=== PATIENT | female | born 1940 | race Caucasian/White ===

== ENCOUNTER 2019-07-14 06:26 | Day surgery (SDC) | payer MEDICARE, OTHER ==
[~2019-07-14] VITALS: Ht 162.6 cm; Wt 60.3 kg
[2019-07-14] VITALS (12 sets, daily range): BP systolic 126–180; BP diastolic 49–89
[2019-07-14] MEDS ORDERED: normal saline 1,000 ML IV SCH (06:55)
[2019-07-14] MEDS ORDERED: LORazepam 0.5 MG tablet PO PRN (06:55)
[2019-07-14] MEDS ORDERED: diphenhydrAMINE 25mg capsule PO PRN (06:55)
[2019-07-14] MEDS ORDERED: DILT120T3 PO (07:27)
[2019-07-14] MEDS ORDERED: FURO-150 PO (07:27)
[2019-07-14] MEDS ORDERED: LORA10TA61 PO (07:27)
[2019-07-14] MEDS ORDERED: CYCL1DRO PO (07:27)
[2019-07-14] MEDS ORDERED: LISI10TA4 PO (07:27)
[2019-07-14] MEDS ORDERED: CARV-50 PO (07:27)
[2019-07-14] MEDS ORDERED: [UNRECOGNIZED DRUG - CODE] PO (07:27)
[2019-07-14] MEDS ORDERED: MULT-955 PO (07:27)
[2019-07-14] MEDS ORDERED: OCUVITE PO (07:27)
[2019-07-14] MEDS ORDERED: LIDOcaine/PRILOcaine 5gm cream TP ONE (07:35)
[2019-07-14] MEDS ORDERED: LIDOcaine 1% (10mg/ml)w/preservative injection 20ml MDV ONE (07:45)
[2019-07-14] MEDS ORDERED: iohexol 350MG/ML 100ml bottle IV ONE (07:45)
[2019-07-14] MEDS ORDERED: midazolam 2 mg/2 ml injection ONE (07:45)
[2019-07-14] MEDS ORDERED: heparin 1,000unit/ml 10ml vial 10 ML ONE (07:45)
[2019-07-14] MEDS ORDERED: nitroGLYCERIN-Tridil 50MG/D5W 250 ML IV ONE (07:45)
[2019-07-14] MEDS ORDERED: fentaNYL/PF 50MCG/1 ML 2ML syringe ONE (07:45)
[2019-07-14] MEDS ORDERED: iohexol 350 MG/ML 50ML vial IV ONE (07:45)
[2019-07-14 08:01] LABS: EOSINOPHILS # (AUTO) 0.1 X10'3 (0-0.9); EOSINOPHILS % (AUTO) 2.3 % (0-6); HEMATOCRIT 41.8 % (35.0-45.0); HEMOGLOBIN 14.4 g/dl (12.0-16.0); LYMPHOCYTES # (AUTO) 0.9 X10'3 (1.1-4.8); LYMPHOCYTES % (AUTO) 30.3 % (21-51); MEAN CORPUSCULAR HEMOGLOBIN 36.2 PG (27.0-31.0); MEAN CORPUSCULAR HGB CONC 34.4 g/dL (33.0-36.5); MEAN CORPUSCULAR VOLUME 105.3 FL (78-98); MEAN PLATELET VOLUME 8.1 FL (7.4-10.4); MONOCYTES # (AUTO) 0.3 X10'3 (0-0.9); NEUTROPHILS # (AUTO) 1.7 X10'3 (1.8-7.7); NEUTROPHILS % (AUTO) 57.4 % (42-75); PLATELET COUNT 76 X10'3 (140-440); RED BLOOD COUNT 3.97 X10'6 (4.20-5.60); RED CELL DISTRIBUTION WIDTH 12.9 % (11.5-14.5)
[2019-07-14 08:10] LABS: ALBUMIN 3.6 G/DL (3.4-5.0); ANION GAP 13 (8-16); BLOOD UREA NITROGEN 8 MG/DL (7-18); BUN/CREATININE RATIO 11.3 (6.6-38.0); CALCIUM 8.7 MG/DL (8.5-10.1); CHLORIDE 106 MMOL/L (99-107); CREATININE 0.71 MG/DL (0.40-0.90); GLUCOSE 130 MG/DL (70-104); POTASSIUM 3.7 MMOL/L (3.5-5.1); SODIUM 140 MMOL/L (135-145); TOTAL CARBON DIOXIDE 21.1 MMOL/L (24-32); eGFR 79 ML/MIN
[2019-07-14 08:15] LABS: PARTIAL THROMBOPLASTIN TIME 31 SECONDS (22-32)
[2019-07-14] MEDS ORDERED: furosemide 40mg/4ml inj ONE (08:27)
[2019-07-14] MEDS ORDERED: verapamil 2.5 mg/ml inj IV ONE (08:41)
[2019-07-14 09:07] LABS: LARGE PLATELETS FEW; PLATELET ESTIMATE DECREASED
[2019-07-14] MEDS ORDERED: potassium Cl 10 mEq/100mL bag IV ONE (09:30)
[2019-07-14] MEDS ORDERED: magnesium 2GM in 50ml NS 50 ML IV PRN ×2 (10:45→15:05)
[2019-07-14] MEDS ORDERED: potassium Cl 20 mEq SR tablet PO PRN ×5 (10:45→15:05)
[2019-07-14] MEDS ORDERED: potassium Cl 20mEq/100mL bag 100 ML IV PRN (10:45)
[2019-07-14] MEDS ORDERED: magnesium 4gm in 100ml NS 100 ML IV PRN ×2 (10:45→15:05)
[2019-07-14] MEDS ORDERED: potassium CL 10mEq/100ml bag 100 ML IV PRN ×2 (10:45→15:05)
--- NOTE | 2019-07-14 10:55 | NUR ---
Royce MARMOLEJO at bedside.
[2019-07-14] MEDS ORDERED: potassium Cl 20 mEq SR tablet PO ONE (11:15)
[2019-07-14] MEDS ORDERED: furosemide 20 MG/2 ML vial IV ONE (11:20)
--- NOTE | 2019-07-14 11:30 | NUR ---
CORRECTION VASCULAR BAND WAS DEFLATED NOT INFLATED 2ML NOTED ON ASSESSMENT.
[2019-07-14] MEDS ORDERED: potassium chloride 10mEq ER tablet PO ONE (13:00)
--- NOTE | 2019-07-14 13:00 | NUR ---
U/S tech at bedside.
[2019-07-14] MEDS ORDERED: acetaminophen 325mg tablet PO PRN (13:20)
--- NOTE | 2019-07-14 14:30 | NUR ---
pt to transported to x-ray
[2019-07-14] MEDS ORDERED: magnesium Cl slow-release 64mg tablet PO PRN (15:05)
--- NOTE | 2019-07-14 16:00 | NUR ---
RT at bedside for PFT study
[2019-07-14 16:31] LABS: ABG BASE EXCESS 2.9 mmol/L (-2.0-3.0); ABG HCO3 25.3 mmol/L (22.0-26.0); ABG OXYGEN SATURATION 96.3 % (95-98); ABG PCO2 (T) 32.3 mmHg (35.0-45.0); ABG PH (T) 7.511 (7.350-7.450); ABG PO2 (T) 77.8 mmHg (83-108); ALLEN'S TEST Positive; FCOHb 1.1 % (0.5-1.5); FLOW 16 L/min; FMetHb 0.1 % (0.3-1.12); FO2Hb 95.1 % (94-100); TOTAL HEMOGLOBIN 15.1 G/dl (12.0-16.0)
--- NOTE | 2019-07-14 17:20 | NUR ---
Pt iv dc'd, cannula intact, no s/s of bleeding or infection.
[2019-07-22] MEDS ORDERED: RANI-635 PO (13:35)
== END 2019-07-14 17:20 | disposition home or self-care (01) ==
LOC: SSTAY O 06:26 → EDSTATUS 08:00 → SSTAY O 17:20
PROVIDERS: ATTEND Internal Medicine Cardiovascular Disease
DX: R94.39 Abnormal result of other cardiovascular function study (principal); I25.10 Atherosclerotic heart disease of native coronary artery without angina pectoris; I11.0 Hypertensive heart disease with heart failure; I50.30 Unspecified diastolic (congestive) heart failure; M81.0 Age-related osteoporosis without current pathological fracture; I27.20 Pulmonary hypertension, unspecified; D64.9 Anemia, unspecified; I08.3 Combined rheumatic disorders of mitral, aortic and tricuspid valves; Z85.038 Personal history of other malignant neoplasm of large intestine; Z98.890 Other specified postprocedural states; Z79.899 Other long term (current) drug therapy; Z90.49 Acquired absence of other specified parts of digestive tract; Z80.1 Family history of malignant neoplasm of trachea, bronchus and lung
CPT/HCPCS: 36415; 71046; 80048; 82803; 84132; 85018; 85025; 85610; 85730; 93005; 93312; 93460; 93567; 94010; 94760; 99152; 99153; C1769; C1894; J1644; J1940; J2001; J2250; J3010; J3480; J7030; Q0163; Q9967; 36600; 93456; 93458; 93880; 93971; A4620; A5120; A6258; J3490

== ENCOUNTER 2019-07-23 05:32 | Inpatient (IN) | payer MEDICARE, OTHER ==
[2019-07-22 14:16] LABS: BASOPHILS % (AUTO) 0.7 % (0-1); EOSINOPHILS # (AUTO) 0.1 X10'3 (0-0.9); EOSINOPHILS % (AUTO) 2.5 % (0-6); LYMPHOCYTES % (AUTO) 22.9 % (21-51); MEAN CORPUSCULAR HEMOGLOBIN 36.3 PG (27.0-31.0); MEAN CORPUSCULAR HGB CONC 34.4 g/dL (33.0-36.5); MEAN CORPUSCULAR VOLUME 105.5 FL (78-98); MEAN PLATELET VOLUME 8.2 FL (7.4-10.4); MONOCYTES # (AUTO) 0.6 X10'3 (0-0.9); NEUTROPHILS # (AUTO) 2.7 X10'3 (1.8-7.7); NEUTROPHILS % (AUTO) 60.9 % (42-75); PRE OP HEMATOCRIT 43.9 % (35.0-45.0); PRE OP HEMOGLOBIN 15.1 g/dL (12.0-16.0); RED BLOOD COUNT 4.16 X10'6 (4.20-5.60); RED CELL DISTRIBUTION WIDTH 12.5 % (11.5-14.5)
[2019-07-22 14:23] LABS: CLARITY,URINE SLIGHTLY CLOUDY (Clear); COLOR,URINE STRAW (Yellow); GLUCOSE, URINE NEGATIVE (Neg); KETONES,URINE NEGATIVE (Neg); LEUKOCYTE ESTERASE ,URINE TRACE (Neg); NITRITES, URINE NEGATIVE (Neg); OCCULT BLOOD,URINE TRACE-INTACT (Neg); PH,URINE 6.5 (4.8-8.0); PROTEIN,URINE NEGATIVE (Neg); UROBILINOGEN,URINE 0.2 E.U/dL (0.2-1.0)
[2019-07-22 14:24] LABS: UA COLLECTION TYPE CLN CATCH MIDSTREAM
[2019-07-22 14:26] LABS: HEMOGLOBIN A1C 5.3 % (4.5-6.2)
[2019-07-22 14:27] LABS: PRE OP INR 1.2 INR; PRE OP PROTIME 11.9 SECONDS (9.0-12.0)
[2019-07-22 14:30] LABS: SQUAMOUS EPITHELIAL CELL,UR FEW /LPF (FEW)
[2019-07-22 14:31] LABS: BACTERIA,URINE FEW /HPF (Neg); TRANSITIONAL EPI CELLS,URINE FEW /HPF; WBC,URINE 0-4 /HPF (0-4)
[2019-07-22 14:32] LABS: RBC,URINE 0-2 /HPF (0-2)
[2019-07-22 14:36] LABS: ALBUMIN 3.8 G/DL (3.4-5.0); ALKALINE PHOSPHATASE 148 IU/L (46-116); BLOOD UREA NITROGEN 10 MG/DL (7-18); BUN/CREATININE RATIO 14.3 (6.6-38.0); CALCIUM 9.1 MG/DL (8.5-10.1); CHLORIDE 101 MMOL/L (99-107); PRE OP ALT 61 U/L (30-65); PRE OP ANION GAP 8 (8-16); PRE OP AST 55 U/L (10-37); PRE OP BILIRUB, TOTAL 1.3 MG/DL (0.0-1.0); PRE OP GLUCOSE 106 MG/DL (70-104); PRE OP POTASSIUM 3.8 MMOL/L (3.4-5.1); PRE OP SODIUM 136 MMOL/L (135-145); TOTAL CARBON DIOXIDE 27.5 MMOL/L (24-32); TOTAL PROTEIN 7.7 G/DL (6.4-8.2); eGFR 81 ML/MIN
[2019-07-22 14:52] LABS: PRE OP PLATELET COUNT 100 X10'3 (140-440)
[~2019-07-23] VITALS: Ht 162.6 cm; Wt 68.5 kg
[2019-07-23] VITALS (16 sets, daily range): BP systolic 108–183; BP diastolic 50–77
[2019-07-23] MEDS: insulin regular, human inj. 100 UNITS in normal saline 100ml IV IV SCH ×4 (05:30→15:06)
[~2019-07-23 05:32] MED LIST: CARV-50 PO; CYCL1DRO PO; DILT120T3 PO; DOCUMENT DATE & TIME OF BETA-BLOCKER PO ONE; FURO-150 PO; LISI10TA4 PO; LORA10TA61 PO; MULT-955 PO; OCUVITE PO; RANI-635 PO; ROPIVAcaine 0.5% (5mg/ml) 30ml vial ONE; VANCOMYCIN INJ 1000 MG in NORMAL SALINE 250ml IV.SOLN IV ONE; [UNRECOGNIZED DRUG - CODE] PO; cefazolin/dext.iso 2gm/100ml 100 ML IV ONE; dextrose 50%-water 50ml dispensing syringe IV PRN; famotidine 20mg tablet PO ONE; gabapentin 400mg capsule PO ONE; metoprolol tartrate 12.5mg (1/2 tablet) PO ONE; midazolam 2 mg/2 ml injection IV ONE; ringers solution, lacted 1,000 ML IV SCH
[2019-07-23] MEDS ORDERED: LIDOcaine 1% (10mg/ml) 2ml vial ONE (05:53)
[2019-07-23] MEDS ORDERED: papaverine 30 mg/ml 2ml inj. IA ONE ×2 (05:55→08:00)
[2019-07-23] MEDS ORDERED: heparin 10,000 units/1 ML INJ IR ONE ×2 (05:55→08:00)
[2019-07-23] MEDS ORDERED: famotidine 10mg tablet PO ONE (06:10)
[2019-07-23] MEDS: mupirocin 2% nasal ointment 1gm UD NS SCH ×4 (06:11→20:47)
[2019-07-23] MEDS ORDERED: DOPamine/D5W 400mg/250ml bag IV ONE (07:55)
[2019-07-23] MEDS ORDERED: aminocaproic acid 250 MG/1 ML inj. ONE ×2 (07:55→14:00)
[2019-07-23] MEDS ORDERED: nitroGLYCERIN in D5W 50mg/250ml (Tridil) infusion IV ONE (07:55)
[2019-07-23] MEDS ORDERED: sevoflurane 250ml liquid IH ONE (07:55)
[2019-07-23] MEDS ORDERED: protamine sulf. 10mg/ml inj. IV ONE (07:55)
[2019-07-23] MEDS ORDERED: SUFENTANIL CITRATE 50 MCG/ML 2ml ampule IV ONE (07:58)
[2019-07-23] MEDS ORDERED: MIDAZolam 5mg/5ml vial ONE (07:59)
[2019-07-23] MEDS ORDERED: pancuronium br 1mg/ml inj IV ONE (08:02)
[2019-07-23] MEDS ORDERED: etomidate 2mg/ml inj. ONE (08:02)
[2019-07-23] MEDS ORDERED: ePHEDrine 50MG/ML INJ. ONE (08:17)
[2019-07-23 08:50] LABS: ABG BASE EXCESS -1.6 mmol/L (-2.0-3.0); ABG HCO3 21.2 mmol/L (22.0-26.0); ABG OXYGEN SATURATION 99.8 % (95-98); ABG PCO2 30.5 mmHg (35.0-45.0); ABG PH 7.459 (7.350-7.450); ABG PO2 394.9 mmHg (60.0-100.0); CL (ABG) 103 mmol/L (99-107); FCOHb 1.2 % (0.5-1.5); FMetHb 0.3 % (0.3-1.12); FO2Hb 98.3 % (94-100); GLUCOSE (ABG) 96 mg/dl (70-104); IONIZED CA (ABG) 1.12 mmol/L (1.03-1.32); K (ABG) 3.6 mmol/L (3.3-5.1); NA (ABG) 132 mmol/L (135-145); TOTAL HEMOGLOBIN 14.1 G/dl (12.0-16.0)
[2019-07-23 09:26] LABS: ABG BASE EXCESS -1.5 mmol/L (-2.0-3.0); ABG HCO3 20.6 mmol/L (22.0-26.0); ABG OXYGEN SATURATION 99.5 % (95-98); ABG PCO2 27.7 mmHg (35.0-45.0); ABG PO2 210.9 mmHg (60.0-100.0); CL (ABG) 102 mmol/L (99-107); FCOHb 1.4 % (0.5-1.5); FMetHb 0.1 % (0.3-1.12); GLUCOSE (ABG) 73 mg/dl (70-104); IONIZED CA (ABG) 1.11 mmol/L (1.03-1.32); NA (ABG) 133 mmol/L (135-145); TOTAL HEMOGLOBIN 12.8 G/dl (12.0-16.0)
[2019-07-23 09:26] LABS: ACT @ 1.70 U 390 SEC (193-297); ACT @ 2.84 U 586 SEC (260-420); BASELINE ACT 157 SEC (101-148); PATIENT WEIGHT 59.0k KG
[2019-07-23 09:40] LABS: ABG BASE EXCESS VENOUS 0.5 mmol/L; ABG HCO3 VENOUS 24.1 mmol/L; ABG PCO2 VENOUS 35.1 mmHg; ABG PO2 VENOUS 50.3 mmHg; CL (ABG) 97 mmol/L (99-107); FHHb VENOUS 12.1 %; FMetHb VENOUS 0.3 %; FO2Hb VENOUS 86.6 %; GLUCOSE (ABG) 67 mg/dl (70-104); IONIZED CA (ABG) 0.96 mmol/L (1.03-1.32); K (ABG) 3.4 mmol/L (3.3-5.1); NA (ABG) 132 mmol/L (135-145); TOTAL HEMOGLOBIN 10.3 G/dl (12.0-16.0)
[2019-07-23] MEDS ORDERED: NORMAL SALINE IV ONE (09:45)
[2019-07-23] MEDS ORDERED: DESMOPRESSIN IV ONE (09:45)
[2019-07-23 09:51] LABS: ABG BASE EXCESS -1.1 mmol/L (-2.0-3.0); ABG OXYGEN SATURATION 99.5 % (95-98); ABG PCO2 48.2 mmHg (35.0-45.0); ABG PH 7.333 (7.350-7.450); ABG PO2 431.2 mmHg (60.0-100.0); CL (ABG) 99 mmol/L (99-107); FCOHb 0.4 % (0.5-1.5); FMetHb 0.3 % (0.3-1.12); FO2Hb 98.8 % (94-100); GLUCOSE (ABG) 67 mg/dl (70-104); IONIZED CA (ABG) 1.04 mmol/L (1.03-1.32); K (ABG) 4.9 mmol/L (3.3-5.1); NA (ABG) 132 mmol/L (135-145); TOTAL HEMOGLOBIN 10.7 G/dl (12.0-16.0)
[2019-07-23 10:20] LABS: ABG BASE EXCESS -0.9 mmol/L (-2.0-3.0); ABG HCO3 23.4 mmol/L (22.0-26.0); ABG OXYGEN SATURATION 99.3 % (95-98); ABG PCO2 37.6 mmHg (35.0-45.0); ABG PH 7.412 (7.350-7.450); ABG PO2 371.2 mmHg (60.0-100.0); CL (ABG) 100 mmol/L (99-107); FCOHb 0.3 % (0.5-1.5); FMetHb 0.4 % (0.3-1.12); FO2Hb 98.6 % (94-100); GLUCOSE (ABG) 71 mg/dl (70-104); IONIZED CA (ABG) 0.93 mmol/L (1.03-1.32); K (ABG) 4.3 mmol/L (3.3-5.1); NA (ABG) 133 mmol/L (135-145); TOTAL HEMOGLOBIN 10.9 G/dl (12.0-16.0)
[2019-07-23 10:55] LABS: ABG BASE EXCESS -1.6 mmol/L (-2.0-3.0); ABG HCO3 23.6 mmol/L (22.0-26.0); ABG OXYGEN SATURATION 99.3 % (95-98); ABG PCO2 41.2 mmHg (35.0-45.0); ABG PH 7.375 (7.350-7.450); ABG PO2 370.8 mmHg (60.0-100.0); CL (ABG) 103 mmol/L (99-107); FCOHb 0.4 % (0.5-1.5); FMetHb 0.7 % (0.3-1.12); FO2Hb 98.2 % (94-100); GLUCOSE (ABG) 102 mg/dl (70-104); IONIZED CA (ABG) 0.99 mmol/L (1.03-1.32); K (ABG) 5.4 mmol/L (3.3-5.1); NA (ABG) 132 mmol/L (135-145); TOTAL HEMOGLOBIN 11.1 G/dl (12.0-16.0)
[2019-07-23 11:21] LABS: ABG BASE EXCESS -0.4 mmol/L (-2.0-3.0); ABG HCO3 23.8 mmol/L (22.0-26.0); ABG OXYGEN SATURATION 99.3 % (95-98); ABG PCO2 37.3 mmHg (35.0-45.0); ABG PH 7.422 (7.350-7.450); ABG PO2 357.3 mmHg (60.0-100.0); CL (ABG) 104 mmol/L (99-107); FCOHb 0.1 % (0.5-1.5); FMetHb 0.5 % (0.3-1.12); FO2Hb 98.7 % (94-100); GLUCOSE (ABG) 131 mg/dl (70-104); IONIZED CA (ABG) 0.98 mmol/L (1.03-1.32); K (ABG) 4.3 mmol/L (3.3-5.1); NA (ABG) 132 mmol/L (135-145)
[2019-07-23 11:50] LABS: ABG BASE EXCESS 6.6 mmol/L (-2.0-3.0); ABG HCO3 30.7 mmol/L (22.0-26.0); ABG OXYGEN SATURATION 98.9 % (95-98); ABG PCO2 42.5 mmHg (35.0-45.0); ABG PH 7.477 (7.350-7.450); ABG PO2 324.8 mmHg (60.0-100.0); CL (ABG) 100 mmol/L (99-107); FCOHb 0.3 % (0.5-1.5); FMetHb 0.7 % (0.3-1.12); FO2Hb 97.9 % (94-100); GLUCOSE (ABG) 139 mg/dl (70-104); IONIZED CA (ABG) 0.89 mmol/L (1.03-1.32); K (ABG) 3.9 mmol/L (3.3-5.1); NA (ABG) 133 mmol/L (135-145); TOTAL HEMOGLOBIN 9.8 G/dl (12.0-16.0)
[2019-07-23 13:00] LABS: ABG BASE EXCESS VENOUS -6.1 mmol/L; ABG HCO3 VENOUS 15.2 mmol/L; ABG PCO2 VENOUS 21.4 mmHg; ABG PO2 VENOUS 54.1 mmHg; CL (ABG) 112 mmol/L (99-107); FCOHb VENOUS 1.6 %; FHHb VENOUS 10.1 %; FMetHb VENOUS 0.5 %; FO2Hb VENOUS 87.8 %; GLUCOSE (ABG) 123 mg/dl (70-104); IONIZED CA (ABG) 1.12 mmol/L (1.03-1.32); K (ABG) 3.2 mmol/L (3.3-5.1); NA (ABG) 137 mmol/L (135-145); TOTAL HEMOGLOBIN 14.5 G/dl (12.0-16.0)
[2019-07-23] MEDS ORDERED: calcium chloride 100 MG/1 ML inj IV ONE ×2 (13:08→14:00)
[2019-07-23 13:10] LABS: ACTIVATED CLOTTING TIME 98 SEC (101-148)
[2019-07-23 13:10] LABS: ACTIVATED CLOTTING TIME 143 SEC (101-148)
[2019-07-23] MEDS ORDERED: albumin (Human) 5% 250ml 250 ML IV ONE (13:22)
[2019-07-23] MEDS ORDERED: insulin regular, human inj. 100 UNITS in normal saline 100ml IV soln 100 ML IV SCH ×2 (13:50)
[2019-07-23] MEDS ORDERED: magnesium 4gm in 100ml NS 100 ML IV PRN (13:50)
[2019-07-23] MEDS ORDERED: sodium phosphate inj. 30 MMOL in dextrose 5%-water 250 ML IV PRN (13:50)
[2019-07-23] MEDS ORDERED: HYDROcodone/acetaminophen 10/325mg tab PO PRN (13:50)
[2019-07-23] MEDS ORDERED: dextrose 50%-water 50ml dispensing syringe IV PRN (13:50)
[2019-07-23] MEDS ORDERED: niCARDipine-NS 40mg/200ml IVPB 200 ML IV PRN (13:50)
[2019-07-23] MEDS ORDERED: Neutra Phos packet PO PRN (13:50)
[2019-07-23] MEDS ORDERED: DOPamine 400mg/D5W 250ml 250 ML IV PRN (13:50)
[2019-07-23] MEDS ORDERED: metoclopramide 5 mg/ml inj IV PRN (13:50)
[2019-07-23] MEDS ORDERED: morphine 4 MG/ML inj SYRINge IV PRN ×2 (13:50)
[2019-07-23] MEDS ORDERED: sodium phosphate inj. 15 MMOL in dextrose 5%-water 150 ML IV PRN (13:50)
[2019-07-23] MEDS ORDERED: albumin (Human) 5% 250ml 250 ML IV PRN (13:50)
[2019-07-23] MEDS ORDERED: normal saline 250ml IV soln 250 ML IV PRN (13:50)
[2019-07-23] MEDS ORDERED: pantoprazole 40 MG vial IV ONE (13:50)
[2019-07-23] MEDS ORDERED: potassium Cl 20 mEq SR tablet PO PRN (13:50)
[2019-07-23] MEDS ORDERED: nitroGLYCERIN-Tridil 50MG/D5W 250 ML IV PRN (13:50)
--- NOTE | 2019-07-23 13:50 | NUR ---
Received to room 2008, accompanied by MDs and surgical crew. Placed on ventilator, to hitch technician, arterial line and PA line pressure monitored. Chest tubes to suction at 20 cm. [place] V[place] cath to gravity drainage. Dressings are dry and intact. See assessment record. All vasoactive drugs are infusing via central line.
[2019-07-23] MEDS ORDERED: phenylephrine 10mg/ml inj. ONE (14:00)
[2019-07-23] MEDS ORDERED: methylPREDNISolone sod. succ. 500mg inj ONE (14:00)
[2019-07-23] MEDS ORDERED: MAGNESIUM SULFATE 4 MEQ/ML (5gm/10ml) injection ONE (14:00)
[2019-07-23] MEDS ORDERED: albumin (human) 25% 100 ML IV solution IV ONE (14:00)
[2019-07-23] MEDS ORDERED: LIDOcaine 2% (20 mg/ml) 5ml cardiac syringe ONE (14:00)
[2019-07-23] MEDS ORDERED: sodium bicarbonate (8.4%) 1 mEq/ml syringe ONE (14:00)
[2019-07-23] MEDS ORDERED: potassium Cl 2 mEq/ml inj IV ONE (14:00)
[2019-07-23] MEDS ORDERED: heparin 10,000 units/1 ML INJ ONE (14:00)
[2019-07-23 14:01] LABS: ABG BASE EXCESS -1.1 mmol/L (-2.0-3.0); ABG OXYGEN SATURATION 97.8 % (95-98); ABG PCO2 (T) 35.2 mmHg (35.0-45.0); ABG PH (T) 7.431 (7.350-7.450); ABG PO2 (T) 109.8 mmHg (83-108); FCOHb 0.3 % (0.5-1.5); FMetHb 0.2 % (0.3-1.12); FO2Hb 97.3 % (94-100); MINUTE VOLUME 5 L/min; PATIENT TEMPERATURE 36.4; PEEP 5 cm H2O; RESPIRATORY RATE 10 b/min; RESPIRATORY RATE (OBSERVED) 10 b/min; TIDAL VOLUME 500 mL; TOTAL HEMOGLOBIN 11.4 G/dl (12.0-16.0)
[2019-07-23 14:01] LABS: BASOPHILS % (AUTO) 0.2 % (0-1); EOSINOPHILS % (AUTO) 0.2 % (0-6); HEMOGLOBIN 10.6 g/dl (12.0-16.0); LYMPHOCYTES # (AUTO) 0.5 X10'3 (1.1-4.8); MEAN PLATELET VOLUME 7.3 FL (7.4-10.4); NEUTROPHILS # (AUTO) 6.6 X10'3 (1.8-7.7); RED CELL DISTRIBUTION WIDTH 12.5 % (11.5-14.5)
[2019-07-23 14:15] LABS: ALANINE AMINOTRANSFERASE 40 U/L (12-78); ALBUMIN 3.1 G/DL (3.4-5.0); ALBUMIN/GLOBULIN RATIO 1.4 (1.1-1.5); ALKALINE PHOSPHATASE 78 IU/L (46-116); ANION GAP 9 (8-16); ASPARTATE AMINO TRANSFERASE 67 U/L (10-37); BILIRUBIN,TOTAL 2.3 MG/DL (0.1-1.0); BLOOD UREA NITROGEN 10 MG/DL (7-18); BUN/CREATININE RATIO 11.8 (6.6-38.0); CALCIUM 9.9 MG/DL (8.5-10.1); CHLORIDE 106 MMOL/L (99-107); CREATININE 0.85 MG/DL (0.40-0.90); GLUCOSE 172 MG/DL (70-104); MAGNESIUM 2.7 MG/DL (1.5-2.4); PHOSPHORUS 2.3 MG/DL (2.3-4.5); SODIUM 142 MMOL/L (135-145); TOTAL CARBON DIOXIDE 26.9 MMOL/L (24-32); TOTAL PROTEIN 5.3 G/DL (6.4-8.2); eGFR 64 ML/MIN
[2019-07-23 14:19] LABS: HEMATOCRIT 30.3 % (35.0-45.0); LYMPHOCYTES % (AUTO) 6.7 % (21-51); MEAN CORPUSCULAR HGB CONC 35.2 g/dL (33.0-36.5); MEAN CORPUSCULAR VOLUME 105.4 FL (78-98); MONOCYTES # (AUTO) 0.7 X10'3 (0-0.9); MONOCYTES % (AUTO) 8.3 % (2-12); NEUTROPHILS % (AUTO) 84.6 % (42-75); PLATELET COUNT 131 X10'3 (140-440); RED BLOOD COUNT 2.87 X10'6 (4.20-5.60); WHITE BLOOD COUNT 7.9 X10'3 (4.5-11.0)
[2019-07-23 14:20] LABS: POTASSIUM 3.5 MMOL/L (3.5-5.1)
[2019-07-23 15:00] LABS: PARTIAL THROMBOPLASTIN TIME 42 SECONDS (22-32)
[2019-07-23] MEDS: potassium Cl 20mEq/100mL bag 100 ML IV PRN ×3 (15:24→18:22)
[2019-07-23] MEDS: sodium chloride 0.45% 1,000 ML IV SCH (15:25)
[2019-07-23] MEDS: ceFAZolin 1GM/D5W- ADD-VANTAGE 50 ML IV SCH (16:24)
[2019-07-23] MEDS: insulin Lispro (HumaLOG) vial - multi-dose SQ SCH (17:00)
--- NOTE | 2019-07-23 18:03 | NUR ---
Problems reprioritized. Patient report given, questions answered & plan of care reviewed with oncoming shift.
--- NOTE | 2019-07-23 18:30 | NUR ---
Patient in room CICU 2007. I have received report from Claribel HARE and had the opportunity to ask questions and assume patient care. Patient intubated, very drowsy but easily arousable. Patient breathing at set rate of 10 breaths/min. SBT trial attempted, minute ventilation dropped to 2.2, rate dropped to 4 breaths/min, tidal volumes dropped to 200s. Placed patient back on ordered rate. SBP in 130s, on 5mcg/kg/min nitro and 2.0 mcg/kg/min of dopamine. Patient 100% AV paced with rate set at 80 bpm. Will continue to monitor patient closely.
[2019-07-23] MEDS: cycloSPORINE 0.05% ophthalmic emulsion EACHEYE SCH (20:00)
[2019-07-23] MEDS: docusate sod 100mg capsule PO SCH (20:00)
[2019-07-23] MEDS: gabapentin 300mg capsule PO SCH (20:46)
[2019-07-23] MEDS: vancomycin/NS 1 GM ADD-VANTAGE 250 ML IV SCH (20:47)
[2019-07-23 21:41] LABS: BASOPHILS % (AUTO) 0.1 % (0-1); EOSINOPHILS % (AUTO) 0 % (0-6); HEMATOCRIT 28.9 % (35.0-45.0); HEMOGLOBIN 10.1 g/dl (12.0-16.0); LYMPHOCYTES # (AUTO) 0.6 X10'3 (1.1-4.8); LYMPHOCYTES % (AUTO) 10.3 % (21-51); MEAN CORPUSCULAR HEMOGLOBIN 36.8 PG (27.0-31.0); MEAN CORPUSCULAR HGB CONC 34.9 g/dL (33.0-36.5); MEAN CORPUSCULAR VOLUME 105.4 FL (78-98); MEAN PLATELET VOLUME 8.2 FL (7.4-10.4); MONOCYTES # (AUTO) 0.4 X10'3 (0-0.9); MONOCYTES % (AUTO) 7.8 % (2-12); NEUTROPHILS # (AUTO) 4.7 X10'3 (1.8-7.7); NEUTROPHILS % (AUTO) 81.8 % (42-75); PLATELET COUNT 96 X10'3 (140-440); RED BLOOD COUNT 2.74 X10'6 (4.20-5.60); RED CELL DISTRIBUTION WIDTH 12.7 % (11.5-14.5); WHITE BLOOD COUNT 5.7 X10'3 (4.5-11.0)
--- NOTE | 2019-07-23 21:52 | NUR ---
Pacer rate turned down to 60 bpm. Patient rhythm dropped to 60 bpm, appeared to be first degree block with bradycardia. Rate turned back up to 80 bpm.
[2019-07-23 21:55] LABS: ALBUMIN 3.4 G/DL (3.4-5.0); ANION GAP 10 (8-16); BLOOD UREA NITROGEN 11 MG/DL (7-18); BUN/CREATININE RATIO 13.1 (6.6-38.0); CALCIUM 9.1 MG/DL (8.5-10.1); CHLORIDE 110 MMOL/L (99-107); CREATININE 0.84 MG/DL (0.40-0.90); GLUCOSE 140 MG/DL (70-104); MAGNESIUM 2.3 MG/DL (1.5-2.4); PHOSPHORUS 3.2 MG/DL (2.3-4.5); POTASSIUM 3.9 MMOL/L (3.5-5.1); SODIUM 145 MMOL/L (135-145); TOTAL CARBON DIOXIDE 25.2 MMOL/L (24-32); eGFR 65 ML/MIN
[2019-07-23] MEDS: ondansetron/PF 4mg/2ml inj IV PRN (22:05)
[2019-07-24] VITALS (24 sets, daily range): BP systolic 101–153; BP diastolic 41–110
[2019-07-24] MEDS: ceFAZolin 1GM/D5W- ADD-VANTAGE 50 ML IV SCH ×3 (00:48→16:41)
--- NOTE | 2019-07-24 00:53 | NUR ---
Multiple SBT trials have been made since beginning of shift. Patient ventilates adequately when awake, but continues to fall asleep and become apneic when asleep. Patient easily arousable, but falls asleep frequently and unable to stay awake long enough to maintain adequate ventilation. Remains intubated at this time, placed back on rate ordered by MD. Will continue to attempt SBT trials and to monitor patient LOC frequently. No weaning parameters have been obtained due to inability to ventilate spontaneously while asleep.
--- NOTE | 2019-07-24 01:55 | NUR ---
Patient purposely pulled out ET tube during linen change. RT and full charge bookkeeper notified. Patient placed on 4L NC, saturating at 96% and breathing evenly/unlabored at 20 breaths/min. Patient able to state name, voice hoarse with no stridor noted. Patient alert/oriented x4. BP elevated to 180s systollically, nitro increased to reduce BP per eMAR orders. Will continue to monitor patient respiratory status closely, will continue to monitor patient's BP and LOC as well.
[2019-07-24] MEDS ORDERED: albuterol 2.5 MG/3 ML nebule NEB PRN (02:10)
[2019-07-24 05:13] LABS: BASOPHILS % (AUTO) 0.1 % (0-1); EOSINOPHILS % (AUTO) 0 % (0-6); HEMATOCRIT 26.6 % (35.0-45.0); HEMOGLOBIN 9.3 g/dl (12.0-16.0); LYMPHOCYTES # (AUTO) 0.6 X10'3 (1.1-4.8); LYMPHOCYTES % (AUTO) 8.2 % (21-51); MEAN CORPUSCULAR VOLUME 105.9 FL (78-98); MEAN PLATELET VOLUME 8.2 FL (7.4-10.4); MONOCYTES # (AUTO) 0.6 X10'3 (0-0.9); MONOCYTES % (AUTO) 7.5 % (2-12); NEUTROPHILS # (AUTO) 6.4 X10'3 (1.8-7.7); NEUTROPHILS % (AUTO) 84.2 % (42-75); PLATELET COUNT 80 X10'3 (140-440); RED BLOOD COUNT 2.51 X10'6 (4.20-5.60); RED CELL DISTRIBUTION WIDTH 12.7 % (11.5-14.5); WHITE BLOOD COUNT 7.6 X10'3 (4.5-11.0)
[2019-07-24 05:22] LABS: PARTIAL THROMBOPLASTIN TIME 29 SECONDS (22-32)
[2019-07-24 05:36] LABS: ALANINE AMINOTRANSFERASE 191 U/L (12-78); ALBUMIN 3.3 G/DL (3.4-5.0); ALBUMIN/GLOBULIN RATIO 1.5 (1.1-1.5); ALKALINE PHOSPHATASE 68 IU/L (46-116); ANION GAP 11 (8-16); ASPARTATE AMINO TRANSFERASE 317 U/L (10-37); BILIRUBIN,TOTAL 1.4 MG/DL (0.1-1.0); BLOOD UREA NITROGEN 11 MG/DL (7-18); BUN/CREATININE RATIO 12.1 (6.6-38.0); CALCIUM 8.4 MG/DL (8.5-10.1); CHLORIDE 111 MMOL/L (99-107); CREATININE 0.91 MG/DL (0.40-0.90); GLUCOSE 108 MG/DL (70-104); MAGNESIUM 2.1 MG/DL (1.5-2.4); POTASSIUM 3.7 MMOL/L (3.5-5.1); SODIUM 147 MMOL/L (135-145); TOTAL CARBON DIOXIDE 25.3 MMOL/L (24-32); TOTAL PROTEIN 5.5 G/DL (6.4-8.2); eGFR 59 ML/MIN
[2019-07-24] MEDS: potassium Cl 20mEq/100mL bag 100 ML IV PRN ×2 (05:56→08:20)
[2019-07-24] MEDS: magnesium 2GM in 50ml NS 50 ML IV PRN (05:56)
--- NOTE | 2019-07-24 06:15 | NUR ---
Patient in room CICU 2007. I have received report from police shift commander and had the opportunity to ask questions and assume patient care.
--- NOTE | 2019-07-24 06:18 | NUR ---
Problems reprioritized. Patient report given, questions answered & plan of care reviewed with Claribel HARE.
[2019-07-24 07:16] LABS: PLATELET ESTIMATE DECREASED; TOTAL CELLS COUNTED 100
[2019-07-24] MEDS ORDERED: metoprolol tartrate 12.5mg (1/2 tablet) PO SCH (08:00)
[2019-07-24] MEDS ORDERED: aspirin 325mg tablet, delayed-release (Ecotrin) PO SCH (08:00)
[2019-07-24] MEDS: cycloSPORINE 0.05% ophthalmic emulsion EACHEYE SCH ×2 (08:11→21:46)
[2019-07-24] MEDS: docusate sod 100mg capsule PO SCH ×2 (08:11→20:49)
[2019-07-24] MEDS: gabapentin 300mg capsule PO SCH ×3 (08:11→20:49)
[2019-07-24] MEDS: multivitamins, therapeutics tablet PO SCH (08:11)
[2019-07-24] MEDS: vancomycin/NS 1 GM ADD-VANTAGE 250 ML IV SCH ×2 (08:12→20:48)
[2019-07-24] MEDS: atorvastatin 10mg tablet PO SCH (08:12)
[2019-07-24] MEDS: loratadine 10mg tablet PO SCH (08:12)
[2019-07-24] MEDS: mupirocin 2% nasal ointment 1gm UD NS SCH ×2 (08:12→20:49)
[2019-07-24] MEDS: insulin Lispro (HumaLOG) vial - multi-dose SQ SCH ×2 (08:15→19:06)
[2019-07-24] MEDS ORDERED: nitroGLYCERIN-Tridil 50MG/D5W 250 ML IV PRN (09:47)
[2019-07-24] MEDS ORDERED: DOPamine 400mg/D5W 250ml 250 ML IV PRN (09:47)
[2019-07-24] MEDS ORDERED: niCARDipine-NS 40mg/200ml IVPB 200 ML IV PRN (09:47)
[2019-07-24] MEDS: HYDROcodone/acetaminophen 10/325mg tab PO PRN ×3 (10:16→23:01)
--- NOTE | 2019-07-24 11:26 | NUR ---
CABG Consult: Pt will need CABG ed once stable prior to d/c. MCV 105.9 hx thrombocytopenia as well as colon CA w/ chemo [id number] per RN. MCV likely combination of factors per MD given pt no hx etoh or gastric surgery. Addendum: 07/24/19 at [address] Amended: Links added.
[2019-07-24] MEDS: sodium chloride 0.45% 1,000 ML IV SCH (16:45)
[2019-07-24] MEDS ORDERED: dextrose 50%-water 50ml dispensing syringe IV PRN ×2 (17:30)
[2019-07-24] MEDS ORDERED: dextrose ORAL solution 15 GM/59 ML bottle PO PRN ×2 (17:30)
[2019-07-24] MEDS ORDERED: glucagon, human recombinant 1mg kit SUBCUT PRN (17:30)
--- NOTE | 2019-07-24 18:05 | NUR ---
Problems reprioritized. Patient report given, questions answered & plan of care reviewed with oncoming shift.
[2019-07-24] MEDS: insulin glargine (Lantus) pen - multi-dose SQ SCH (21:49)
[2019-07-25] VITALS (24 sets, daily range): BP systolic 92–135; BP diastolic 32–59
[2019-07-25] MEDS: ceFAZolin 1GM/D5W- ADD-VANTAGE 50 ML IV SCH (00:46)
[2019-07-25 03:26] LABS: ALBUMIN 3.1 G/DL (3.4-5.0); ANION GAP 4 (8-16); BASOPHILS % (AUTO) 0 % (0-1); BLOOD UREA NITROGEN 29 MG/DL (7-18); CALCIUM 7.8 MG/DL (8.5-10.1); CHLORIDE 103 MMOL/L (99-107); CREATININE 1.53 MG/DL (0.40-0.90); EOSINOPHILS % (AUTO) 0 % (0-6); GLUCOSE 155 MG/DL (70-104); HEMATOCRIT 22.9 % (35.0-45.0); HEMOGLOBIN 7.9 g/dl (12.0-16.0); LYMPHOCYTES # (AUTO) 0.9 X10'3 (1.1-4.8); LYMPHOCYTES % (AUTO) 9.5 % (21-51); MAGNESIUM 2.7 MG/DL (1.5-2.4); MEAN CORPUSCULAR HEMOGLOBIN 36.6 PG (27.0-31.0); MEAN CORPUSCULAR HGB CONC 34.3 g/dL (33.0-36.5); MEAN CORPUSCULAR VOLUME 106.6 FL (78-98); MEAN PLATELET VOLUME 8.7 FL (7.4-10.4); MONOCYTES # (AUTO) 1.1 X10'3 (0-0.9); MONOCYTES % (AUTO) 11.1 % (2-12); NEUTROPHILS # (AUTO) 7.8 X10'3 (1.8-7.7); NEUTROPHILS % (AUTO) 79.4 % (42-75); PLATELET COUNT 61 X10'3 (140-440); POTASSIUM 5.2 MMOL/L (3.5-5.1); RED BLOOD COUNT 2.15 X10'6 (4.20-5.60); SODIUM 134 MMOL/L (135-145); TOTAL CARBON DIOXIDE 27.5 MMOL/L (24-32); WHITE BLOOD COUNT 9.9 X10'3 (4.5-11.0); eGFR 33 ML/MIN
[2019-07-25] MEDS ORDERED: furosemide 20 MG/2 ML vial IV ONE (07:40)
[2019-07-25] MEDS: atorvastatin 10mg tablet PO SCH (07:46)
[2019-07-25] MEDS: pantoprazole 40mg Tablet.DR PO SCH (07:47)
[2019-07-25] MEDS: cycloSPORINE 0.05% ophthalmic emulsion EACHEYE SCH ×2 (07:48→21:06)
[2019-07-25] MEDS: docusate sod 100mg capsule PO SCH ×2 (07:48→21:06)
[2019-07-25] MEDS: multivitamins, therapeutics tablet PO SCH (07:49)
[2019-07-25] MEDS: mupirocin 2% nasal ointment 1gm UD NS SCH (07:49)
[2019-07-25] MEDS: gabapentin 300mg capsule PO SCH ×2 (07:49→13:43)
[2019-07-25] MEDS: loratadine 10mg tablet PO SCH (07:49)
[2019-07-25] MEDS: aspirin 81mg tab.chew PO SCH (07:59)
[2019-07-25] MEDS ORDERED: multivitamins, therapeutics tablet PO SCH (08:00)
[2019-07-25] MEDS: insulin Lispro (HumaLOG) vial - multi-dose SQ SCH ×2 (08:52→13:40)
[2019-07-25] MEDS: HYDROcodone/acetaminophen 10/325mg tab PO PRN (11:06)
--- NOTE | 2019-07-25 18:10 | NUR ---
Patient in room CICU 2007. I have received report from offgoing RN and had the opportunity to ask questions and assume patient care.
--- NOTE | 2019-07-25 18:10 | NUR ---
Problems reprioritized. Patient report given, questions answered & plan of care reviewed with oncoming shift.
[2019-07-25] MEDS: insulin glargine (Lantus) pen - multi-dose SQ SCH (22:16)
[2019-07-26] VITALS (29 sets, daily range): BP systolic 93–126; BP diastolic 33–67
--- NOTE | 2019-07-26 00:47 | NUR ---
SBP remains in low 90s; AV pacer at 70/min; increased pacer rate to 80/min w/small improvement in SBP,
[2019-07-26] MEDS: acetaminophen 325mg tablet PO PRN ×2 (00:52→22:05)
[2019-07-26 02:59] LABS: BASOPHILS % (AUTO) 0.1 % (0-1); EOSINOPHILS % (AUTO) 0.3 % (0-6); HEMOGLOBIN 7.3 g/dl (12.0-16.0); LYMPHOCYTES # (AUTO) 1.2 X10'3 (1.1-4.8); LYMPHOCYTES % (AUTO) 16.3 % (21-51); MEAN CORPUSCULAR HEMOGLOBIN 36.8 PG (27.0-31.0); MEAN CORPUSCULAR HGB CONC 34.6 g/dL (33.0-36.5); MEAN CORPUSCULAR VOLUME 106.5 FL (78-98); MEAN PLATELET VOLUME 8.8 FL (7.4-10.4); MONOCYTES # (AUTO) 0.9 X10'3 (0-0.9); MONOCYTES % (AUTO) 11.4 % (2-12); NEUTROPHILS # (AUTO) 5.4 X10'3 (1.8-7.7); NEUTROPHILS % (AUTO) 71.9 % (42-75); PLATELET COUNT 51 X10'3 (140-440); RED BLOOD COUNT 1.98 X10'6 (4.20-5.60); RED CELL DISTRIBUTION WIDTH 12.7 % (11.5-14.5); WHITE BLOOD COUNT 7.5 X10'3 (4.5-11.0)
[2019-07-26 03:03] LABS: HEMATOCRIT 21.1 % (35.0-45.0)
[2019-07-26 03:18] LABS: ANION GAP 5 (8-16); BLOOD UREA NITROGEN 48 MG/DL (7-18); BUN/CREATININE RATIO 29.1 (6.6-38.0); CALCIUM 7.8 MG/DL (8.5-10.1); CHLORIDE 98 MMOL/L (99-107); CREATININE 1.65 MG/DL (0.40-0.90); GLUCOSE 116 MG/DL (70-104); MAGNESIUM 2.4 MG/DL (1.5-2.4); PHOSPHORUS 3.6 MG/DL (2.3-4.5); POTASSIUM 4.6 MMOL/L (3.5-5.1); SODIUM 128 MMOL/L (135-145); TOTAL CARBON DIOXIDE 25.5 MMOL/L (24-32); eGFR 30 ML/MIN
--- NOTE | 2019-07-26 03:39 | NUR ---
Transfusion of 1 unit PRBC begun at infusion rate of 50 ml/hr.
--- NOTE | 2019-07-26 04:05 | NUR ---
Transfusion rate increased to 150 ml/hr. This RN will continue to monitor patient for s/s of transfusion reaction.
[2019-07-26] MEDS: ondansetron/PF 4mg/2ml inj IV PRN (05:18)
--- NOTE | 2019-07-26 07:06 | NUR ---
Problems reprioritized. Patient report given, questions answered & plan of care reviewed with Maureen HARE.
[2019-07-26] MEDS: aspirin 81mg tab.chew PO SCH (08:45)
[2019-07-26] MEDS: atorvastatin 10mg tablet PO SCH (08:45)
[2019-07-26] MEDS: docusate sod 100mg capsule PO SCH ×2 (08:45→21:22)
[2019-07-26] MEDS: loratadine 10mg tablet PO SCH (08:45)
[2019-07-26] MEDS: multivitamins, therapeutics tablet PO SCH (08:45)
[2019-07-26] MEDS: pantoprazole 40mg Tablet.DR PO SCH (08:48)
[2019-07-26] MEDS ORDERED: furosemide 40mg/4ml inj IV ONE (09:05)
[2019-07-26] MEDS: HYDROcodone/acetaminophen 10/325mg tab PO PRN (09:58)
[2019-07-26] MEDS: benzocaine/menthol oral lozeng 1 EACH BOX MM PRN (10:53)
--- NOTE | 2019-07-26 12:25 | NUR ---
PATIENT UP AMBULATED WITH PT IN HALLWAY, AND IS NOW UP IN CHAIR. NO C/O AT THIS TIME. PATIENT STATES" CHIKACO ,THAT WAS GIVEN EARLIER , HELPED." CALL LIGHT IN REACH. HEART RATE IN THE 60 'S ; PACER RATE SET AT 30 PER ORDER. Addendum: 07/26/19 at 1237 by Ana Sanon RN Amended: Links added.
[2019-07-26] MEDS: insulin Lispro (HumaLOG) vial - multi-dose SQ SCH (13:55)
[2019-07-26] MEDS ORDERED: potassium Cl 20 mEq SR tablet PO ONE (16:00)
[2019-07-26] MEDS ORDERED: furosemide 20 MG/2 ML vial IV ONE (16:00)
--- NOTE | 2019-07-26 18:03 | NUR ---
PATIENT'S HEART RHYTHM CHANGED TO ATRIAL FIB , RATE 120. EKG TAKEN AND AFFIRMED RHYTHM. DR. WASHINGTON APPRISED ; ORDERS RECEIVED AND NOTED. Addendum: 07/26/19 at 1849 by Ana Sanon RN Amended: Links added.
--- NOTE | 2019-07-26 18:30 | NUR ---
Patient in room CICU 2007. I have received report from Maureen HARE and had the opportunity to ask questions and assume patient care.
--- NOTE | 2019-07-26 18:30 | NUR ---
REPORT GIVEN TO HAT DESIGNER RN,INCLUDING, BUT NOT LIMITED TO, DR. WASHINGTON'S ORDERS TO KEEP VIGILANT WATCH ON PATIENT'S HEART RHYTHM WITH CORDARONE GTT; DUE TO POSSIBLE DROP IN HEART RATE AND BLOCKING.TURN PACER RATE UP IF HEART RATE DROPS AND BLOCKING OCCURS. Addendum: 07/26/19 at 1950 by Ana Sanon RN Amended: Links added.
[2019-07-26] MEDS ORDERED: amiodarone 50MG/ML inj IV ONE (18:45)
[2019-07-26] MEDS ORDERED: amiodarone 150mg/dext, iso-os 100 ML IV ONE ×2 (18:45→18:46)
[2019-07-26] MEDS ORDERED: amiodarone/D5 360MG/200ML BAG 200 ML IV ONE (18:46)
[2019-07-26] MEDS: cycloSPORINE 0.05% ophthalmic emulsion EACHEYE SCH ×2 (21:22→22:05)
[2019-07-26] MEDS: amiodarone/D5 360MG/200ML BAG 200 ML IV SCH (21:29)
[2019-07-26] MEDS: insulin glargine (Lantus) pen - multi-dose SQ SCH (21:31)
[2019-07-27] VITALS (24 sets, daily range): BP systolic 92–137; BP diastolic 44–88
[2019-07-27 03:06] LABS: BASOPHILS % (AUTO) 0.1 % (0-1); EOSINOPHILS # (AUTO) 0.1 X10'3 (0-0.9); EOSINOPHILS % (AUTO) 1.3 % (0-6); HEMATOCRIT 23.4 % (35.0-45.0); HEMOGLOBIN 8.1 g/dl (12.0-16.0); LYMPHOCYTES % (AUTO) 17.6 % (21-51); MEAN CORPUSCULAR HEMOGLOBIN 36.1 PG (27.0-31.0); MEAN CORPUSCULAR HGB CONC 34.8 g/dL (33.0-36.5); MEAN CORPUSCULAR VOLUME 103.7 FL (78-98); MEAN PLATELET VOLUME 8.9 FL (7.4-10.4); MONOCYTES # (AUTO) 0.9 X10'3 (0-0.9); MONOCYTES % (AUTO) 16.2 % (2-12); NEUTROPHILS # (AUTO) 3.6 X10'3 (1.8-7.7); NEUTROPHILS % (AUTO) 64.8 % (42-75); RED BLOOD COUNT 2.25 X10'6 (4.20-5.60); RED CELL DISTRIBUTION WIDTH 13.8 % (11.5-14.5); WHITE BLOOD COUNT 5.5 X10'3 (4.5-11.0)
[2019-07-27 03:18] LABS: PLATELET COUNT 46 X10'3 (140-440)
[2019-07-27 03:23] LABS: ALBUMIN 2.8 G/DL (3.4-5.0); ANION GAP 2 (8-16); BLOOD UREA NITROGEN 44 MG/DL (7-18); CALCIUM 7.7 MG/DL (8.5-10.1); CHLORIDE 98 MMOL/L (99-107); CREATININE 1.19 MG/DL (0.40-0.90); GLUCOSE 118 MG/DL (70-104); MAGNESIUM 2.1 MG/DL (1.5-2.4); PHOSPHORUS 2.8 MG/DL (2.3-4.5); POTASSIUM 4.7 MMOL/L (3.5-5.1); SODIUM 128 MMOL/L (135-145); TOTAL CARBON DIOXIDE 28.1 MMOL/L (24-32); eGFR 44 ML/MIN
[2019-07-27] MEDS: amiodarone/D5 360MG/200ML BAG 200 ML IV SCH ×3 (03:55→15:58)
[2019-07-27] MEDS: benzocaine/menthol oral lozeng 1 EACH BOX MM PRN (06:12)
--- NOTE | 2019-07-27 06:44 | NUR ---
Problems reprioritized. Patient report given, questions answered & plan of care reviewed with Lisbet HARE.
[2019-07-27] MEDS: docusate sod 100mg capsule PO SCH ×2 (07:13→19:59)
[2019-07-27] MEDS: atorvastatin 10mg tablet PO SCH (07:14)
[2019-07-27] MEDS: aspirin 81mg tab.chew PO SCH (07:14)
[2019-07-27] MEDS: pantoprazole 40mg Tablet.DR PO SCH (07:14)
[2019-07-27] MEDS: HYDROcodone/acetaminophen 10/325mg tab PO PRN ×2 (07:14→17:12)
[2019-07-27] MEDS: multivitamins, therapeutics tablet PO SCH (07:14)
[2019-07-27] MEDS: loratadine 10mg tablet PO SCH (07:14)
--- NOTE | 2019-07-27 07:32 | NUR ---
[facility] I have received report from Melody and had the opportunity to ask questions and assume patient care. 0730- Fentanyl off for sedation vacation. patient blinking eyes, not following commands currently. Addendum: 07/27/19 at 0735 by Lisbet Benítez RN Received report from Barbara jean baptiste 0730 comment, wrong patient. Patient up in chair with 2 assist. Alert oriented, SOB with exertion. BNP this am 9699. Able to pull IS to 500. Currently in afib, rate approx 100. Having v paced beats with HR in the 100's, pacer set for 30.
[2019-07-27] MEDS: cycloSPORINE 0.05% ophthalmic emulsion EACHEYE SCH ×2 (08:00→19:59)
[2019-07-27] MEDS ORDERED: albuterol 2.5 MG/3 ML nebule NEB PRN (09:05)
[2019-07-27] MEDS: benzonatate 100mg capsule PO SCH ×2 (09:05→16:00)
[2019-07-27] MEDS: magnesium 2GM in 50ml NS 50 ML IV PRN (09:48)
--- NOTE | 2019-07-27 10:02 | NUR ---
0900- Reinaldo DAWSON here. reported the v pacing despite rate set for 30, SAMIR attempted a rapid atrial paced rhythm to tire out node to no success. SAMIR states his concern is is that if patient converts to SR her rate will fall low so he wants to keep pacer wires in and active at this time. 0954- Nurse at bedside administering mag replacement, called me to bedside, patient kristen to 39 for a moment. Resumed afib at her regular rate within seconds. Patient denies any discomfort. Continue to monitor.
[2019-07-27] MEDS: magnesium hydroxide 30ml (MOM) UD suspension PO PRN (11:56)
--- NOTE | 2019-07-27 12:19 | NUR ---
CABG Consult: Pt seen by RD for written/verbal CABG ed w/ RD contact information provided. LBM 07/22; JOSE DANIEL d/w RN regarding MoM since PRN. Pt is receiving colace. Pt agrees to vanilla ensure enlive TIDWM given lower PO 25% avg meals post-op not meeting needs. Will continue to monitor. Rec: 1. advance diet per MD to regular 2. vanilla ensure enlive TIDWM; pending MD verification prior to sending on trays 3. routine bowel care 4. weekly wts Addendum: 07/27/19 at [address] Amended: Links added.
[2019-07-27] MEDS: lactose-reduced food (Ensure Enlive) - 237ml bottle PO SCH ×2 (13:00→18:00)
[2019-07-27] MEDS: sodium chloride 0.45% 1,000 ML IV SCH (13:50)
--- NOTE | 2019-07-27 14:04 | NUR ---
1400- lunch accu check 116 without am breakfast coverage, patient consumed approx 26gms of carbs with lunch. held coverage as patient now getting up and ambulating. will recheck accu check at dinner.
--- NOTE | 2019-07-27 15:27 | NUR ---
1445- Dr Bailey rounds, made aware of periodic pacing outside of parameters that are set. Recommended changing out pacer box. 1520- At time of changing out pacer box, patients hear rate 120. No paced beats seen. Changed out box to current settings.
--- NOTE | 2019-07-27 18:18 | NUR ---
1700- dc'd fc. 1800- report off to
--- NOTE | 2019-07-27 19:02 | NUR ---
Problems reprioritized. Patient report given, questions answered & plan of care reviewed with Alexa HARE. Addendum: 07/28/19 at 0645 by Suzanne Shultz RN Problems reprioritized. Patient report given, questions answered & plan of care reviewed with Lisbet HARE. This RN documented incorrect offgoing RN at 1820 on 07/27/19.
--- NOTE | 2019-07-27 20:05 | NUR ---
Patient assisted back to bed from chair, requests not to ambulate at this time.
[2019-07-27] MEDS: insulin glargine (Lantus) pen - multi-dose SQ SCH (22:00)
[2019-07-28] VITALS (24 sets, daily range): BP systolic 119–164; BP diastolic 50–93
[2019-07-28] MEDS: amiodarone/D5 360MG/200ML BAG 200 ML IV SCH ×5 (01:03→15:22)
[2019-07-28] MEDS: HYDROcodone/acetaminophen 10/325mg tab PO PRN (02:33)
[2019-07-28 03:00] LABS: MAGNESIUM 2.6 MG/DL (1.5-2.4); PHOSPHORUS 2.4 MG/DL (2.3-4.5); POTASSIUM 4.9 MMOL/L (3.5-5.1)
--- NOTE | 2019-07-28 05:22 | NUR ---
Pt assisted up oob to bedside cammode.
--- NOTE | 2019-07-28 05:36 | NUR ---
Patient up to BSC voided 225 concentrated urine, post void bladder scan 169 ml. Patient denies discomfort with urination, bladder fullness. Patient assested to chair, requesting to sit up this am.
[2019-07-28 06:22] LABS: BASOPHILS % (AUTO) 0.4 % (0-1); EOSINOPHILS # (AUTO) 0.1 X10'3 (0-0.9); EOSINOPHILS % (AUTO) 1.7 % (0-6); HEMATOCRIT 23.8 % (35.0-45.0); HEMOGLOBIN 8.4 g/dl (12.0-16.0); LYMPHOCYTES # (AUTO) 0.8 X10'3 (1.1-4.8); LYMPHOCYTES % (AUTO) 10.7 % (21-51); MEAN CORPUSCULAR HEMOGLOBIN 36.6 PG (27.0-31.0); MEAN CORPUSCULAR HGB CONC 35.2 g/dL (33.0-36.5); MEAN CORPUSCULAR VOLUME 103.9 FL (78-98); MEAN PLATELET VOLUME 8.8 FL (7.4-10.4); MONOCYTES # (AUTO) 1.2 X10'3 (0-0.9); MONOCYTES % (AUTO) 16.8 % (2-12); NEUTROPHILS # (AUTO) 5.2 X10'3 (1.8-7.7); NEUTROPHILS % (AUTO) 70.4 % (42-75); PLATELET COUNT 68 X10'3 (140-440); RED BLOOD COUNT 2.29 X10'6 (4.20-5.60); RED CELL DISTRIBUTION WIDTH 13.4 % (11.5-14.5); WHITE BLOOD COUNT 7.3 X10'3 (4.5-11.0)
--- NOTE | 2019-07-28 06:25 | NUR ---
Problems reprioritized. Patient report given, questions answered & plan of care reviewed with Lisbet HARE.
--- NOTE | 2019-07-28 06:30 | NUR ---
Patient in room CICU 2008. I have received report from Jing and had the opportunity to ask questions and assume patient care.
[2019-07-28 07:16] LABS: PLATELET ESTIMATE DECREASED; TOTAL CELLS COUNTED 100
[2019-07-28 07:17] LABS: TOXIC VACUOLATION 1+
[2019-07-28] MEDS: pantoprazole 40mg Tablet.DR PO SCH (07:59)
[2019-07-28] MEDS: cycloSPORINE 0.05% ophthalmic emulsion EACHEYE SCH ×2 (07:59→21:02)
[2019-07-28] MEDS: multivitamins, therapeutics tablet PO SCH (07:59)
[2019-07-28] MEDS: benzonatate 100mg capsule PO SCH ×3 (08:00→16:00)
[2019-07-28] MEDS: docusate sod 100mg capsule PO SCH ×2 (08:00→21:02)
[2019-07-28] MEDS: loratadine 10mg tablet PO SCH (08:00)
[2019-07-28] MEDS: lactose-reduced food (Ensure Enlive) - 237ml bottle PO SCH ×3 (08:00→18:00)
[2019-07-28] MEDS: atorvastatin 10mg tablet PO SCH (08:00)
[2019-07-28] MEDS: aspirin 81mg tab.chew PO SCH (08:00)
[2019-07-28 08:05] LABS: ALBUMIN 2.9 G/DL (3.4-5.0); ANION GAP 5 (8-16); BLOOD UREA NITROGEN 32 MG/DL (7-18); BUN/CREATININE RATIO 35.2 (6.6-38.0); CALCIUM 7.9 MG/DL (8.5-10.1); CHLORIDE 96 MMOL/L (99-107); CREATININE 0.91 MG/DL (0.40-0.90); GLUCOSE 114 MG/DL (70-104); SODIUM 128 MMOL/L (135-145); TOTAL CARBON DIOXIDE 27.2 MMOL/L (24-32); eGFR 59 ML/MIN
[2019-07-28] MEDS: ondansetron/PF 4mg/2ml inj IV PRN (11:10)
--- NOTE | 2019-07-28 11:45 | NUR ---
F/u: Pt had large BM relieving constipation today per RN. Receiving suly reese enlives on trays. Addendum: 07/28/19 at [address] Amended: Links added.
[2019-07-28] MEDS ORDERED: diphenhydrAMINE 50 mg/ml inj IV ONE (12:35)
[2019-07-28] MEDS ORDERED: LORazepam 2 mg/ml vial IV PRN (12:35)
--- NOTE | 2019-07-28 16:17 | NUR ---
PT. STATED THAT ALBUTERTOL HAD GIVEN HER SORES IN HER MOUTH. CONSULTING WITH NURSE AND PHYSICIAN Addendum: 07/28/19 at 1617 by Jose Alfredo Chaudhary RT Amended: Links added.
[2019-07-28] MEDS ORDERED: fentaNYL/PF 50MCG/1 ML 2ML syringe ONE ×2 (16:49→18:59)
[2019-07-28] MEDS ORDERED: midazolam 2 mg/2 ml injection ONE ×2 (16:49→19:25)
[2019-07-28] MEDS ORDERED: ceFAZolin 1000mg inj ONE (16:49)
[2019-07-28] MEDS ORDERED: LIDOcaine 1% W/epiNEPHrine 1:100,000 20ml vial ONE ×2 (16:49→18:15)
--- NOTE | 2019-07-28 17:16 | NUR ---
1630 Pt to laborer concrete paving for PPM placement, cardioversion and port a cath removal. Family waiting in waiting room.
[2019-07-28] MEDS ORDERED: verapamil 2.5 mg/ml inj IV ONE ×2 (18:07→19:21)
--- NOTE | 2019-07-28 18:14 | NUR ---
Patient in room CICU 2007. I have received report from Lisbet and had the opportunity to ask questions and assume patient care. Patient remains in medical laboratory technologist at this time for PPM placement, Cardioversion and Port a Cath removal.
[2019-07-28] MEDS ORDERED: amiodarone 50MG/ML inj IV ONE (19:28)
--- NOTE | 2019-07-28 20:15 | NUR ---
Patient in room CICU 2007. I have received report from Instructional Systems Specialist RN and had the opportunity to ask questions.
[2019-07-28] MEDS: insulin glargine (Lantus) pen - multi-dose SQ SCH (21:07)
[2019-07-28] MEDS: amiodarone 200mg tablet PO SCH (21:22)
[2019-07-28] MEDS ORDERED: VANCOMYCIN 1gm/H2O 200ml PB 200 ML IV ONE (22:00)
--- NOTE | 2019-07-28 22:45 | NUR ---
Anastacia change, patient reported faint feeling with repositioning in bed this RN noted patient oxygen sats 88% on room air 1 liter NC applied. Patient oxygen sats up to 95% patient reported feeling better.
[2019-07-29] VITALS (16 sets, daily range): BP systolic 106–163; BP diastolic 33–80
[2019-07-29] MEDS: amiodarone/D5 360MG/200ML BAG 200 ML IV SCH ×2 (01:19→07:23)
[2019-07-29 05:09] LABS: BASOPHILS % (AUTO) 0.2 % (0-1); EOSINOPHILS % (AUTO) 0.2 % (0-6); LYMPHOCYTES # (AUTO) 0.6 X10'3 (1.1-4.8); LYMPHOCYTES % (AUTO) 7.4 % (21-51); MEAN CORPUSCULAR HEMOGLOBIN 37.1 PG (27.0-31.0); MEAN CORPUSCULAR HGB CONC 35.6 g/dL (33.0-36.5); MEAN CORPUSCULAR VOLUME 104.5 FL (78-98); MEAN PLATELET VOLUME 8.5 FL (7.4-10.4); MONOCYTES # (AUTO) 1.3 X10'3 (0-0.9); MONOCYTES % (AUTO) 16.3 % (2-12); NEUTROPHILS % (AUTO) 75.9 % (42-75); PLATELET COUNT 83 X10'3 (140-440); RED BLOOD COUNT 2.09 X10'6 (4.20-5.60); RED CELL DISTRIBUTION WIDTH 13.6 % (11.5-14.5); WHITE BLOOD COUNT 7.9 X10'3 (4.5-11.0)
[2019-07-29 05:25] LABS: ALBUMIN 2.8 G/DL (3.4-5.0); ANION GAP 5 (8-16); BLOOD UREA NITROGEN 34 MG/DL (7-18); BUN/CREATININE RATIO 33.3 (6.6-38.0); CALCIUM 8.2 MG/DL (8.5-10.1); CHLORIDE 97 MMOL/L (99-107); CREATININE 1.02 MG/DL (0.40-0.90); GLUCOSE 111 MG/DL (70-104); MAGNESIUM 2.3 MG/DL (1.5-2.4); PHOSPHORUS 3.2 MG/DL (2.3-4.5); POTASSIUM 5.3 MMOL/L (3.5-5.1); SODIUM 130 MMOL/L (135-145); eGFR 52 ML/MIN
--- NOTE | 2019-07-29 05:30 | NUR ---
Melody HARE and Xavier RN bladder scanned patient with 500ml result, patient assisted up to bedside cammode voided 400.
[2019-07-29 05:38] LABS: HEMATOCRIT 21.9 % (35.0-45.0)
[2019-07-29 05:39] LABS: HEMOGLOBIN 7.8 g/dl (12.0-16.0)
--- NOTE | 2019-07-29 05:57 | NUR ---
This RN called the after hours telephone number for Dr. Crane to advise of patient critical Hct 21.9. no answer, Rn left message for Dr Crane to "Call Jing Lam RN in CICU at [facility] Please as soon as possible."
[2019-07-29] MEDS ORDERED: furosemide 40mg/4ml inj IV ONE (07:00)
[2019-07-29] MEDS: benzonatate 100mg capsule PO SCH ×3 (07:07→16:43)
[2019-07-29] MEDS: atorvastatin 10mg tablet PO SCH (07:08)
[2019-07-29] MEDS: pantoprazole 40mg Tablet.DR PO SCH (07:08)
[2019-07-29] MEDS: HYDROcodone/acetaminophen 10/325mg tab PO PRN ×2 (07:08→15:00)
[2019-07-29] MEDS: carvedilol 6.25mg tablet PO SCH ×2 (07:09→20:20)
[2019-07-29] MEDS: docusate sod 100mg capsule PO SCH ×2 (07:09→20:19)
[2019-07-29] MEDS: multivitamins, therapeutics tablet PO SCH (07:09)
[2019-07-29] MEDS: aspirin 81mg tab.chew PO SCH (07:09)
[2019-07-29] MEDS: loratadine 10mg tablet PO SCH (07:09)
[2019-07-29] MEDS: amiodarone 200mg tablet PO SCH ×2 (07:09→20:19)
[2019-07-29] MEDS: lactose-reduced food (Ensure Enlive) - 237ml bottle PO SCH ×3 (07:34→18:00)
[2019-07-29] MEDS ORDERED: magnesium 2GM in 50ml NS 50 ML IV PRN (07:45)
[2019-07-29] MEDS ORDERED: potassium Cl 20mEq/100mL bag 100 ML IV PRN (07:45)
[2019-07-29] MEDS ORDERED: magnesium 4gm in 100ml NS 100 ML IV PRN (07:45)
[2019-07-29] MEDS ORDERED: potassium Cl 20 mEq SR tablet PO PRN (07:45)
[2019-07-29] MEDS: magnesium Cl slow-release 64mg tablet PO SCH ×2 (08:00→20:22)
[2019-07-29] MEDS: potassium Cl 20 mEq SR tablet PO SCH ×2 (08:00→20:00)
[2019-07-29] MEDS: cycloSPORINE 0.05% ophthalmic emulsion EACHEYE SCH ×2 (09:24→20:24)
[2019-07-29] MEDS: cephalexin 250mg capsule PO SCH ×3 (09:24→20:23)
[2019-07-29] MEDS: ondansetron/PF 4mg/2ml inj IV PRN (11:37)
--- NOTE | 2019-07-29 12:00 | NUR ---
Received report from ANANYA Bland, CICU nurse. Patient is recovering from open heart surgery. Will await patient arrival from CICU.
--- NOTE | 2019-07-29 13:05 | NUR ---
Patient arrives to the ACCE unit from the CICU with ANANYA Bland. Patient comes by wheelchair and ambulates to the bed. Vitals are stable and patient is alert and oriented x3. Patient is whispering and ANANYA Bland verfies that the patient has been this way due to intubation during and after surgery. Assessment completed and assumed care of patient.
--- NOTE | 2019-07-29 13:16 | NUR ---
Report called to receiving nurse. Transferred via wheelchair. Belongings with patientn in new room, 315 on ACCE unit. Special Issues communicated to receiving nurse.
--- NOTE | 2019-07-29 18:00 | NUR ---
Patient in room MED 315. I have received report from ANANYA Dyer and had the opportunity to ask questions and assume patient care.
--- NOTE | 2019-07-29 18:05 | NUR ---
Problems reprioritized. Patient report given, questions answered & plan of care reviewed with ANANYA Baron.
[2019-07-29] MEDS: lactobacillus rhamnosus 10,000 MMU CELLS/CAPSULE PO SCH (20:23)
--- NOTE | 2019-07-29 22:24 | NUR ---
temp 92.2 Oral. Patient states she did drink some ice water prior to me coming in. will continue to monitor and reassess. Addendum: 07/29/19 at 2230 by Loraine Pink RN Amended: Links added.
[2019-07-30] VITALS (7 sets, daily range): BP systolic 92–158; BP diastolic 23–121
[2019-07-30] MEDS: benzonatate 100mg capsule PO SCH ×3 (00:39→15:10)
[2019-07-30] MEDS: cephalexin 250mg capsule PO SCH ×4 (02:43→22:08)
[2019-07-30] MEDS: ondansetron/PF 4mg/2ml inj IV PRN (02:49)
--- NOTE | 2019-07-30 04:36 | NUR ---
Paged RT room 315 Leatha Martinez. SOB, Coarse breath sounds. Eval please. ANANYA Baron ext [phone]
--- NOTE | 2019-07-30 05:03 | NUR ---
Patient was having increased anxiety related to her breathing. Sat with patient to help with anxiety, breathing, flutter, and deep breathing techniques. Paged RT for second opinion and they recommended "pulmonary toilet" coughing, deep breathing, Flutter and IS. Will continue to monitor.
--- NOTE | 2019-07-30 06:27 | NUR ---
Problems reprioritized. Patient report given, questions answered & plan of care reviewed with ANANYA Montemayor.
[2019-07-30 06:37] LABS: BASOPHILS % (AUTO) 0.2 % (0-1); EOSINOPHILS % (AUTO) 0.5 % (0-6); HEMATOCRIT 22.6 % (35.0-45.0); HEMOGLOBIN 7.9 g/dl (12.0-16.0); LYMPHOCYTES # (AUTO) 0.9 X10'3 (1.1-4.8); LYMPHOCYTES % (AUTO) 11.6 % (21-51); MEAN CORPUSCULAR HEMOGLOBIN 36.9 PG (27.0-31.0); MEAN CORPUSCULAR VOLUME 105.5 FL (78-98); MEAN PLATELET VOLUME 8.1 FL (7.4-10.4); MONOCYTES # (AUTO) 1.2 X10'3 (0-0.9); MONOCYTES % (AUTO) 16.5 % (2-12); NEUTROPHILS # (AUTO) 5.3 X10'3 (1.8-7.7); NEUTROPHILS % (AUTO) 71.2 % (42-75); PLATELET COUNT 88 X10'3 (140-440); RED BLOOD COUNT 2.14 X10'6 (4.20-5.60); WHITE BLOOD COUNT 7.5 X10'3 (4.5-11.0)
--- NOTE | 2019-07-30 06:46 | NUR ---
Patient in room MED 315. I have received report from ANANYA Diallo and had the opportunity to ask questions and assume patient care.
[2019-07-30 06:54] LABS: ALBUMIN 3.1 G/DL (3.4-5.0); ANION GAP 9 (8-16); BLOOD UREA NITROGEN 50 MG/DL (7-18); BUN/CREATININE RATIO 31.3 (6.6-38.0); CALCIUM 8.8 MG/DL (8.5-10.1); CHLORIDE 93 MMOL/L (99-107); GLUCOSE 99 MG/DL (70-104); POTASSIUM 5.9 MMOL/L (3.5-5.1); SODIUM 125 MMOL/L (135-145); TOTAL CARBON DIOXIDE 23.5 MMOL/L (24-32); eGFR 31 ML/MIN
[2019-07-30] MEDS ORDERED: furosemide 20 MG/2 ML vial IV ONE ×2 (07:25→09:20)
[2019-07-30 07:52] LABS: TOTAL CELLS COUNTED 100
[2019-07-30 07:56] LABS: ANISOCYTOSIS 1+; PLATELET ESTIMATE DECREASED
[2019-07-30 07:57] LABS: POLYCHROMASIA FEW
[2019-07-30] MEDS: potassium Cl 20 mEq SR tablet PO SCH ×2 (08:00→20:00)
[2019-07-30] MEDS: magnesium Cl slow-release 64mg tablet PO SCH ×2 (08:00→20:00)
[2019-07-30] MEDS: cycloSPORINE 0.05% ophthalmic emulsion EACHEYE SCH ×2 (08:00→22:10)
[2019-07-30] MEDS: pantoprazole 40mg Tablet.DR PO SCH (08:07)
[2019-07-30] MEDS: docusate sod 100mg capsule PO SCH ×2 (08:10→20:00)
[2019-07-30] MEDS: carvedilol 6.25mg tablet PO SCH ×2 (08:10→22:08)
[2019-07-30] MEDS: aspirin 81mg tab.chew PO SCH (08:10)
[2019-07-30] MEDS: loratadine 10mg tablet PO SCH (08:11)
[2019-07-30] MEDS: amiodarone 200mg tablet PO SCH ×2 (08:11→22:08)
[2019-07-30] MEDS: lactobacillus rhamnosus 10,000 MMU CELLS/CAPSULE PO SCH ×2 (08:11→22:08)
[2019-07-30] MEDS: atorvastatin 10mg tablet PO SCH (08:11)
[2019-07-30] MEDS: multivitamins, therapeutics tablet PO SCH (08:11)
[2019-07-30] MEDS: lactose-reduced food (Ensure Enlive) - 237ml bottle PO SCH ×3 (08:14→18:00)
[2019-07-30] MEDS: guaiFENesin ER 600mg tablet PO SCH ×2 (08:23→22:08)
--- NOTE | 2019-07-30 11:00 | NUR ---
Pt had thoracentesis in room,750 cc right side,400 cc left side,pt estefany procedure well ,except BP right leg=79/42,map=53 rechecked on right arm BP=92/28,map=47.Pt denies dizziness,cont av paced at 60. sao2 on3l/nc=98%,Reinaldo centeno contacted with above information,no new orders taken
--- NOTE | 2019-07-30 14:18 | NUR ---
Reassessment: Pt PO remains poor 25% avg this admit and only drank first two ensures. Pt s/p thoracentesis for pleural effusions today. Pending MD note for amount of fluid drawn. Pt seen by RD and reports still not feeling well, disliking ensures, and declines ensure puddings. Pt did report being able to breath easier following thoracentesis. Pt requests foods that are easier on her throat for dinner tonight: jello, chicken broth, and crackers. Dietary notified. M 07/28 receiving colace. Na continues to decrease though noted -500ml fluid balance prior to thoracentesis and did receive one time lasix dosage. Will continue to monitor. Rec: 1. advance diet per MD to regular 2. honor pt food preferences 3. routine bowel care 4. weekly wts Addendum: 07/30/19 at [address] Amended: Links added.
[2019-07-30] MEDS: acetaminophen 325mg tablet PO PRN (15:10)
--- NOTE | 2019-07-30 18:15 | NUR ---
Patient in room MED 315. I have received report from ANANYA Montemayor and had the opportunity to ask questions and assume patient care.
[2019-07-31 02:00] VITALS: BP 121/34
[2019-07-31] MEDS: cephalexin 250mg capsule PO SCH ×4 (02:41→20:14)
--- NOTE | 2019-07-31 06:31 | NUR ---
Patient in room MED 315. I have received report from ANANYA Baron and had the opportunity to ask questions and assume patient care.
--- NOTE | 2019-07-31 06:44 | NUR ---
Problems reprioritized. Patient report given, questions answered & plan of care reviewed with ANANYA Montemayor.
[2019-07-31 07:00] VITALS: BP 108/52
[2019-07-31] MEDS: lactose-reduced food (Ensure Enlive) - 237ml bottle PO SCH ×3 (08:00→18:00)
[2019-07-31] MEDS: magnesium Cl slow-release 64mg tablet PO SCH ×2 (08:00→20:14)
[2019-07-31] MEDS: potassium Cl 20 mEq SR tablet PO SCH ×2 (08:00→20:00)
[2019-07-31] MEDS: cycloSPORINE 0.05% ophthalmic emulsion EACHEYE SCH ×2 (08:00→20:15)
[2019-07-31] MEDS: aspirin 81mg tab.chew PO SCH (08:00)
[2019-07-31] MEDS: benzonatate 100mg capsule PO SCH ×3 (08:00→16:00)
[2019-07-31] MEDS: amiodarone 200mg tablet PO SCH (09:11)
[2019-07-31] MEDS: lactobacillus rhamnosus 10,000 MMU CELLS/CAPSULE PO SCH ×2 (09:11→20:14)
[2019-07-31] MEDS: atorvastatin 10mg tablet PO SCH (09:12)
[2019-07-31] MEDS: guaiFENesin ER 600mg tablet PO SCH ×2 (09:12→20:14)
[2019-07-31] MEDS: docusate sod 100mg capsule PO SCH ×2 (09:12→20:14)
[2019-07-31] MEDS: multivitamins, therapeutics tablet PO SCH (09:12)
[2019-07-31] MEDS: loratadine 10mg tablet PO SCH (09:12)
[2019-07-31 09:13] LABS: BASOPHILS % (AUTO) 0.3 % (0-1); EOSINOPHILS # (AUTO) 0.1 X10'3 (0-0.9); EOSINOPHILS % (AUTO) 1.3 % (0-6); HEMATOCRIT 22.5 % (35.0-45.0); HEMOGLOBIN 7.8 g/dl (12.0-16.0); LYMPHOCYTES # (AUTO) 0.7 X10'3 (1.1-4.8); LYMPHOCYTES % (AUTO) 11.8 % (21-51); MEAN CORPUSCULAR HEMOGLOBIN 36.1 PG (27.0-31.0); MEAN CORPUSCULAR HGB CONC 34.4 g/dL (33.0-36.5); MEAN CORPUSCULAR VOLUME 104.8 FL (78-98); MEAN PLATELET VOLUME 7.6 FL (7.4-10.4); MONOCYTES # (AUTO) 0.6 X10'3 (0-0.9); MONOCYTES % (AUTO) 10.2 % (2-12); NEUTROPHILS # (AUTO) 4.7 X10'3 (1.8-7.7); NEUTROPHILS % (AUTO) 76.4 % (42-75); PLATELET COUNT 74 X10'3 (140-440); RED BLOOD COUNT 2.15 X10'6 (4.20-5.60); RED CELL DISTRIBUTION WIDTH 13.9 % (11.5-14.5); WHITE BLOOD COUNT 6.2 X10'3 (4.5-11.0)
[2019-07-31] MEDS: pantoprazole 40mg Tablet.DR PO SCH (09:18)
[2019-07-31] MEDS: carvedilol 6.25mg tablet PO SCH ×2 (09:22→20:14)
[2019-07-31 09:43] LABS: ALBUMIN 2.9 G/DL (3.4-5.0); ANION GAP 7 (8-16); BLOOD UREA NITROGEN 65 MG/DL (7-18); BUN/CREATININE RATIO 28.6 (6.6-38.0); CALCIUM 8.2 MG/DL (8.5-10.1); CHLORIDE 93 MMOL/L (99-107); CREATININE 2.27 MG/DL (0.40-0.90); GLUCOSE 106 MG/DL (70-104); MAGNESIUM 2.4 MG/DL (1.5-2.4); POTASSIUM 5.3 MMOL/L (3.5-5.1); SODIUM 126 MMOL/L (135-145); TOTAL CARBON DIOXIDE 25.7 MMOL/L (24-32); eGFR 21 ML/MIN
[2019-07-31 11:00] VITALS: BP 110/35
[2019-07-31] MEDS: magnesium hydroxide 30ml (MOM) UD suspension PO PRN (11:05)
[2019-07-31 15:00] VITALS: BP 108/48
[2019-07-31 18:00] VITALS: BP 112/50
[2019-07-31 22:00] VITALS: BP 99/35
[2019-08-01] VITALS (10 sets, daily range): BP systolic 107–153; BP diastolic 32–73
[2019-08-01] MEDS: acetaminophen 325mg tablet PO PRN (00:03)
[2019-08-01] MEDS: cephalexin 250mg capsule PO SCH ×4 (02:39→20:44)
[2019-08-01 03:30] LABS: BASOPHILS % (AUTO) 0.4 % (0-1); EOSINOPHILS # (AUTO) 0.1 X10'3 (0-0.9); HEMATOCRIT 22.7 % (35.0-45.0); HEMOGLOBIN 7.7 g/dl (12.0-16.0); LYMPHOCYTES # (AUTO) 0.8 X10'3 (1.1-4.8); LYMPHOCYTES % (AUTO) 11.7 % (21-51); MEAN CORPUSCULAR HEMOGLOBIN 36.3 PG (27.0-31.0); MEAN CORPUSCULAR VOLUME 106.9 FL (78-98); MEAN PLATELET VOLUME 8.4 FL (7.4-10.4); MONOCYTES # (AUTO) 0.9 X10'3 (0-0.9); MONOCYTES % (AUTO) 12.7 % (2-12); NEUTROPHILS # (AUTO) 5.4 X10'3 (1.8-7.7); NEUTROPHILS % (AUTO) 74.2 % (42-75); PLATELET COUNT 67 X10'3 (140-440); RED BLOOD COUNT 2.12 X10'6 (4.20-5.60); RED CELL DISTRIBUTION WIDTH 14.2 % (11.5-14.5); WHITE BLOOD COUNT 7.2 X10'3 (4.5-11.0)
[2019-08-01 03:45] LABS: ALBUMIN 2.9 G/DL (3.4-5.0); ANION GAP 5 (8-16); ASPARTATE AMINO TRANSFERASE 78 U/L (10-37); BILIRUBIN,TOTAL 1.6 MG/DL (0.1-1.0); BLOOD UREA NITROGEN 73 MG/DL (7-18); BUN/CREATININE RATIO 28.6 (6.6-38.0); CALCIUM 8.1 MG/DL (8.5-10.1); CHLORIDE 92 MMOL/L (99-107); CREATININE 2.55 MG/DL (0.40-0.90); GLUCOSE 84 MG/DL (70-104); POTASSIUM 5.5 MMOL/L (3.5-5.1); SODIUM 124 MMOL/L (135-145); TOTAL CARBON DIOXIDE 26.6 MMOL/L (24-32); TOTAL PROTEIN 5.7 G/DL (6.4-8.2); eGFR 18 ML/MIN
[2019-08-01 03:46] LABS: ALANINE AMINOTRANSFERASE 78 U/L (12-78); ALKALINE PHOSPHATASE 157 IU/L (46-116)
[2019-08-01 04:13] LABS: MAGNESIUM 2.8 MG/DL (1.5-2.4)
--- NOTE | 2019-08-01 06:30 | NUR ---
Problems reprioritized. Patient report given, questions answered & plan of care reviewed with Pat RN.
[2019-08-01] MEDS: pantoprazole 40mg Tablet.DR PO SCH (07:30)
[2019-08-01] MEDS: carvedilol 6.25mg tablet PO SCH ×2 (08:00→20:00)
[2019-08-01] MEDS: lactobacillus rhamnosus 10,000 MMU CELLS/CAPSULE PO SCH ×2 (08:52→20:44)
[2019-08-01] MEDS: loratadine 10mg tablet PO SCH (08:52)
[2019-08-01] MEDS: atorvastatin 10mg tablet PO SCH (08:52)
[2019-08-01] MEDS: aspirin 81mg tab.chew PO SCH (08:52)
[2019-08-01] MEDS: multivitamins, therapeutics tablet PO SCH (08:52)
[2019-08-01] MEDS: guaiFENesin ER 600mg tablet PO SCH ×2 (08:53→20:44)
[2019-08-01] MEDS: benzonatate 100mg capsule PO SCH ×3 (08:53→16:00)
[2019-08-01] MEDS: docusate sod 100mg capsule PO SCH ×2 (08:53→20:00)
[2019-08-01] MEDS: lactose-reduced food (Ensure Enlive) - 237ml bottle PO SCH ×3 (08:54→18:00)
[2019-08-01] MEDS: iron polysaccharide complex 150mg capsule PO SCH ×2 (10:00→20:44)
--- NOTE | 2019-08-01 13:41 | NUR ---
ONE UNIT OF P.R.B.C INFUSING; NO SIGNS AND SYMPTOMS OF REACTION NOTED. WILL CONTINUE TO MONITOR.HOB UP CALL LIGHT IN REACH, AND PATIENTS AT BEDSIDE. Addendum: 08/01/19 at 1344 by Ana Sanon RN Amended: Links added.
[2019-08-01] MEDS: cycloSPORINE 0.05% ophthalmic emulsion EACHEYE SCH ×2 (14:23→20:54)
--- NOTE | 2019-08-01 16:00 | NUR ---
TRANSFUSED ONE UNIT OF P.R.B.C.; ALTHOUGH, PATIENT'S BREATH SOUNDS WITH CRACKLES NOTED PRIOR TO TRANSFUSION, NO INCREASE CRACKLES PRESENT.O2 SAT 95 ON 3L/NC. PATIENT TOLERATED TRANSFUSION WELL, NO SIGNS OR SYMPTOMS OF REACTION NOTED. Addendum: 08/01/19 at 1709 by Ana Sanon RN Amended: Links added.
--- NOTE | 2019-08-01 19:02 | NUR ---
Patient in room MED 315. I have received report from Sherry Rn and had the opportunity to ask questions and assume patient care.
--- NOTE | 2019-08-01 21:44 | NUR ---
Paged Dr Clement.Kaitlynn [place] Room 313, here for CHF exacerbation, due to go home tomorrow. Pt forgot that she took Seroquel 100mg before bed. Updated Med REC just needs to be reviewed by you. Ext [phone] Tommy Stover
[2019-08-02 02:00] VITALS: BP 140/44
[2019-08-02] MEDS: cephalexin 250mg capsule PO SCH ×4 (03:26→19:34)
[2019-08-02 06:27] LABS: BASOPHILS # (AUTO) 0.1 X10'3 (0-0.2); EOSINOPHILS # (AUTO) 0.1 X10'3 (0-0.9); EOSINOPHILS % (AUTO) 1.2 % (0-6); HEMATOCRIT 28.2 % (35.0-45.0); HEMOGLOBIN 9.8 g/dl (12.0-16.0); LYMPHOCYTES # (AUTO) 0.9 X10'3 (1.1-4.8); LYMPHOCYTES % (AUTO) 9.4 % (21-51); MEAN CORPUSCULAR HEMOGLOBIN 35.8 PG (27.0-31.0); MEAN CORPUSCULAR HGB CONC 34.7 g/dL (33.0-36.5); MEAN CORPUSCULAR VOLUME 103.2 FL (78-98); MEAN PLATELET VOLUME 7.8 FL (7.4-10.4); MONOCYTES # (AUTO) 1.3 X10'3 (0-0.9); MONOCYTES % (AUTO) 13.5 % (2-12); NEUTROPHILS # (AUTO) 7.4 X10'3 (1.8-7.7); NEUTROPHILS % (AUTO) 74.9 % (42-75); PLATELET COUNT 71 X10'3 (140-440); RED BLOOD COUNT 2.73 X10'6 (4.20-5.60); RED CELL DISTRIBUTION WIDTH 17.8 % (11.5-14.5); WHITE BLOOD COUNT 9.9 X10'3 (4.5-11.0)
--- NOTE | 2019-08-02 06:27 | NUR ---
Patient in room MED 315. I have received report from Tommy HARE and had the opportunity to ask questions and assume patient care.
[2019-08-02 06:30] VITALS: BP 133/40
--- NOTE | 2019-08-02 06:35 | NUR ---
Problems reprioritized. Patient report given, questions answered & plan of care reviewed with Anne Marie HARE .
[2019-08-02 06:36] LABS: ANION GAP 11 (8-16); BLOOD UREA NITROGEN 78 MG/DL (7-18); BUN/CREATININE RATIO 34.5 (6.6-38.0); CALCIUM 8.3 MG/DL (8.5-10.1); CHLORIDE 94 MMOL/L (99-107); CREATININE 2.26 MG/DL (0.40-0.90); GLUCOSE 87 MG/DL (70-104); MAGNESIUM 2.9 MG/DL (1.5-2.4); POTASSIUM 5.3 MMOL/L (3.5-5.1); SODIUM 127 MMOL/L (135-145); TOTAL CARBON DIOXIDE 21.9 MMOL/L (24-32); eGFR 21 ML/MIN
[2019-08-02] MEDS: loratadine 10mg tablet PO SCH (07:26)
[2019-08-02] MEDS: pantoprazole 40mg Tablet.DR PO SCH (07:26)
[2019-08-02] MEDS: lactobacillus rhamnosus 10,000 MMU CELLS/CAPSULE PO SCH ×2 (07:26→19:34)
[2019-08-02] MEDS: iron polysaccharide complex 150mg capsule PO SCH ×2 (07:26→19:34)
[2019-08-02] MEDS: amiodarone 200mg tablet PO SCH (07:26)
[2019-08-02] MEDS: atorvastatin 10mg tablet PO SCH (07:27)
[2019-08-02] MEDS: multivitamins, therapeutics tablet PO SCH (07:27)
[2019-08-02] MEDS: guaiFENesin ER 600mg tablet PO SCH ×2 (07:27→19:34)
[2019-08-02] MEDS: aspirin 81mg tab.chew PO SCH (07:27)
[2019-08-02] MEDS: docusate sod 100mg capsule PO SCH ×2 (07:33→20:00)
[2019-08-02] MEDS: carvedilol 6.25mg tablet PO SCH ×3 (07:34→19:34)
[2019-08-02] MEDS: benzonatate 100mg capsule PO SCH ×3 (07:35→16:00)
[2019-08-02] MEDS: lactose-reduced food (Ensure Enlive) - 237ml bottle PO SCH ×3 (07:35→18:25)
[2019-08-02] MEDS: acetaminophen 325mg tablet PO PRN (07:37)
--- NOTE | 2019-08-02 09:30 | NUR ---
Made Dr. Crane aware of holding Coreg r/t low HR, requested medtronic come by.
[2019-08-02] MEDS ORDERED: furosemide 40mg/4ml inj IV ONE (09:35)
--- NOTE | 2019-08-02 10:28 | NUR ---
Lee jay corrected pacemaker to 60 bpm, Dr. Crane suggested to have Coreg be given once HR is resolved to 60 bpm.
[2019-08-02 11:30] VITALS: BP 126/47
--- NOTE | 2019-08-02 12:38 | NUR ---
Reassessment: Pt slowly improving per MD note. Pt continues averaging 25% PO intake of meals however up to 75-100% PO intake of Ensure Enlive TID closely meeting nutrient needs for geriatric age. [facility] 08/02. Will continue to follow closely. Rec: 1. advance diet per MD to regular 2. honor pt food preferences; encourage PO intake of meals/ONS 3. Ensure Enlive TID 4. routine bowel care 5. weekly wts Addendum: 08/02/19 at [address] Amended: Links added.
[2019-08-02] MEDS: cycloSPORINE 0.05% ophthalmic emulsion EACHEYE SCH ×2 (13:54→19:35)
[2019-08-02 15:00] VITALS: BP 107/41
[2019-08-02 18:00] VITALS: BP 117/46
--- NOTE | 2019-08-02 18:10 | NUR ---
Problems reprioritized. Patient report given, questions answered & plan of care reviewed with Anni HARE. Addendum: 08/02/19 at 1832 by Anne Marie Clark RN CORRECTION--Reported off to IVY HARE not Anni HARE.
[2019-08-02 22:00] VITALS: BP 100/41
--- NOTE | 2019-08-02 22:11 | NUR ---
Problems reprioritized. Patient report given, questions answered & plan of care reviewed with Anne Marie HARE.
[2019-08-03] VITALS (7 sets, daily range): BP systolic 100–112; BP diastolic 38–57
[2019-08-03] MEDS: cephalexin 250mg capsule PO SCH ×4 (02:24→21:00)
[2019-08-03 06:09] LABS: ALBUMIN 2.9 G/DL (3.4-5.0); ANION GAP 7 (8-16); BLOOD UREA NITROGEN 68 MG/DL (7-18); CALCIUM 8.2 MG/DL (8.5-10.1); CHLORIDE 96 MMOL/L (99-107); CREATININE 1.66 MG/DL (0.40-0.90); GLUCOSE 94 MG/DL (70-104); POTASSIUM 4.8 MMOL/L (3.5-5.1); SODIUM 129 MMOL/L (135-145); eGFR 30 ML/MIN
--- NOTE | 2019-08-03 06:10 | NUR ---
Patient in room MED 315. I have received report from Tommy HARE and had the opportunity to ask questions and assume patient care.
--- NOTE | 2019-08-03 06:18 | NUR ---
Problems reprioritized. Patient report given, questions answered & plan of care reviewed with Anne Marie Stover.
[2019-08-03 06:22] LABS: BASOPHILS % (AUTO) 0.3 % (0-1); EOSINOPHILS # (AUTO) 0.1 X10'3 (0-0.9); EOSINOPHILS % (AUTO) 1.8 % (0-6); HEMATOCRIT 25.4 % (35.0-45.0); HEMOGLOBIN 9.1 g/dl (12.0-16.0); LYMPHOCYTES # (AUTO) 0.6 X10'3 (1.1-4.8); LYMPHOCYTES % (AUTO) 9.2 % (21-51); MEAN CORPUSCULAR HEMOGLOBIN 36.5 PG (27.0-31.0); MEAN CORPUSCULAR HGB CONC 35.7 g/dL (33.0-36.5); MEAN CORPUSCULAR VOLUME 102.1 FL (78-98); MEAN PLATELET VOLUME 7.9 FL (7.4-10.4); MONOCYTES # (AUTO) 0.8 X10'3 (0-0.9); MONOCYTES % (AUTO) 12.4 % (2-12); NEUTROPHILS # (AUTO) 5.1 X10'3 (1.8-7.7); NEUTROPHILS % (AUTO) 76.3 % (42-75); PLATELET COUNT 58 X10'3 (140-440); RED BLOOD COUNT 2.49 X10'6 (4.20-5.60); RED CELL DISTRIBUTION WIDTH 17.2 % (11.5-14.5); WHITE BLOOD COUNT 6.7 X10'3 (4.5-11.0)
[2019-08-03] MEDS: pantoprazole 40mg Tablet.DR PO SCH (07:01)
[2019-08-03] MEDS: cycloSPORINE 0.05% ophthalmic emulsion EACHEYE SCH ×2 (07:01→20:00)
[2019-08-03] MEDS: guaiFENesin ER 600mg tablet PO SCH ×2 (07:25→21:01)
[2019-08-03] MEDS: atorvastatin 10mg tablet PO SCH (07:25)
[2019-08-03] MEDS: lactobacillus rhamnosus 10,000 MMU CELLS/CAPSULE PO SCH ×2 (07:25→21:01)
[2019-08-03] MEDS: amiodarone 200mg tablet PO SCH (07:25)
[2019-08-03] MEDS: multivitamins, therapeutics tablet PO SCH (07:25)
[2019-08-03] MEDS: iron polysaccharide complex 150mg capsule PO SCH ×2 (07:25→21:01)
[2019-08-03] MEDS: carvedilol 6.25mg tablet PO SCH ×2 (07:25→20:00)
[2019-08-03] MEDS: loratadine 10mg tablet PO SCH (07:26)
[2019-08-03] MEDS: aspirin 81mg tab.chew PO SCH (07:26)
[2019-08-03] MEDS: docusate sod 100mg capsule PO SCH ×2 (07:26→20:00)
[2019-08-03] MEDS: benzonatate 100mg capsule PO SCH ×4 (07:27→23:35)
[2019-08-03] MEDS: lactose-reduced food (Ensure Enlive) - 237ml bottle PO SCH ×3 (07:28→18:45)
--- NOTE | 2019-08-03 13:05 | NUR ---
Paged case management per family request.
[2019-08-03] MEDS ORDERED: furosemide 20 MG/2 ML vial IV ONE (14:00)
[2019-08-03 16:32] LABS: OCCULT BLOOD STOOL NEGATIVE (Neg)
--- NOTE | 2019-08-03 18:16 | NUR ---
Patient in room MED 315. I have received report from Anne Marie Stover and had the opportunity to ask questions and assume patient care. Bedside report completed. no distress noted.
--- NOTE | 2019-08-03 18:17 | NUR ---
Problems reprioritized. Patient report given, questions answered & plan of care reviewed with Nae HARE.
[2019-08-04 01:46] VITALS: BP 121/45
[2019-08-04] MEDS: cephalexin 250mg capsule PO SCH ×2 (01:47→07:44)
[2019-08-04] MEDS: acetaminophen 325mg tablet PO PRN (01:48)
[2019-08-04 05:35] LABS: BASOPHILS % (AUTO) 0.6 % (0-1); EOSINOPHILS # (AUTO) 0.1 X10'3 (0-0.9); EOSINOPHILS % (AUTO) 1.8 % (0-6); HEMATOCRIT 26.3 % (35.0-45.0); HEMOGLOBIN 9.2 g/dl (12.0-16.0); LYMPHOCYTES # (AUTO) 0.7 X10'3 (1.1-4.8); LYMPHOCYTES % (AUTO) 10.6 % (21-51); MEAN CORPUSCULAR HEMOGLOBIN 36.3 PG (27.0-31.0); MEAN CORPUSCULAR VOLUME 103.7 FL (78-98); MEAN PLATELET VOLUME 7.7 FL (7.4-10.4); MONOCYTES # (AUTO) 0.7 X10'3 (0-0.9); MONOCYTES % (AUTO) 9.6 % (2-12); NEUTROPHILS # (AUTO) 5.2 X10'3 (1.8-7.7); NEUTROPHILS % (AUTO) 77.4 % (42-75); PLATELET COUNT 58 X10'3 (140-440); RED BLOOD COUNT 2.54 X10'6 (4.20-5.60); RED CELL DISTRIBUTION WIDTH 18.7 % (11.5-14.5); WHITE BLOOD COUNT 6.8 X10'3 (4.5-11.0)
[2019-08-04 05:40] LABS: ALBUMIN 2.9 G/DL (3.4-5.0); ANION GAP 4 (8-16); BLOOD UREA NITROGEN 60 MG/DL (7-18); BUN/CREATININE RATIO 43.2 (6.6-38.0); CALCIUM 8.6 MG/DL (8.5-10.1); CHLORIDE 99 MMOL/L (99-107); CREATININE 1.39 MG/DL (0.40-0.90); GLUCOSE 107 MG/DL (70-104); POTASSIUM 4.8 MMOL/L (3.5-5.1); SODIUM 132 MMOL/L (135-145); TOTAL CARBON DIOXIDE 29.5 MMOL/L (24-32); eGFR 36 ML/MIN
[2019-08-04 06:00] VITALS: BP 105/49
--- NOTE | 2019-08-04 06:15 | NUR ---
Problems reprioritized. Patient report given, questions answered & plan of care reviewed with Mahesh HARE, bedside report completed. no distress noted. .
[2019-08-04] MEDS: loratadine 10mg tablet PO SCH (07:44)
[2019-08-04] MEDS: amiodarone 200mg tablet PO SCH (07:44)
[2019-08-04] MEDS: carvedilol 6.25mg tablet PO SCH (07:44)
[2019-08-04] MEDS: lactobacillus rhamnosus 10,000 MMU CELLS/CAPSULE PO SCH (07:44)
[2019-08-04] MEDS: pantoprazole 40mg Tablet.DR PO SCH (07:44)
[2019-08-04] MEDS: atorvastatin 10mg tablet PO SCH (07:44)
[2019-08-04] MEDS: aspirin 81mg tab.chew PO SCH (07:44)
[2019-08-04] MEDS: iron polysaccharide complex 150mg capsule PO SCH (07:44)
[2019-08-04] MEDS: multivitamins, therapeutics tablet PO SCH (07:44)
[2019-08-04] MEDS: guaiFENesin ER 600mg tablet PO SCH (07:44)
[2019-08-04] MEDS: cycloSPORINE 0.05% ophthalmic emulsion EACHEYE SCH (07:44)
[2019-08-04] MEDS: docusate sod 100mg capsule PO SCH (07:45)
[2019-08-04] MEDS: lactose-reduced food (Ensure Enlive) - 237ml bottle PO SCH (08:00)
[2019-08-04 08:10] LABS: ANISOCYTOSIS 2+; PLATELET ESTIMATE DECREASED
[2019-08-04 08:12] LABS: MICROCYTOSIS 1+
[2019-08-04] MEDS ORDERED: ATOR10TA PO (08:55)
[2019-08-04] MEDS ORDERED: CARV6.253 PO (08:55)
[2019-08-04] MEDS ORDERED: GUAI600T45 PO (08:55)
[2019-08-04] MEDS ORDERED: DOCU100C40 PO (08:55)
[2019-08-04] MEDS ORDERED: ASPI-1265 PO (08:55)
[2019-08-04] MEDS ORDERED: LACT-237 PO (08:55)
[2019-08-04] MEDS ORDERED: IRON150C13 PO (08:55)
[2019-08-04] MEDS ORDERED: AMIO200T61 PO (08:55)
--- NOTE | 2019-08-04 10:32 | NUR ---
Pt's PIV removed without complications. Medications were transferred by the computer, I called and confirmed.
== END 2019-08-04 10:50 | disposition home health service (06) | DRG 219 ==
LOC: PAS IN 05:32 → EDSTATUS 08:30 → CICU 2S 15:14 → MED 3N 07-29 13:03
PROVIDERS: ADMIT Thoracic Surgery (Cardiothoracic Vascular Surgery); ATTEND Thoracic Surgery (Cardiothoracic Vascular Surgery)
PROC: 02QG0ZZ Repair Mitral Valve, Open Approach (ICD-10-PCS; 2019-07-23)
PROC: 02RF0JZ Replacement of Aortic Valve with Synthetic Substitute, Open Approach (ICD-10-PCS; 2019-07-23)
PROC: 06BY4ZZ Excision of Lower Vein, Percutaneous Endoscopic Approach (ICD-10-PCS; 2019-07-23)
PROC: 02L70ZK Occlusion of Left Atrial Appendage, Open Approach (ICD-10-PCS; 2019-07-23)
PROC: 5A1221Z Performance of Cardiac Output, Continuous (ICD-10-PCS; 2019-07-23)
PROC: B246ZZ4 Ultrasonography of Right and Left Heart, Transesophageal (ICD-10-PCS; 2019-07-23)
PROC: 02R Heart and Great Vessels, Replacement (ICD-10-PCS; 2019-07-23)
PROC: 30233R1 Transfusion of Nonautologous Platelets into Peripheral Vein, Percutaneous Approach (ICD-10-PCS; 2019-07-23)
PROC: 02QJ0ZZ Repair Tricuspid Valve, Open Approach (ICD-10-PCS; 2019-07-23)
PROC: 021009W Bypass Coronary Artery, One Artery from Aorta with Autologous Venous Tissue, Open Approach (ICD-10-PCS; principal; 2019-07-23 07:55)
PROC: 0JH606Z Insertion of Pacemaker, Dual Chamber into Chest Subcutaneous Tissue and Fascia, Open Approach (ICD-10-PCS; 2019-07-28)
PROC: 02H63JZ Insertion of Pacemaker Lead into Right Atrium, Percutaneous Approach (ICD-10-PCS; 2019-07-28)
PROC: 0W9940Z Drainage of Right Pleural Cavity with Drainage Device, Percutaneous Endoscopic Approach (ICD-10-PCS; 2019-07-31)
DX: I34.0 Nonrheumatic mitral (valve) insufficiency (principal); I50.33 Acute on chronic diastolic (congestive) heart failure; I46.9 Cardiac arrest, cause unspecified; I31.3 Pericardial effusion (noninflammatory); I44.2 Atrioventricular block, complete; J90 Pleural effusion, not elsewhere classified; I36.1 Nonrheumatic tricuspid (valve) insufficiency; I25.10 Atherosclerotic heart disease of native coronary artery without angina pectoris; D69.6 Thrombocytopenia, unspecified; I27.20 Pulmonary hypertension, unspecified; I44.7 Left bundle-branch block, unspecified; I71.2 Thoracic aortic aneurysm, without rupture; I35.1 Nonrheumatic aortic (valve) insufficiency; I11.0 Hypertensive heart disease with heart failure; H35.30 Unspecified macular degeneration; Z72.0 Tobacco use
CPT/HCPCS: 0232T; 32555; 33208; 93312; 93325; 36415; 36600; 71045; 71046; 76937; 80048; 80053; 81001; 82272; 82330; 82435; 82800; 82803; 82947; 82948; 83036; 83735; 83880; 84100; 84132; 84295; 85018; 85025; 85347; 85384; 85610; 85730; 86885; 86900; 86901; 86920; 87070; 87081; 87088; 88300; 88305; 93005; 94002; 94003; 94640; 94760; 97110; 97116; 97161; 97530; 99152; 99153; A4565; A4618; A4620; A6258; A6402; A6449; A7000; A7048; C1713; C1768; C1785; C1894; C1898; C9113; G0378; J0282; J0690; J1200; J1265; J1644; J1815; J1940; J2001; J2060; J2150; J2250; J2270; J2370; J2405; J2440; J2597; J2720; J2795; J2930; J3010; J3370; J3475; J3480; J3490; J7030; J7040; J7050; J7060; J7120; P9012; P9016; P9035; P9045; P9047

== ENCOUNTER 2021-07-03 11:45 | Emergency (ER) | payer MEDICARE, OTHER ==
[~2021-07-03] VITALS: Ht 157.5 cm; Wt 56.4 kg
[~2021-07-03 11:45] MED LIST changes: +ASPI-611 PO; -CARV-50 PO; +CARV6.252 PO; +CYCL1DRO EACHEYE; -CYCL1DRO PO; -DILT120T3 PO; -DOCUMENT DATE & TIME OF BETA-BLOCKER PO ONE; -FURO-150 PO; +IRON150C8 PO; +LACT-237 PO; -LISI10TA4 PO; -RANI-635 PO; -ROPIVAcaine 0.5% (5mg/ml) 30ml vial ONE; -VANCOMYCIN INJ 1000 MG in NORMAL SALINE 250ml IV.SOLN IV ONE; -[UNRECOGNIZED DRUG - CODE] PO; -cefazolin/dext.iso 2gm/100ml 100 ML IV ONE; -dextrose 50%-water 50ml dispensing syringe IV PRN; -famotidine 20mg tablet PO ONE; -gabapentin 400mg capsule PO ONE; -metoprolol tartrate 12.5mg (1/2 tablet) PO ONE; -midazolam 2 mg/2 ml injection IV ONE; -ringers solution, lacted 1,000 ML IV SCH
[2021-07-03 11:52] VITALS: BP 152/83
[2021-07-03] MEDS ORDERED: VALA100031 PO (12:15)
[2021-07-03] MEDS ORDERED: LIDO30CR TOP (12:15)
[2021-07-03] MEDS ORDERED: PHEN51CR24 RC (12:15)
== END 2021-07-03 12:42 | disposition home or self-care (01) ==
LOC: ER 11:46
DX: K64.9 Unspecified hemorrhoids (principal); B02.9 Zoster without complications; I25.10 Atherosclerotic heart disease of native coronary artery without angina pectoris; I10 Essential (primary) hypertension; Z72.89 Other problems related to lifestyle; Z79.82 Long term (current) use of aspirin; Z79.899 Other long term (current) drug therapy; Z91.011 Allergy to milk products
CPT/HCPCS: 99283

== ENCOUNTER 2021-10-25 18:02 | Emergency (ER) | payer MEDICARE, OTHER ==
[~2021-10-25] VITALS: Ht 157.5 cm; Wt 62.7 kg
[~2021-10-25 18:02] MED LIST changes: +LIDO30CR TOP; +PHEN51CR24 RC; +VALA100031 PO
--- NOTE | 2021-10-25 19:26 | NUR ---
Pt presents to the ed with c/o discomfort in abd and bladder s/p hemorrhoid surgery x one day; the pt states she has not voided nor have a bm since her surgery; she denies other symptoms; the pt has a significant cardiac hx, GI, and other problems; the pt is a/o, nad, skin p/w/d; will ctm.
[2021-10-25 19:42] LABS: BASOPHILS % (AUTO) 0.5 % (0-1); EOSINOPHILS % (AUTO) 0.7 % (0-6); HEMATOCRIT 31.4 % (35.0-45.0); HEMOGLOBIN 10.4 g/dl (12.0-16.0); LYMPHOCYTES # (AUTO) 0.7 X10'3 (1.1-4.8); LYMPHOCYTES % (AUTO) 12.2 % (21-51); MEAN CORPUSCULAR HEMOGLOBIN 32.7 PG (27.0-31.0); MEAN CORPUSCULAR HGB CONC 33.2 g/dL (33.0-36.5); MEAN CORPUSCULAR VOLUME 98.3 FL (78-98); MEAN PLATELET VOLUME 7.7 FL (7.4-10.4); MONOCYTES # (AUTO) 0.6 X10'3 (0-0.9); MONOCYTES % (AUTO) 10.5 % (2-12); NEUTROPHILS # (AUTO) 4.3 X10'3 (1.8-7.7); NEUTROPHILS % (AUTO) 76.1 % (42-75); RED BLOOD COUNT 3.19 X10'6 (4.20-5.60); RED CELL DISTRIBUTION WIDTH 15.1 % (11.5-14.5); WHITE BLOOD COUNT 5.7 X10'3 (4.5-11.0)
[2021-10-25 19:54] LABS: ALANINE AMINOTRANSFERASE 35 U/L (12-78); ALBUMIN 3.6 G/DL (3.4-5.0); ALBUMIN/GLOBULIN RATIO 1.2 (1.1-1.5); ALKALINE PHOSPHATASE 116 IU/L (46-116); ANION GAP 13 (8-16); ASPARTATE AMINO TRANSFERASE 44 U/L (10-37); BLOOD UREA NITROGEN 32 MG/DL (7-18); BUN/CREATININE RATIO 14.4 (6.6-38.0); CALCIUM 8.4 MG/DL (8.5-10.1); CHLORIDE 103 MMOL/L (99-107); CREATININE 2.22 MG/DL (0.40-0.90); GLUCOSE 113 MG/DL (70-104); POTASSIUM 4.1 MMOL/L (3.5-5.1); SODIUM 137 MMOL/L (135-145); TOTAL CARBON DIOXIDE 21.4 MMOL/L (24-32); TOTAL PROTEIN 6.7 G/DL (6.4-8.2); eGFR 21 ML/MIN
--- NOTE | 2021-10-25 20:03 | NUR ---
16 F loja catheter inserted with immediate return of clear harriett urine; pt estefany pre well.
[2021-10-25 20:12] LABS: PLATELET COUNT 41 X10'3 (140-440)
[2021-10-25 20:20] LABS: CLARITY,URINE CLEAR (Clear); GLUCOSE, URINE NEGATIVE (Neg); KETONES,URINE NEGATIVE (Neg); LEUKOCYTE ESTERASE ,URINE NEGATIVE (Neg); NITRITES, URINE NEGATIVE (Neg); OCCULT BLOOD,URINE NEGATIVE (Neg); PH,URINE 5.5 (4.8-8.0); PROTEIN,URINE TRACE mg/dl (Neg); UROBILINOGEN,URINE 0.2 E.U/dL (0.2-1.0)
[2021-10-25 20:24] LABS: COLOR,URINE DARK YELLOW (Yellow); UA COLLECTION TYPE NON-SPECIFIED
[2021-10-25 20:30] LABS: BACTERIA,URINE NONE SEEN /HPF (Neg); MUCUS STRANDS FEW /LPF (Neg); RBC,URINE 0-2 /HPF (0-2); SQUAMOUS EPITHELIAL CELL,UR FEW /LPF (FEW); WBC,URINE 0-4 /HPF (0-4)
[2021-10-25] MEDS ORDERED: normal saline 1000ML IV soln IVB ONE (21:00)
[2021-10-25 22:32] VITALS: BP 101/64
== END 2021-10-25 22:33 | disposition home or self-care (01) ==
LOC: ER 18:03
DX: R33.9 Retention of urine, unspecified (principal); I12.9 Hypertensive chronic kidney disease with stage 1 through stage 4 chronic kidney disease, or unspecified chronic kidney disease; N18.9 Chronic kidney disease, unspecified; E86.0 Dehydration; D69.6 Thrombocytopenia, unspecified; I25.10 Atherosclerotic heart disease of native coronary artery without angina pectoris; Z72.89 Other problems related to lifestyle; Z91.011 Allergy to milk products; Z91.012 Allergy to eggs; Z79.82 Long term (current) use of aspirin; Z79.899 Other long term (current) drug therapy; Z79.2 Long term (current) use of antibiotics
CPT/HCPCS: 36415; 51702; 80053; 81001; 85025; 99284; J7030

== ENCOUNTER 2021-11-11 10:41 | Inpatient (IN) | payer MEDICARE, OTHER ==
[~2021-11-11] VITALS: Ht 157.5 cm; Wt 55.9 kg
[2021-11-11 12:03] LABS: BASOPHILS % (AUTO) 1.3 % (0-1); EOSINOPHILS # (AUTO) 0.1 X10'3 (0-0.9); EOSINOPHILS % (AUTO) 2.8 % (0-6); HEMOGLOBIN 10.7 g/dl (12.0-16.0); LYMPHOCYTES # (AUTO) 0.4 X10'3 (1.1-4.8); LYMPHOCYTES % (AUTO) 16.3 % (21-51); MEAN CORPUSCULAR HEMOGLOBIN 32.5 PG (27.0-31.0); MEAN CORPUSCULAR HGB CONC 33.6 g/dL (33.0-36.5); MEAN CORPUSCULAR VOLUME 96.7 FL (78-98); MEAN PLATELET VOLUME 7.3 FL (7.4-10.4); MONOCYTES # (AUTO) 0.2 X10'3 (0-0.9); MONOCYTES % (AUTO) 10.4 % (2-12); NEUTROPHILS # (AUTO) 1.6 X10'3 (1.8-7.7); NEUTROPHILS % (AUTO) 69.2 % (42-75); PLATELET COUNT 54 X10'3 (140-440); RED BLOOD COUNT 3.31 X10'6 (4.20-5.60); RED CELL DISTRIBUTION WIDTH 16.3 % (11.5-14.5); WHITE BLOOD COUNT 2.3 X10'3 (4.5-11.0)
[2021-11-11 12:22] LABS: ANISOCYTOSIS 1+; PLATELET ESTIMATE DECREASED; POIKILOCYTOSIS FEW; TOTAL CELLS COUNTED 100
[2021-11-11 13:00] LABS: ALANINE AMINOTRANSFERASE 19 U/L (12-78); ALBUMIN 3.3 G/DL (3.4-5.0); ALBUMIN/GLOBULIN RATIO 1.1 (1.1-1.5); ALKALINE PHOSPHATASE 108 IU/L (46-116); ANION GAP 7 (8-16); ASPARTATE AMINO TRANSFERASE 36 U/L (10-37); BILIRUBIN,TOTAL 1.2 MG/DL (0.1-1.0); BLOOD UREA NITROGEN 25 MG/DL (7-18); BUN/CREATININE RATIO 16.6 (6.6-38.0); CALCIUM 8.1 MG/DL (8.5-10.1); CHLORIDE 108 MMOL/L (99-107); CREATININE 1.51 MG/DL (0.40-0.90); GLUCOSE 106 MG/DL (70-104); POTASSIUM 4.1 MMOL/L (3.5-5.1); SODIUM 141 MMOL/L (135-145); TOTAL CARBON DIOXIDE 25.8 MMOL/L (24-32); TOTAL PROTEIN 6.4 G/DL (6.4-8.2); eGFR 33 ML/MIN
[2021-11-11] MEDS ORDERED: potassium Cl 20 mEq SR tablet PO STA (13:51)
[2021-11-11] MEDS ORDERED: furosemide 10 MG/1 ML 10ml inj IV ONE (13:55)
[2021-11-11] MEDS ORDERED: potassium CL 10mEq/100ml bag 100 ML IV PRN (15:00)
[2021-11-11] MEDS ORDERED: mag hydrox/Alum hydrox/simeth 30ml oral suspension PO PRN (15:00)
[2021-11-11] MEDS ORDERED: PERFLUTREN PROTEIN-A MICROSPHR (Optison) 0.22 MG/ML 3ML VIAL IV ONE (15:00)
[2021-11-11] MEDS ORDERED: acetaminophen 325mg tablet PO PRN (15:00)
[2021-11-11] MEDS ORDERED: potassium Cl 20 mEq SR tablet PO PRN ×2 (15:00)
[2021-11-11] MEDS ORDERED: ondansetron/PF 4mg/2ml inj IV PRN (15:00)
[2021-11-11] MEDS ORDERED: magnesium 2GM in 50ml NS 50 ML IV PRN (15:00)
[2021-11-11] MEDS ORDERED: magnesium 4gm in 100ml NS 100 ML IV PRN (15:00)
[2021-11-11] MEDS ORDERED: [UNRECOGNIZED DRUG - CODE] PO (15:16)
[2021-11-11] MEDS ORDERED: OMEP40CA21 PO (15:16)
[2021-11-11] MEDS ORDERED: DOCU-345 PO (15:16)
[2021-11-11] MEDS ORDERED: FURO40TA4 PO (15:16)
[2021-11-11] MEDS ORDERED: LEVO25TA7 PO (15:16)
[2021-11-11] MEDS ORDERED: GABA-530 PO (15:16)
[2021-11-11] MEDS ORDERED: GABA300C PO (15:16)
[2021-11-11] MEDS ORDERED: OXYC-658 PO (15:16)
[2021-11-11] MEDS ORDERED: ATOR10TA70 PO (15:17)
[2021-11-11] MEDS ORDERED: oxyCODONE IR 5mg (immed. release) tablet PO PRN (15:35)
--- NOTE | 2021-11-11 19:05 | NUR ---
Introduced self to pt. Cleaned pt room from dinner tray. Pt pink, alert, no acute/resp distress. Denies further questions at this time.
[2021-11-11] MEDS ORDERED: K and/or MAG REPLACEMENT MC SCH (20:00)
[2021-11-11] MEDS ORDERED: enoxaparin 40mg/0.4ml syringe SQ SCH (20:00)
[2021-11-11] MEDS: furosemide 10 MG/1 ML 10ml inj IV SCH (20:19)
[2021-11-11] MEDS: docusate sod 100mg capsule PO SCH (20:21)
--- NOTE | 2021-11-11 20:26 | NUR ---
Pt pink, alert, no acute/resp distress. Bed down, wheels locked, rails 2/2 up. PIV site c/d/i s complication or adverse reaction. Will continue to monitor for acute changes and needs.
[2021-11-11] MEDS ORDERED: gabapentin 300mg capsule PO SCH (21:00)
--- NOTE | 2021-11-11 21:21 | NUR ---
Report called to floor. Pt pink, alert, no acute/resp distress. PIV site c/d/i s complication or adverse reaction.
[2021-11-11 22:00] VITALS: BP 138/79
[2021-11-12 01:16] VITALS: BP 119/77
[2021-11-12 02:00] VITALS: BP 131/85
--- NOTE | 2021-11-12 03:19 | NUR ---
Pt was transferred to the floor at about 2145 and on a gurney and ambulated to the bed. She is A&Ox4 and able to make needs known. VSS, Afebrile and no complaint of pain. Pt saturating on 96% RA, w/o complaint of respiratory distress/SOB. Bilat BKA 3+ pitting edema noted. Pt oriented to bed , room and POC.
[2021-11-12] MEDS: docusate sod 100mg capsule PO SCH (08:00)
[2021-11-12] MEDS ORDERED: aspirin 81mg, enteric-coated 1 TAB TABLET.DR PO SCH (08:00)
[2021-11-12] MEDS ORDERED: gabapentin 100mg capsule PO SCH (08:00)
[2021-11-12] MEDS ORDERED: levoTHYROXINE 25mcg tablet PO SCH (08:00)
[2021-11-12] MEDS ORDERED: atorvastatin 10mg tablet PO SCH (08:00)
[2021-11-12] MEDS ORDERED: pantoprazole 40mg Tablet.DR PO SCH (08:00)
[2021-11-12] MEDS ORDERED: polyethylene glycol 3350 17gm powd pack PO SCH (08:00)
[2021-11-12 09:34] LABS: ALANINE AMINOTRANSFERASE 19 U/L (12-78); ALBUMIN 3.2 G/DL (3.4-5.0); ALKALINE PHOSPHATASE 102 IU/L (46-116); ANION GAP 11 (8-16); ASPARTATE AMINO TRANSFERASE 33 U/L (10-37); BILIRUBIN,TOTAL 1.3 MG/DL (0.1-1.0); BLOOD UREA NITROGEN 26 MG/DL (7-18); BUN/CREATININE RATIO 16.9 (6.6-38.0); CALCIUM 8.6 MG/DL (8.5-10.1); CHLORIDE 105 MMOL/L (99-107); CREATININE 1.54 MG/DL (0.40-0.90); GLUCOSE 93 MG/DL (70-104); POTASSIUM 3.8 MMOL/L (3.5-5.1); SODIUM 142 MMOL/L (135-145); TOTAL CARBON DIOXIDE 25.7 MMOL/L (24-32); TOTAL PROTEIN 6.3 G/DL (6.4-8.2); eGFR 32 ML/MIN
[2021-11-12 09:37] LABS: CHOL/HDL RATIO 2.4 (0.00-4.99); CHOLESTEROL 110 MG/DL (0-200); HDL CHOLESTEROL 46 MG/DL (35-60); LDL CHOLESTEROL 58 MG/DL (50-100); MAGNESIUM 2.1 MG/DL (1.5-2.4); TRIGLYCERIDES 61 MG/DL (20-135)
[2021-11-12 10:31] LABS: BASOPHILS % (AUTO) 0.9 % (0-1); EOSINOPHILS # (AUTO) 0.1 X10'3 (0-0.9); HEMATOCRIT 31.4 % (35.0-45.0); HEMOGLOBIN 10.5 g/dl (12.0-16.0); LYMPHOCYTES # (AUTO) 0.3 X10'3 (1.1-4.8); LYMPHOCYTES % (AUTO) 19.2 % (21-51); MEAN CORPUSCULAR HEMOGLOBIN 32.9 PG (27.0-31.0); MEAN CORPUSCULAR HGB CONC 33.4 g/dL (33.0-36.5); MEAN CORPUSCULAR VOLUME 98.5 FL (78-98); MEAN PLATELET VOLUME 7.7 FL (7.4-10.4); MONOCYTES # (AUTO) 0.2 X10'3 (0-0.9); MONOCYTES % (AUTO) 9.8 % (2-12); NEUTROPHILS # (AUTO) 1.1 X10'3 (1.8-7.7); NEUTROPHILS % (AUTO) 66.1 % (42-75); RED BLOOD COUNT 3.19 X10'6 (4.20-5.60); WHITE BLOOD COUNT 1.7 X10'3 (4.5-11.0)
[2021-11-12 10:38] LABS: PLATELET COUNT 48 X10'3 (140-440)
[2021-11-12 11:00] LABS: TOTAL CELLS COUNTED 100
[2021-11-12 11:01] LABS: ANISOCYTOSIS 1+; PLATELET ESTIMATE DECREASED
[2021-11-12] MEDS ORDERED: FURO40TA4 PO (11:10)
[2021-11-12] MEDS: furosemide 10 MG/1 ML 10ml inj IV SCH (11:51)
--- NOTE | 2021-11-12 15:58 | NUR ---
Pt stable for discharge per Dr. Morales order. All discharge instructions reviewed and all questions answered. Belongings collects and sent with patient. PIV discontinued cannula intact. Tele discontinued. Wheeled to lobby via nurses aid. Picked up by private vehicle.
== END 2021-11-12 13:30 | disposition home or self-care (01) | DRG 291 ==
LOC: ER 10:43 → ED HOLD 15:03 → EDBEDREQ 21:06 → PCU 3S 21:40
PROVIDERS: ADMIT Family Medicine; ATTEND Family Medicine
DX: I13.0 Hypertensive heart and chronic kidney disease with heart failure and stage 1 through stage 4 chronic kidney disease, or unspecified chronic kidney disease (principal); I50.33 Acute on chronic diastolic (congestive) heart failure; D61.818 Other pancytopenia; N17.9 Acute kidney failure, unspecified; E78.5 Hyperlipidemia, unspecified; I25.10 Atherosclerotic heart disease of native coronary artery without angina pectoris; I48.91 Unspecified atrial fibrillation; I49.5 Sick sinus syndrome; K70.31 Alcoholic cirrhosis of liver with ascites; R16.1 Splenomegaly, not elsewhere classified; E73.9 Lactose intolerance, unspecified; M81.0 Age-related osteoporosis without current pathological fracture; N18.30 Chronic kidney disease, stage 3 unspecified; Z80.0 Family history of malignant neoplasm of digestive organs; Z80.1 Family history of malignant neoplasm of trachea, bronchus and lung; Z82.49 Family history of ischemic heart disease and other diseases of the circulatory system; Z85.038 Personal history of other malignant neoplasm of large intestine; Z95.0 Presence of cardiac pacemaker; Z95.3 Presence of xenogenic heart valve; Z91.012 Allergy to eggs; Z79.899 Other long term (current) drug therapy; Z79.82 Long term (current) use of aspirin; Z81.1 Family history of alcohol abuse and dependence
CPT/HCPCS: 36415; 71045; 80053; 80061; 83735; 83880; 84484; 85007; 85025; 87081; 93005; 93306; 96374; 99285; G0378; J1940

== ENCOUNTER 2021-12-23 21:03 | Emergency (ER) | payer MEDICARE, OTHER ==
[~2021-12-23] VITALS: Ht 157.5 cm; Wt 60.0 kg
[~2021-12-23 21:03] MED LIST changes: +ATOR10TA70 PO; -CARV6.252 PO; -CYCL1DRO EACHEYE; +DOCU-345 PO; +FURO40TA4 PO; +GABA-530 PO; +GABA300C PO; -IRON150C8 PO; -LACT-237 PO; +LEVO25TA7 PO; -LIDO30CR TOP; -LORA10TA61 PO; -MULT-955 PO; -OCUVITE PO; +OMEP40CA21 PO; +OXYC-658 PO; -PHEN51CR24 RC; -VALA100031 PO; +[UNRECOGNIZED DRUG - CODE] PO
[2021-12-23 23:06] VITALS: BP 120/84
== END 2021-12-23 23:07 | disposition home or self-care (01) ==
LOC: ER 21:03
DX: J90 Pleural effusion, not elsewhere classified (principal); I25.10 Atherosclerotic heart disease of native coronary artery without angina pectoris; I11.0 Hypertensive heart disease with heart failure; I50.9 Heart failure, unspecified; Z87.01 Personal history of pneumonia (recurrent); Z72.89 Other problems related to lifestyle; Z88.8 Allergy status to other drugs, medicaments and biological substances; Z91.012 Allergy to eggs; Z91.011 Allergy to milk products; Z79.82 Long term (current) use of aspirin; Z79.899 Other long term (current) drug therapy
CPT/HCPCS: 71045; 99283

== ENCOUNTER 2022-01-20 17:18 | Inpatient (IN) | payer MEDICARE, OTHER ==
[~2022-01-20] VITALS: Ht 157.5 cm; Wt 68.9 kg
[2022-01-21 03:45] LABS: BASOPHILS % (AUTO) 0.6 % (0-1); EOSINOPHILS # (AUTO) 0.1 X10'3 (0-0.9); EOSINOPHILS % (AUTO) 1.2 % (0-6); HEMATOCRIT 33.5 % (35.0-45.0); HEMOGLOBIN 11.2 g/dl (12.0-16.0); LYMPHOCYTES # (AUTO) 0.6 X10'3 (1.1-4.8); LYMPHOCYTES % (AUTO) 15.2 % (21-51); MEAN CORPUSCULAR HEMOGLOBIN 33.1 PG (27.0-31.0); MEAN CORPUSCULAR HGB CONC 33.4 g/dL (33.0-36.5); MEAN CORPUSCULAR VOLUME 99.1 FL (78-98); MEAN PLATELET VOLUME 8.3 FL (7.4-10.4); MONOCYTES # (AUTO) 0.5 X10'3 (0-0.9); MONOCYTES % (AUTO) 12.6 % (2-12); NEUTROPHILS % (AUTO) 70.4 % (42-75); RED BLOOD COUNT 3.38 X10'6 (4.20-5.60); RED CELL DISTRIBUTION WIDTH 16.7 % (11.5-14.5); WHITE BLOOD COUNT 4.3 X10'3 (4.5-11.0)
[2022-01-21 03:50] LABS: PLATELET COUNT 47 X10'3 (140-440)
[2022-01-21 04:02] LABS: ALANINE AMINOTRANSFERASE 28 U/L (12-78); ALBUMIN 3.7 G/DL (3.4-5.0); ALKALINE PHOSPHATASE 160 IU/L (46-116); ANION GAP 9 (8-16); ASPARTATE AMINO TRANSFERASE 49 U/L (10-37); BLOOD UREA NITROGEN 57 MG/DL (7-18); BUN/CREATININE RATIO 20.7 (6.6-38.0); CALCIUM 8.8 MG/DL (8.5-10.1); CHLORIDE 105 MMOL/L (99-107); CREATININE 2.76 MG/DL (0.40-0.90); GLUCOSE 111 MG/DL (70-104); POTASSIUM 5.1 MMOL/L (3.5-5.1); SODIUM 136 MMOL/L (135-145); TOTAL CARBON DIOXIDE 22.1 MMOL/L (24-32); TOTAL PROTEIN 7.4 G/DL (6.4-8.2); eGFR 16 ML/MIN
[2022-01-21 04:11] LABS: BETA HCG,QUANTITATIVE 4 mIU/ml; LIPASE 69 U/L (73-393)
[2022-01-21] MEDS ORDERED: furosemide 10 MG/1 ML 10ml inj IV ONE (04:30)
[2022-01-21] MEDS ORDERED: furosemide 40mg/4ml inj IV ONE (04:35)
[2022-01-21] MEDS ORDERED: POTA-82 PO (04:40)
[2022-01-21] MEDS ORDERED: FURO-149 PO (04:40)
[2022-01-21] MEDS ORDERED: docusate sod 100mg capsule PO PRN (05:05)
[2022-01-21] MEDS ORDERED: magnesium 4gm in 100ml NS 100 ML IV PRN (05:10)
[2022-01-21] MEDS ORDERED: POTASSIUM BICARB 20meq eff tab 20 MEQ TABLET.EFF PO PRN ×2 (05:10)
[2022-01-21] MEDS ORDERED: potassium CL 10mEq/100ml bag 100 ML IV PRN (05:10)
[2022-01-21] MEDS ORDERED: acetaminophen 325mg tablet PO PRN (05:10)
[2022-01-21] MEDS ORDERED: magnesium 2GM in 50ml NS 50 ML IV PRN (05:10)
[2022-01-21] MEDS ORDERED: ondansetron/PF 4mg/2ml inj IV PRN (05:10)
--- NOTE | 2022-01-21 05:40 | NUR ---
Pt states she has not produced any urine since yesterday morning.
[2022-01-21] MEDS ORDERED: furosemide 40mg/4ml inj IV SCH (08:00)
[2022-01-21] MEDS: aspirin 81mg, enteric-coated 1 TAB TABLET.DR PO SCH (08:00)
[2022-01-21] MEDS: K and/or MAG REPLACEMENT MC SCH ×2 (08:00→20:00)
[2022-01-21] MEDS: levoTHYROXINE 25mcg tablet PO SCH (08:25)
[2022-01-21] MEDS: gabapentin 100mg capsule PO SCH ×2 (08:25→14:22)
[2022-01-21] MEDS: pantoprazole 40mg Tablet.DR PO SCH (08:26)
[2022-01-21] MEDS: atorvastatin 10mg tablet PO SCH (08:26)
[2022-01-21] MEDS: polyethylene glycol 3350 17gm powd pack PO SCH (08:27)
--- NOTE | 2022-01-21 09:00 | NUR ---
report received from ANANYA Key
[2022-01-21 09:15] VITALS: BP 132/47
--- NOTE | 2022-01-21 09:21 | NUR ---
pt arrived to room 3019R
[2022-01-21 11:00] VITALS: BP 103/42
[2022-01-21 12:28] LABS: D-DIMER 4.23 MG/L FEU (0-0.50)
[2022-01-21 15:00] VITALS: BP 111/47
[2022-01-21] MEDS ORDERED: ipratropium/albuterol 3ml nebule NEB SCH (15:00)
--- NOTE | 2022-01-21 15:58 | NUR ---
Page sent to Dr. Thompson regarding changing scheduled breathing tx's to prn. Pt states she's never taken them before. Breath sounds are diminished but clear.
[2022-01-21 16:03] LABS: UA COLLECTION TYPE STRAIGHT CATH
[2022-01-21 16:04] LABS: CLARITY,URINE CLEAR (Clear); COLOR,URINE YELLOW (Yellow); GLUCOSE, URINE NEGATIVE (Neg); KETONES,URINE NEGATIVE (Neg); LEUKOCYTE ESTERASE ,URINE NEGATIVE (Neg); NITRITES, URINE NEGATIVE (Neg); OCCULT BLOOD,URINE NEGATIVE (Neg); PROTEIN,URINE NEGATIVE (Neg); UROBILINOGEN,URINE 0.2 E.U/dL (0.2-1.0)
[2022-01-21 16:07] LABS: URINE AMPHETAMINE SCREEN NEGATIVE (Neg); URINE BARBITUATE SCREEN NEGATIVE (Neg); URINE BENZODIAZEPINES SCREEN NEGATIVE (Neg); URINE CANNABINOID SCREEN NEGATIVE (Neg); URINE COCAINE SCREEN NEGATIVE (Neg); URINE METHADONE SCREEN NEGATIVE (Neg); URINE OPIATE SCREEN POSITIVE (Neg); URINE PHENCYCLIDINE SCREEN NEGATIVE (Neg)
[2022-01-21] MEDS ORDERED: ipratropium/albuterol 3ml nebule NEB PRN (16:20)
[2022-01-21] MEDS: azithromycin 250mg tablet PO SCH (17:54)
[2022-01-21] MEDS: cefTRIAXone 1g/NS 100ml IVPB 100 ML IV SCH (17:54)
--- NOTE | 2022-01-21 18:10 | NUR ---
Problems reprioritized. Patient report given, questions answered & plan of care reviewed with ANANYA Head.
[2022-01-21] MEDS: ipratropium/albuterol 3ml nebule NEB SCH (20:00)
[2022-01-21] MEDS: furosemide 40mg/4ml inj IV SCH (20:21)
[2022-01-21] MEDS ORDERED: gabapentin 300mg capsule PO SCH (21:00)
[2022-01-21 22:00] VITALS: BP 120/54
[2022-01-22 02:00] VITALS: BP 103/40
[2022-01-22] MEDS: ipratropium/albuterol 3ml nebule NEB SCH ×4 (02:00→20:00)
[2022-01-22 06:38] LABS: BASOPHILS % (AUTO) 0.8 % (0-1); EOSINOPHILS # (AUTO) 0.1 X10'3 (0-0.9); EOSINOPHILS % (AUTO) 3.2 % (0-6); HEMATOCRIT 30.5 % (35.0-45.0); HEMOGLOBIN 10.3 g/dl (12.0-16.0); LYMPHOCYTES # (AUTO) 0.7 X10'3 (1.1-4.8); LYMPHOCYTES % (AUTO) 19.7 % (21-51); MEAN CORPUSCULAR HEMOGLOBIN 33.8 PG (27.0-31.0); MEAN CORPUSCULAR HGB CONC 33.6 g/dL (33.0-36.5); MEAN CORPUSCULAR VOLUME 100.5 FL (78-98); MEAN PLATELET VOLUME 7.3 FL (7.4-10.4); MONOCYTES # (AUTO) 0.5 X10'3 (0-0.9); MONOCYTES % (AUTO) 12.5 % (2-12); NEUTROPHILS # (AUTO) 2.3 X10'3 (1.8-7.7); NEUTROPHILS % (AUTO) 63.8 % (42-75); RED BLOOD COUNT 3.04 X10'6 (4.20-5.60); RED CELL DISTRIBUTION WIDTH 17.1 % (11.5-14.5); WHITE BLOOD COUNT 3.7 X10'3 (4.5-11.0)
[2022-01-22 06:45] LABS: PLATELET COUNT 37 X10'3 (140-440)
--- NOTE | 2022-01-22 06:52 | NUR ---
Patient in room PCU 3013. I have received report from Adilene HARE and had the opportunity to ask questions and assume patient care.
--- NOTE | 2022-01-22 06:59 | NUR ---
Critical Lab Value - Paged - Message: [id number] Leatha Martinez: Critical lab Platelets 37. [facility] [id number] Transaction number: [id number]
[2022-01-22 07:00] VITALS: BP 93/49
[2022-01-22 07:26] LABS: ALBUMIN 3.2 G/DL (3.4-5.0); ANION GAP 11 (8-16); BLOOD UREA NITROGEN 64 MG/DL (7-18); BUN/CREATININE RATIO 21.3 (6.6-38.0); CALCIUM 8.6 MG/DL (8.5-10.1); CHLORIDE 107 MMOL/L (99-107); GLUCOSE 102 MG/DL (70-104); MAGNESIUM 2.5 MG/DL (1.5-2.4); SODIUM 139 MMOL/L (135-145); eGFR 15 ML/MIN
[2022-01-22 07:28] LABS: POTASSIUM 5.1 MMOL/L (3.5-5.1)
[2022-01-22] MEDS: polyethylene glycol 3350 17gm powd pack PO SCH ×2 (08:00→08:58)
[2022-01-22] MEDS: K and/or MAG REPLACEMENT MC SCH ×2 (08:00→20:00)
[2022-01-22] MEDS: atorvastatin 10mg tablet PO SCH (08:58)
[2022-01-22] MEDS: furosemide 40mg/4ml inj IV SCH ×2 (08:58→21:01)
[2022-01-22] MEDS: gabapentin 100mg capsule PO SCH (08:58)
[2022-01-22] MEDS: azithromycin 250mg tablet PO SCH (08:58)
[2022-01-22] MEDS: aspirin 81mg, enteric-coated 1 TAB TABLET.DR PO SCH (08:58)
[2022-01-22] MEDS: levoTHYROXINE 25mcg tablet PO SCH (08:58)
[2022-01-22] MEDS: cefTRIAXone 1g/NS 100ml IVPB 100 ML IV SCH (08:59)
[2022-01-22] MEDS: pantoprazole 40mg Tablet.DR PO SCH (08:59)
[2022-01-22 11:00] VITALS: BP 111/79
[2022-01-22] MEDS ORDERED: gabapentin 100mg capsule PO SCH (14:04)
[2022-01-22] MEDS ORDERED: gabapentin 300mg capsule PO SCH (14:04)
--- NOTE | 2022-01-22 14:12 | NUR ---
Patient had no output after Lasix dose this AM. I let her know I would need to straight cath her if she wasn't able to void on her own. She then stated she felt like she needed to go, and i helped her onto the commode. Tech helped PT off commode and was not able to accurately measure urine as it was mixed with stool, but she estimated the patient output was about 150mls. I bladder scanned patient at 1400 and saw a total of 257mls. I let patient know we could wait a little while and she can try to void again, but we may need to straight cath if she cannot pee more.
[2022-01-22 15:00] VITALS: BP 103/46
[2022-01-22 18:30] VITALS: BP 127/61
[2022-01-22 22:30] VITALS: BP 112/50
[2022-01-23] VITALS (7 sets, daily range): BP systolic 105–140; BP diastolic 51–66
[2022-01-23] MEDS: ipratropium/albuterol 3ml nebule NEB SCH ×4 (02:00→20:00)
[2022-01-23 06:19] LABS: EOSINOPHILS # (AUTO) 0.1 X10'3 (0-0.9); HEMOGLOBIN 9.4 g/dl (12.0-16.0); LYMPHOCYTES # (AUTO) 0.5 X10'3 (1.1-4.8); MONOCYTES # (AUTO) 0.3 X10'3 (0-0.9); NEUTROPHILS # (AUTO) 1.3 X10'3 (1.8-7.7); WHITE BLOOD COUNT 2.3 X10'3 (4.5-11.0)
[2022-01-23 06:23] LABS: BASOPHILS % (AUTO) 1.1 % (0-1); EOSINOPHILS % (AUTO) 5.8 % (0-6); LYMPHOCYTES % (AUTO) 23.3 % (21-51); MEAN CORPUSCULAR HEMOGLOBIN 33.5 PG (27.0-31.0); MEAN CORPUSCULAR HGB CONC 33.7 g/dL (33.0-36.5); MEAN CORPUSCULAR VOLUME 99.6 FL (78-98); MEAN PLATELET VOLUME 8.4 FL (7.4-10.4); MONOCYTES % (AUTO) 12.6 % (2-12); NEUTROPHILS % (AUTO) 57.2 % (42-75); RED BLOOD COUNT 2.81 X10'6 (4.20-5.60); RED CELL DISTRIBUTION WIDTH 16.9 % (11.5-14.5)
--- NOTE | 2022-01-23 06:30 | NUR ---
Patient in room PCU 3013. I have received report from Priya HARE and had the opportunity to ask questions and assume patient care.
[2022-01-23 06:34] LABS: ANION GAP 10 (8-16); BLOOD UREA NITROGEN 66 MG/DL (7-18); BUN/CREATININE RATIO 23.1 (6.6-38.0); CALCIUM 8.2 MG/DL (8.5-10.1); CHLORIDE 107 MMOL/L (99-107); CREATININE 2.86 MG/DL (0.40-0.90); GLUCOSE 93 MG/DL (70-104); MAGNESIUM 2.3 MG/DL (1.5-2.4); POTASSIUM 4.4 MMOL/L (3.5-5.1); SODIUM 140 MMOL/L (135-145); TOTAL CARBON DIOXIDE 22.6 MMOL/L (24-32); eGFR 16 ML/MIN
[2022-01-23 06:44] LABS: PLATELET COUNT 45 X10'3 (140-440)
[2022-01-23 07:57] LABS: ANISOCYTOSIS 1+; PLATELET ESTIMATE DECREASED; TOTAL CELLS COUNTED 100
[2022-01-23 07:58] LABS: ACANTHOCYTES FEW; ELLIPTOCYTES 1+
[2022-01-23] MEDS: polyethylene glycol 3350 17gm powd pack PO SCH (08:00)
[2022-01-23] MEDS: aspirin 81mg, enteric-coated 1 TAB TABLET.DR PO SCH (08:00)
[2022-01-23] MEDS: K and/or MAG REPLACEMENT MC SCH ×2 (08:00→19:16)
[2022-01-23] MEDS: atorvastatin 10mg tablet PO SCH (08:39)
[2022-01-23] MEDS: furosemide 40mg/4ml inj IV SCH ×2 (08:39→19:16)
[2022-01-23] MEDS: azithromycin 250mg tablet PO SCH (08:39)
[2022-01-23] MEDS: pantoprazole 40mg Tablet.DR PO SCH (08:40)
[2022-01-23] MEDS: cefTRIAXone 1g/NS 100ml IVPB 100 ML IV SCH (08:40)
[2022-01-23] MEDS: levoTHYROXINE 25mcg tablet PO SCH (08:46)
--- NOTE | 2022-01-23 13:00 | NUR ---
Thoracentesis completed 650ml out
[2022-01-23 13:52] LABS: BFSOURCE RIGHT PLEURAL FLD
[2022-01-23 14:35] LABS: BF RBC COUNT 4700 /CU MM; BF WBC COUNT 190 /CU MM (0-1000); BFAPPEAR HAZY; BFCOLOR YELLOW; BFVOLUME 65 ML; LYMPHOCYTES,BODY FLUID 53 %; MONOCYTES,BODY FLUID 19 %; NEUTROPHILS,BODY FLUID 28 %
[2022-01-23 15:47] LABS: GLUCOSE,BODY FLUID 118 MG/DL; LDH,BODY FLUID 75 U/L
--- NOTE | 2022-01-23 18:35 | NUR ---
Patient in room PCU 3013. I have received report from Sarita HARE and had the opportunity to ask questions and assume patient care.
[2022-01-23] MEDS ORDERED: gabapentin 100mg capsule PO SCH (21:00)
[2022-01-24 02:00] VITALS: BP 105/53
[2022-01-24] MEDS: ipratropium/albuterol 3ml nebule NEB SCH ×2 (02:00→07:50)
--- NOTE | 2022-01-24 06:26 | NUR ---
Problems reprioritized. Patient report given, questions answered & plan of care reviewed with Maya HARE.
[2022-01-24 06:34] LABS: BASOPHILS % (AUTO) 1.1 % (0-1); EOSINOPHILS # (AUTO) 0.1 X10'3 (0-0.9); EOSINOPHILS % (AUTO) 4.9 % (0-6); HEMATOCRIT 27.7 % (35.0-45.0); HEMOGLOBIN 9.3 g/dl (12.0-16.0); LYMPHOCYTES # (AUTO) 0.4 X10'3 (1.1-4.8); LYMPHOCYTES % (AUTO) 20.2 % (21-51); MEAN CORPUSCULAR HEMOGLOBIN 33.2 PG (27.0-31.0); MEAN CORPUSCULAR HGB CONC 33.4 g/dL (33.0-36.5); MEAN CORPUSCULAR VOLUME 99.4 FL (78-98); MEAN PLATELET VOLUME 7.8 FL (7.4-10.4); MONOCYTES # (AUTO) 0.3 X10'3 (0-0.9); MONOCYTES % (AUTO) 15.7 % (2-12); NEUTROPHILS # (AUTO) 1.1 X10'3 (1.8-7.7); NEUTROPHILS % (AUTO) 58.1 % (42-75); RED BLOOD COUNT 2.79 X10'6 (4.20-5.60); RED CELL DISTRIBUTION WIDTH 16.5 % (11.5-14.5); WHITE BLOOD COUNT 1.9 X10'3 (4.5-11.0)
[2022-01-24 06:40] LABS: PLATELET COUNT 43 X10'3 (140-440)
[2022-01-24 06:58] LABS: ALBUMIN 2.8 G/DL (3.4-5.0); ANION GAP 8 (8-16); BLOOD UREA NITROGEN 64 MG/DL (7-18); BUN/CREATININE RATIO 22.5 (6.6-38.0); CHLORIDE 107 MMOL/L (99-107); CREATININE 2.84 MG/DL (0.40-0.90); GLUCOSE 92 MG/DL (70-104); MAGNESIUM 2.4 MG/DL (1.5-2.4); POTASSIUM 4.3 MMOL/L (3.5-5.1); SODIUM 140 MMOL/L (135-145); TOTAL CARBON DIOXIDE 24.6 MMOL/L (24-32); eGFR 16 ML/MIN
[2022-01-24 07:00] VITALS: BP 114/49
[2022-01-24 07:30] LABS: ACANTHOCYTES FEW; ANISOCYTOSIS 1+; ELLIPTOCYTES FEW; PLATELET ESTIMATE DECREASED; TOTAL CELLS COUNTED 100
--- NOTE | 2022-01-24 07:38 | NUR ---
Page Accepted promotional table spacer Message: [phone] Juan. Critical lab platelets 43. Maya @[phone] Custom Responses: promotional table spacer Transaction number: [id number]
[2022-01-24] MEDS ORDERED: apixaban 2.5mg tablet PO SCH (08:00)
[2022-01-24] MEDS: polyethylene glycol 3350 17gm powd pack PO SCH ×2 (08:00→09:25)
[2022-01-24] MEDS: K and/or MAG REPLACEMENT MC SCH (08:00)
[2022-01-24] MEDS ORDERED: CEFD300C3 PO (08:36)
[2022-01-24] MEDS ORDERED: ALBU8.5H17 INH (08:36)
[2022-01-24] MEDS ORDERED: APIX2.5T PO (08:36)
[2022-01-24] MEDS ORDERED: LACT1CAP26 PO (08:36)
[2022-01-24] MEDS: atorvastatin 10mg tablet PO SCH (09:24)
[2022-01-24] MEDS: levoTHYROXINE 25mcg tablet PO SCH (09:24)
[2022-01-24] MEDS: aspirin 81mg, enteric-coated 1 TAB TABLET.DR PO SCH (09:24)
[2022-01-24] MEDS: azithromycin 250mg tablet PO SCH (09:24)
[2022-01-24] MEDS: furosemide 40mg/4ml inj IV SCH (09:24)
[2022-01-24] MEDS: pantoprazole 40mg Tablet.DR PO SCH (09:24)
[2022-01-24] MEDS: cefTRIAXone 1g/NS 100ml IVPB 100 ML IV SCH (09:25)
[2022-01-24 11:00] VITALS: BP 109/52
--- NOTE | 2022-01-30 15:48 | NUR ---
Case Management DC follow up:Spoke with Patient's daughter via telephone.S/P:Patient Reports:Denies: Acute/continuous chest pain, Emergent SOB, resp distress,dyspnea; however, verbalized she has orthopnea.Denies:N/V, hematemesis,weakness, vertigo, syncope episodes, orthostatic hypotension, headache, blurry vision, s/s of stroke/BE-FAST, hematuria, hematochezia,melena, unexplained bruising,bleeding,fever, chills.Verbalizes understanding of s/s that warrant 9-11/ER visit for further evaluation.Verbalizes understanding of new Rx:, why prescribed: continues/resumes current Rx as ordered; however, verbalizes she is not taking Eliquis as prescribed, she just wants ASA. Verbalizes she has coupons for Eliquis; however , just does not want to take medication even with given explanation, and rationale as to why medication was prescribed. Encourage Patient to address her decision not to take medication with her PCP PA , via her appointment tomorrow 01/31/22.Encouraged use of incentive spirometer,reviewed fluid restriction, and daily weight.Verbalizes she will schedule follow [facility] that she has not been taking Eliquis .Verbalizes she will ask for referrals regarding division officer weapons department, and lifestyle director Verbalizes Nurses and everyone were just wonderful.Needs Met, questions/concerns addressed at DC. No further question/concerns regarding recent hospital stay and/or DC status at this time.Apprised Patient [facility] nurse will be contacting her.
== END 2022-01-24 13:25 | disposition home health service (06) | DRG 602 ==
LOC: ER 17:18 → ED HOLD 01-21 05:13 → EDBEDREQ 01-21 08:07 → PCU 3S 01-21 09:14
PROVIDERS: ADMIT Family Medicine; ATTEND Family Medicine
PROC: CB121ZZ Planar Nuclear Medicine Imaging of Lungs and Bronchi using Technetium 99m (Tc-99m) (ICD-10-PCS; 2022-01-22)
PROC: 0W993ZX Drainage of Right Pleural Cavity, Percutaneous Approach, Diagnostic (ICD-10-PCS; principal; 2022-01-23)
DX: L03.116 Cellulitis of left lower limb (principal); I50.33 Acute on chronic diastolic (congestive) heart failure; J44.0 Chronic obstructive pulmonary disease with (acute) lower respiratory infection; I13.0 Hypertensive heart and chronic kidney disease with heart failure and stage 1 through stage 4 chronic kidney disease, or unspecified chronic kidney disease; N17.9 Acute kidney failure, unspecified; D61.818 Other pancytopenia; I82.501 Chronic embolism and thrombosis of unspecified deep veins of right lower extremity; J91.8 Pleural effusion in other conditions classified elsewhere; N18.4 Chronic kidney disease, stage 4 (severe); Z20.822 Contact with and (suspected) exposure to COVID-19; K74.60 Unspecified cirrhosis of liver; I27.81 Cor pulmonale (chronic); I48.0 Paroxysmal atrial fibrillation; E03.9 Hypothyroidism, unspecified; E78.5 Hyperlipidemia, unspecified; I25.10 Atherosclerotic heart disease of native coronary artery without angina pectoris; I27.29 Other secondary pulmonary hypertension; J20.9 Acute bronchitis, unspecified; I49.5 Sick sinus syndrome; R01.1 Cardiac murmur, unspecified; M81.0 Age-related osteoporosis without current pathological fracture; Z95.0 Presence of cardiac pacemaker; Z85.038 Personal history of other malignant neoplasm of large intestine; Z79.01 Long term (current) use of anticoagulants; Z79.890 Hormone replacement therapy; Z79.899 Other long term (current) drug therapy; Z80.0 Family history of malignant neoplasm of digestive organs; Z80.1 Family history of malignant neoplasm of trachea, bronchus and lung; Z82.49 Family history of ischemic heart disease and other diseases of the circulatory system; Z95.1 Presence of aortocoronary bypass graft; Z95.3 Presence of xenogenic heart valve; Z91.012 Allergy to eggs; Z91.018 Allergy to other foods; Z87.01 Personal history of pneumonia (recurrent); Z81.1 Family history of alcohol abuse and dependence; Z79.82 Long term (current) use of aspirin
CPT/HCPCS: 32555; 36415; 71045; 78582; 80048; 80053; 80305; 81003; 82945; 83615; 83690; 83735; 83880; 83986; 84145; 84157; 84443; 84484; 84702; 85007; 85025; 85379; 87070; 89051; 93005; 93308; 93970; 94667; 94668; 94760; 97116; 97161; 97530; 99285; A6212; A9539; A9540; G0378; J0696; J1940; J7030

== ENCOUNTER 2022-02-09 23:22 | Inpatient (IN) | payer MEDICARE, OTHER ==
[~2022-02-09] VITALS: Ht 157.5 cm; Wt 55.5 kg
[~2022-02-09 23:22] MED LIST changes: +ALBU8.5H17 INH; +APIX2.5T PO; +CEFD300C3 PO; +FURO-149 PO; -FURO40TA4 PO; +LACT1CAP26 PO; -OXYC-658 PO; +POTA-82 PO
[2022-02-10 00:22] LABS: ALANINE AMINOTRANSFERASE 33 U/L (12-78); ALBUMIN 3.4 G/DL (3.4-5.0); ALBUMIN/GLOBULIN RATIO 0.9 (1.1-1.5); ALKALINE PHOSPHATASE 186 IU/L (46-116); ANION GAP 10 (8-16); ASPARTATE AMINO TRANSFERASE 48 U/L (10-37); BILIRUBIN,TOTAL 1.3 MG/DL (0.1-1.0); BLOOD UREA NITROGEN 77 MG/DL (7-18); BUN/CREATININE RATIO 18.3 (6.6-38.0); CALCIUM 8.5 MG/DL (8.5-10.1); CHLORIDE 106 MMOL/L (99-107); CREATININE 4.21 MG/DL (0.40-0.90); EOSINOPHILS % (AUTO) 1.8 % (0-6); GLUCOSE 117 MG/DL (70-104); HEMOGLOBIN 10.6 g/dl (12.0-16.0); LYMPHOCYTES # (AUTO) 0.3 X10'3 (1.1-4.8); LYMPHOCYTES % (AUTO) 13.5 % (21-51); MEAN CORPUSCULAR HEMOGLOBIN 33.6 PG (27.0-31.0); MEAN CORPUSCULAR HGB CONC 33.3 g/dL (33.0-36.5); MEAN CORPUSCULAR VOLUME 100.9 FL (78-98); MEAN PLATELET VOLUME 7.9 FL (7.4-10.4); MONOCYTES # (AUTO) 0.4 X10'3 (0-0.9); MONOCYTES % (AUTO) 14.5 % (2-12); NEUTROPHILS # (AUTO) 1.7 X10'3 (1.8-7.7); NEUTROPHILS % (AUTO) 69.2 % (42-75); RED BLOOD COUNT 3.17 X10'6 (4.20-5.60); SODIUM 134 MMOL/L (135-145); TOTAL CARBON DIOXIDE 17.9 MMOL/L (24-32); WHITE BLOOD COUNT 2.5 X10'3 (4.5-11.0); eGFR 10 ML/MIN
[2022-02-10 00:28] LABS: PLATELET COUNT 40 X10'3 (140-440)
[2022-02-10 00:41] LABS: ANISOCYTOSIS 1+; PLATELET ESTIMATE DECREASED; TOTAL CELLS COUNTED 100
[2022-02-10 00:42] LABS: ACANTHOCYTES FEW; ELLIPTOCYTES FEW; SCHISTOCYTES FEW
[2022-02-10 00:50] LABS: POTASSIUM 6.6 MMOL/L (3.5-5.1)
[2022-02-10] MEDS ORDERED: calcium chloride 100 MG/1 ML inj IV ONE (00:55)
[2022-02-10] MEDS ORDERED: insulin regular, human 10 units/0.1 ml syringe IV ONE ×4 (00:55→21:20)
[2022-02-10] MEDS ORDERED: normal saline 1000ml 1,000 ML IV ONE (00:55)
[2022-02-10] MEDS ORDERED: dextrose 50%-water 50ml dispensing syringe IV ONE ×3 (00:55→20:05)
[2022-02-10] MEDS ORDERED: normal saline 1000ML IV soln IVB ONE (01:00)
[2022-02-10] MEDS ORDERED: PATIROMER CALCIUM SORBITEX 8.4 GM POWD.PACK PO ONE (01:20)
[2022-02-10] MEDS ORDERED: HYDROcodone/acetaminophen 10/325mg tab PO PRN ×2 (02:05→11:45)
[2022-02-10] MEDS ORDERED: magnesium hydroxide 30ml (MOM) UD suspension PO PRN (02:05)
[2022-02-10] MEDS ORDERED: acetaminophen 325mg tablet PO PRN (02:05)
[2022-02-10] MEDS ORDERED: magnesium 4gm in 100ml NS 100 ML IV PRN (02:05)
[2022-02-10] MEDS ORDERED: HYDROcodone/acetaminophen 5mg/325mg tablet PO PRN (02:05)
[2022-02-10] MEDS ORDERED: mag hydrox/Alum hydrox/simeth 30ml oral suspension PO PRN (02:05)
[2022-02-10] MEDS ORDERED: ondansetron/PF 4mg/2ml inj IV PRN ×2 (02:05→11:45)
[2022-02-10] MEDS ORDERED: magnesium 2GM in 50ml NS 50 ML IV PRN (02:05)
[2022-02-10] MEDS ORDERED: potassium CL 10mEq/100ml bag 100 ML IV PRN (02:05)
[2022-02-10] MEDS ORDERED: POTASSIUM BICARB 20meq eff tab 20 MEQ TABLET.EFF PO PRN ×2 (02:05)
[2022-02-10] MEDS ORDERED: magnesium Cl slow-release 64mg tablet PO PRN (02:05)
[2022-02-10] MEDS: docusate sod 100mg capsule PO SCH ×2 (06:23→20:00)
[2022-02-10] MEDS ORDERED: normal saline 500ml IV soln 500 ML IV ONE (07:35)
[2022-02-10] MEDS ORDERED: enoxaparin 30mg/0.3ml syringe SUBCUT SCH (08:00)
[2022-02-10] MEDS: K and/or MAG REPLACEMENT MC SCH ×2 (08:00→20:00)
[2022-02-10 08:27] LABS: MAGNESIUM 2.6 MG/DL (1.5-2.4)
[2022-02-10 08:30] LABS: POTASSIUM 6.7 MMOL/L (3.5-5.1)
--- NOTE | 2022-02-10 08:47 | NUR ---
lovenox held for plt count of 40. called regarding K+ 6.7
[2022-02-10] MEDS ORDERED: sodium bicarbonate (8.4%) 1 mEq/ml syringe IV ONE ×3 (08:50→21:20)
[2022-02-10 09:37] LABS: BASOPHILS % (AUTO) 0.8 % (0-1); HEMATOCRIT 29.4 % (35.0-45.0); HEMOGLOBIN 9.5 g/dl (12.0-16.0); LYMPHOCYTES # (AUTO) 0.3 X10'3 (1.1-4.8); LYMPHOCYTES % (AUTO) 16.2 % (21-51); MEAN CORPUSCULAR HEMOGLOBIN 33.2 PG (27.0-31.0); MEAN CORPUSCULAR HGB CONC 32.2 g/dL (33.0-36.5); MEAN PLATELET VOLUME 8.4 FL (7.4-10.4); MONOCYTES # (AUTO) 0.1 X10'3 (0-0.9); NEUTROPHILS # (AUTO) 1.2 X10'3 (1.8-7.7); RED BLOOD COUNT 2.85 X10'6 (4.20-5.60); RED CELL DISTRIBUTION WIDTH 18.7 % (11.5-14.5); WHITE BLOOD COUNT 1.6 X10'3 (4.5-11.0)
[2022-02-10 09:53] LABS: ALANINE AMINOTRANSFERASE 28 U/L (12-78); ALBUMIN 2.9 G/DL (3.4-5.0); ALBUMIN/GLOBULIN RATIO 0.9 (1.1-1.5); ALKALINE PHOSPHATASE 150 IU/L (46-116); ANION GAP 13 (8-16); ASPARTATE AMINO TRANSFERASE 41 U/L (10-37); BILIRUBIN,TOTAL 1.2 MG/DL (0.1-1.0); BLOOD UREA NITROGEN 76 MG/DL (7-18); BUN/CREATININE RATIO 18.7 (6.6-38.0); CALCIUM 8.6 MG/DL (8.5-10.1); CHLORIDE 106 MMOL/L (99-107); CREATININE 4.06 MG/DL (0.40-0.90); GLUCOSE 260 MG/DL (70-104); SODIUM 137 MMOL/L (135-145); TOTAL CARBON DIOXIDE 17.7 MMOL/L (24-32); TOTAL PROTEIN 6.1 G/DL (6.4-8.2); eGFR 11 ML/MIN
[2022-02-10 09:54] LABS: TOTAL CELLS COUNTED 100
[2022-02-10 09:55] LABS: ACANTHOCYTES FEW; ANISOCYTOSIS 2+; ELLIPTOCYTES FEW; PLATELET ESTIMATE DECREASED; SCHISTOCYTES FEW
[2022-02-10 09:56] LABS: POTASSIUM 6.4 MMOL/L (3.5-5.1)
[2022-02-10 10:07] LABS: PLATELET COUNT 31 X10'3 (140-440)
[2022-02-10] MEDS ORDERED: normal saline 1000ml 1,000 ML IV SCH (11:45)
[2022-02-10 12:30] VITALS: BP 104/48
--- NOTE | 2022-02-10 15:19 | NUR ---
PAGER ID: [phone] MESSAGE: Yadira [phone] RE: Leatha Martinez room 4014A - her K is still elevated and other labs are not good. Can I please get orders to treat the patient. Thank you.
--- NOTE | 2022-02-10 15:19 | NUR ---
Patient came from the ER but there are no orders in the eMar to treat her. Adrianna MARMOLEJO to get orders especially to treat her hyperkalemia.
[2022-02-10] MEDS ORDERED: ALBU18HF2 INH (15:24)
--- NOTE | 2022-02-10 15:24 | NUR ---
called back and ordered a new lab draw to check on latest K levels.
--- NOTE | 2022-02-10 16:58 | NUR ---
PAGER ID: [phone] MESSAGE: [phone], Juan patients tested positive for covid at home and patient had 7-8 reported episodes of diarrhea yesterday. Can we please get a covid test ordered? cristhian [phone]
--- NOTE | 2022-02-10 17:15 | NUR ---
Daughter present at bedside and stated that patients is positive for covid, patient reports patient being sick but "getting over it". MD paged for covid test, test performed and sent to lab.
[2022-02-10 18:00] VITALS: BP 112/71
--- NOTE | 2022-02-10 18:45 | NUR ---
Called lab to check on the lab draw that was ordered. [employer] said that someone attempted twice to draw but was unsuccessful. She will come up shortly to attempt another draw.
--- NOTE | 2022-02-10 18:46 | NUR ---
Problems reprioritized. Patient report given, questions answered & plan of care reviewed with ANANYA Stubbs.
--- NOTE | 2022-02-10 18:48 | NUR ---
REPORTED TO ME THAT LABS STILL HAVE NOT BEEN DRAWN TO RECHECK THE ELEVATED K+, ABDELRAHMAN HARE TO CALL LAB TO FOLLOW UP ON THE LAB DRAW. PATIENT TESTED + FOR COVID AND IS NOW IN NEGATIVE ISOLATION FOR THIS. IS POSITIVE AT HOME WITH COVID. DAUGHTER ALSO INFORMED RN THAT SHE IS ON A FLUID REST. OF 1.5 AT HOME. NO ORDERS TO THAT AT THIS TIME BUT WILL RESTRICT FLDS.
--- NOTE | 2022-02-10 19:15 | NUR ---
LAB HERE TO DRAW LABS TO RECHECK THE K+
[2022-02-10 19:19] LABS: ALBUMIN 3.4 G/DL (3.4-5.0); ANION GAP 13 (8-16); BLOOD UREA NITROGEN 74 MG/DL (7-18); BUN/CREATININE RATIO 17.6 (6.6-38.0); CALCIUM 8.9 MG/DL (8.5-10.1); CHLORIDE 107 MMOL/L (99-107); CREATININE 4.21 MG/DL (0.40-0.90); GLUCOSE 102 MG/DL (70-104); SODIUM 139 MMOL/L (135-145); TOTAL CARBON DIOXIDE 19.2 MMOL/L (24-32); eGFR 10 ML/MIN
[2022-02-10 19:23] LABS: POTASSIUM 6.4 MMOL/L (3.5-5.1)
--- NOTE | 2022-02-10 19:37 | NUR ---
K+ LEVEL RECHECKED AND CAME BACK AT 6.[address] BAEZ AND ALSO REQUESTED A FLUID REST OF 1.5L/DAY PER DAUGHTER AND LASIX. UNKNOWN IF PATIENT HAS VOIDED, REPORTED TO ME BY ABDELRAHMAN HARE, THAT THE PATIENT HAS NOT VOIDED SINCE COMING TO THE FLOOR TO HER KNOWLEDGE. DR. BAEZ WILL REVIEW PATIENT AND PUT IN ORDERS NEEDED
[2022-02-10] MEDS ORDERED: CALCIUM GLUC 1gm/50ml NACL,iso 50 ML IV PRN (20:05)
[2022-02-10] MEDS ORDERED: sodium polystyrene sulfonate 15gm/60ml oral suspension PO ONE (20:05)
[2022-02-10 20:26] LABS: LIPASE 122 U/L (73-393); PHOSPHORUS 4.7 MG/DL (2.3-4.5)
[2022-02-10 22:00] VITALS: BP 144/65
[2022-02-10] MEDS: PATIROMER CALCIUM SORBITEX 8.4 GM POWD.PACK PO SCH (22:45)
[2022-02-11 02:00] VITALS: BP 108/83
[2022-02-11 06:00] VITALS: BP 122/60
--- NOTE | 2022-02-11 06:30 | NUR ---
Patient in room ORTHO 4018. I have received report from Evelyne and had the opportunity to ask questions and assume patient care.
--- NOTE | 2022-02-11 06:37 | NUR ---
MEDS GIVEN TO REDUCE PATIENT'S K+ LEVEL. INSULIN, KAYEXALATE, SODIUM BICARB, 50% DEXTROSE AND VELTASSA ORDERED. HAD 2 VOIDS AND DIARRHEA LAST NIGHT AND WILL RECHECK HER LABS THIS AM. REPORT TO RIGOBERTO HARE
[2022-02-11 06:38] LABS: EOSINOPHILS # (AUTO) 0.1 X10'3 (0-0.9); EOSINOPHILS % (AUTO) 2.8 % (0-6); LYMPHOCYTES # (AUTO) 0.3 X10'3 (1.1-4.8); NEUTROPHILS # (AUTO) 1.4 X10'3 (1.8-7.7); RED BLOOD COUNT 3.06 X10'6 (4.20-5.60)
[2022-02-11 06:40] LABS: BASOPHILS % (AUTO) 0.9 % (0-1); HEMATOCRIT 31.1 % (35.0-45.0); HEMOGLOBIN 10.4 g/dl (12.0-16.0); LYMPHOCYTES % (AUTO) 16.2 % (21-51); MEAN CORPUSCULAR HEMOGLOBIN 33.9 PG (27.0-31.0); MEAN CORPUSCULAR HGB CONC 33.4 g/dL (33.0-36.5); MEAN CORPUSCULAR VOLUME 101.5 FL (78-98); MEAN PLATELET VOLUME 8.4 FL (7.4-10.4); MONOCYTES # (AUTO) 0.3 X10'3 (0-0.9); MONOCYTES % (AUTO) 13.7 % (2-12); NEUTROPHILS % (AUTO) 66.4 % (42-75); RED CELL DISTRIBUTION WIDTH 17.9 % (11.5-14.5)
[2022-02-11 06:52] LABS: PLATELET COUNT 34 X10'3 (140-440)
[2022-02-11 06:56] LABS: ALANINE AMINOTRANSFERASE 33 U/L (12-78); ALBUMIN 3.2 G/DL (3.4-5.0); ALBUMIN/GLOBULIN RATIO 0.9 (1.1-1.5); ALKALINE PHOSPHATASE 158 IU/L (46-116); ANION GAP 16 (8-16); ASPARTATE AMINO TRANSFERASE 47 U/L (10-37); BILIRUBIN,TOTAL 1.6 MG/DL (0.1-1.0); BLOOD UREA NITROGEN 75 MG/DL (7-18); BUN/CREATININE RATIO 17.5 (6.6-38.0); CHLORIDE 108 MMOL/L (99-107); CREATININE 4.29 MG/DL (0.40-0.90); GLUCOSE 84 MG/DL (70-104); POTASSIUM 5.6 MMOL/L (3.5-5.1); SODIUM 144 MMOL/L (135-145); TOTAL CARBON DIOXIDE 20.5 MMOL/L (24-32); TOTAL PROTEIN 6.6 G/DL (6.4-8.2); eGFR 10 ML/MIN
--- NOTE | 2022-02-11 07:22 | NUR ---
PAGER ID: [phone] MESSAGE: Dr. Ambrose, MsEva Juan in 8443 has critical platelets of 34, potassium is at 5.6, just to advise Yesi #[phone]
[2022-02-11 07:32] LABS: PLATELET ESTIMATE DECREASED; TOTAL CELLS COUNTED 100
[2022-02-11 07:33] LABS: ACANTHOCYTES FEW; ANISOCYTOSIS 1+; ELLIPTOCYTES FEW; SCHISTOCYTES FEW
[2022-02-11] MEDS: docusate sod 100mg capsule PO SCH ×3 (08:00→19:53)
[2022-02-11] MEDS: K and/or MAG REPLACEMENT MC SCH ×2 (08:00→20:00)
[2022-02-11] MEDS ORDERED: sodium polystyrene sulfonate 15gm/60ml oral suspension PO ONE (08:25)
[2022-02-11] MEDS ORDERED: normal saline 1000ml 1,000 ML IV SCH (08:50)
[2022-02-11] MEDS: furosemide 20 MG/2 ML vial IV SCH (09:00)
[2022-02-11] MEDS: PATIROMER CALCIUM SORBITEX 8.4 GM POWD.PACK PO SCH (09:00)
[2022-02-11 10:00] VITALS: BP 111/51
[2022-02-11 14:00] VITALS: BP 127/67
[2022-02-11] MEDS: methylPREDNISolone sod succ 125mg/2ml vial IV SCH ×2 (15:35→19:24)
[2022-02-11 18:00] VITALS: BP 124/54
--- NOTE | 2022-02-11 18:18 | NUR ---
Unable to document urine for 24 hour urine as it has been mixed with stool.
--- NOTE | 2022-02-11 18:19 | NUR ---
Problems reprioritized. Patient report given, questions answered & plan of care reviewed with
--- NOTE | 2022-02-11 18:50 | NUR ---
Patient in room ORTHO 4018. I have received report from RIGOBERTO HARE and had the opportunity to ask questions and assume patient care.
[2022-02-11 22:00] VITALS: BP 151/79
--- NOTE | 2022-02-12 01:27 | NUR ---
HAVE ASSISTED PATIENT TO BSC X3 THIS SHIFT TO VOID BUT NOT ABLE TO COLLECT FOR THE 24HR URINE ORDERED D/T STOOL IN THE URINE. PATIENT CONT'S TO HAVE DIARRHEA AND ATTEMPTED TO COLLECT THE URINE USING A HAT IN THE BSC BUT HAVE NOT BEEN SUCCESSFUL WITH THIS.
[2022-02-12] MEDS: methylPREDNISolone sod succ 125mg/2ml vial IV SCH ×4 (02:56→21:35)
[2022-02-12 05:37] LABS: BASOPHILS % (AUTO) 0.1 % (0-1); EOSINOPHILS % (AUTO) 0.1 % (0-6); HEMATOCRIT 29.9 % (35.0-45.0); HEMOGLOBIN 9.9 g/dl (12.0-16.0); LYMPHOCYTES # (AUTO) 0.2 X10'3 (1.1-4.8); LYMPHOCYTES % (AUTO) 15.5 % (21-51); MEAN CORPUSCULAR HEMOGLOBIN 33.2 PG (27.0-31.0); MEAN CORPUSCULAR VOLUME 100.5 FL (78-98); MEAN PLATELET VOLUME 8.1 FL (7.4-10.4); MONOCYTES % (AUTO) 1.7 % (2-12); NEUTROPHILS # (AUTO) 1.1 X10'3 (1.8-7.7); NEUTROPHILS % (AUTO) 82.6 % (42-75); RED BLOOD COUNT 2.98 X10'6 (4.20-5.60); RED CELL DISTRIBUTION WIDTH 17.8 % (11.5-14.5); WHITE BLOOD COUNT 1.3 X10'3 (4.5-11.0)
[2022-02-12 05:41] LABS: PLATELET COUNT 31 X10'3 (140-440)
[2022-02-12 06:00] VITALS: BP 144/74
[2022-02-12 06:06] LABS: ALANINE AMINOTRANSFERASE 35 U/L (12-78); ALBUMIN 3.1 G/DL (3.4-5.0); ALBUMIN/GLOBULIN RATIO 0.9 (1.1-1.5); ALKALINE PHOSPHATASE 147 IU/L (46-116); ANION GAP 13 (8-16); ASPARTATE AMINO TRANSFERASE 49 U/L (10-37); BILIRUBIN,TOTAL 1.3 MG/DL (0.1-1.0); BLOOD UREA NITROGEN 75 MG/DL (7-18); BUN/CREATININE RATIO 17.7 (6.6-38.0); CALCIUM 8.5 MG/DL (8.5-10.1); CHLORIDE 107 MMOL/L (99-107); CREATININE 4.23 MG/DL (0.40-0.90); GLUCOSE 136 MG/DL (70-104); PHOSPHORUS 5.5 MG/DL (2.3-4.5); POTASSIUM 4.9 MMOL/L (3.5-5.1); SODIUM 140 MMOL/L (135-145); TOTAL CARBON DIOXIDE 19.6 MMOL/L (24-32); TOTAL PROTEIN 6.4 G/DL (6.4-8.2); eGFR 10 ML/MIN
[2022-02-12 06:18] LABS: ACANTHOCYTES FEW; ANISOCYTOSIS 1+; ELLIPTOCYTES FEW; PLATELET ESTIMATE DECREASED; SCHISTOCYTES FEW; TOTAL CELLS COUNTED 100
--- NOTE | 2022-02-12 06:20 | NUR ---
Problems reprioritized. Patient report given, questions answered & plan of care reviewed with ADINA HARE.
--- NOTE | 2022-02-12 06:37 | NUR ---
Patient in room ORTHO 4018. I have received report from ANANYA NICHOLE and had the opportunity to ask questions and assume patient care.
--- NOTE | 2022-02-12 06:48 | NUR ---
Problems reprioritized. Patient report given, questions answered & plan of care reviewed with ADINA HARE.
[2022-02-12] MEDS: docusate sod 100mg capsule PO SCH ×2 (08:00→20:00)
[2022-02-12] MEDS: furosemide 20 MG/2 ML vial IV SCH (08:00)
[2022-02-12] MEDS: K and/or MAG REPLACEMENT MC SCH (08:00)
[2022-02-12 10:00] VITALS: BP 136/52
[2022-02-12] MEDS: PATIROMER CALCIUM SORBITEX 8.4 GM POWD.PACK PO SCH (10:47)
[2022-02-12] MEDS: azithromycin/NS 500mg/250ml 250 ML IV SCH (10:50)
[2022-02-12 18:00] VITALS: BP 135/66
--- NOTE | 2022-02-12 18:01 | NUR ---
Problems reprioritized. Patient report given, questions answered & plan of care reviewed with ANANYA NICHOLE.
--- NOTE | 2022-02-12 18:18 | NUR ---
Problems reprioritized. Patient report given, questions answered & plan of care reviewed with ANANYA NICHOLE.
--- NOTE | 2022-02-12 18:31 | NUR ---
Patient in room ORTHO 4018. I have received report from ADINA Reyna RN and had the opportunity to ask questions and assume patient care.
[2022-02-12 22:00] VITALS: BP 123/70
[2022-02-12 23:56] LABS: UREA NITROGEN 24HR,URINE 2.1 GM/24HR (7-20)
[2022-02-13 01:19] LABS: CLARITY,URINE CLEAR (Clear); COLOR,URINE YELLOW (Yellow); GLUCOSE, URINE NEGATIVE (Neg); KETONES,URINE NEGATIVE (Neg); LEUKOCYTE ESTERASE ,URINE NEGATIVE (Neg); NITRITES, URINE NEGATIVE (Neg); OCCULT BLOOD,URINE NEGATIVE (Neg); PROTEIN,URINE NEGATIVE (Neg); UROBILINOGEN,URINE 0.2 E.U/dL (0.2-1.0)
[2022-02-13 01:20] LABS: UA COLLECTION TYPE NON-SPECIFIED
[2022-02-13 02:00] VITALS: BP 124/57
[2022-02-13 02:11] LABS: SODIUM,URINE RANDOM < 15 MEQ/L
[2022-02-13] MEDS: methylPREDNISolone sod succ 125mg/2ml vial IV SCH ×2 (02:48→11:46)
[2022-02-13 05:32] LABS: BASOPHILS % (AUTO) 0.1 % (0-1); EOSINOPHILS % (AUTO) 0 % (0-6); HEMATOCRIT 30.2 % (35.0-45.0); HEMOGLOBIN 10.1 g/dl (12.0-16.0); LYMPHOCYTES # (AUTO) 0.2 X10'3 (1.1-4.8); MEAN CORPUSCULAR HEMOGLOBIN 33.5 PG (27.0-31.0); MEAN CORPUSCULAR HGB CONC 33.6 g/dL (33.0-36.5); MEAN CORPUSCULAR VOLUME 99.6 FL (78-98); MEAN PLATELET VOLUME 8.6 FL (7.4-10.4); MONOCYTES # (AUTO) 0.1 X10'3 (0-0.9); MONOCYTES % (AUTO) 2.4 % (2-12); NEUTROPHILS # (AUTO) 2.1 X10'3 (1.8-7.7); NEUTROPHILS % (AUTO) 89.5 % (42-75); RED BLOOD COUNT 3.03 X10'6 (4.20-5.60); RED CELL DISTRIBUTION WIDTH 17.7 % (11.5-14.5); WHITE BLOOD COUNT 2.4 X10'3 (4.5-11.0)
[2022-02-13 05:35] LABS: PLATELET COUNT 34 X10'3 (140-440)
[2022-02-13 05:54] LABS: ALANINE AMINOTRANSFERASE 36 U/L (12-78); ALBUMIN 3.1 G/DL (3.4-5.0); ALBUMIN/GLOBULIN RATIO 0.9 (1.1-1.5); ALKALINE PHOSPHATASE 142 IU/L (46-116); ANION GAP 13 (8-16); ASPARTATE AMINO TRANSFERASE 43 U/L (10-37); BILIRUBIN,TOTAL 1.2 MG/DL (0.1-1.0); BLOOD UREA NITROGEN 79 MG/DL (7-18); BUN/CREATININE RATIO 19.5 (6.6-38.0); CALCIUM 8.2 MG/DL (8.5-10.1); CHLORIDE 106 MMOL/L (99-107); CREATININE 4.06 MG/DL (0.40-0.90); GLUCOSE 132 MG/DL (70-104); POTASSIUM 4.6 MMOL/L (3.5-5.1); SODIUM 139 MMOL/L (135-145); TOTAL CARBON DIOXIDE 20.4 MMOL/L (24-32); TOTAL PROTEIN 6.5 G/DL (6.4-8.2); eGFR 11 ML/MIN
[2022-02-13 06:00] VITALS: BP 126/61
[2022-02-13 06:12] LABS: ANISOCYTOSIS 1+; PLATELET ESTIMATE DECREASED; TOTAL CELLS COUNTED 100
[2022-02-13 06:13] LABS: ACANTHOCYTES FEW; ELLIPTOCYTES FEW; SCHISTOCYTES FEW
--- NOTE | 2022-02-13 06:44 | NUR ---
Problems reprioritized. Patient report given, questions answered & plan of care reviewed with ADINA NAIK RN.
--- NOTE | 2022-02-13 07:12 | NUR ---
Patient in room ORTHO 4018. I have received report from ANANYA NICHOLE and had the opportunity to ask questions and assume patient care.
[2022-02-13] MEDS: docusate sod 100mg capsule PO SCH ×3 (08:00→19:34)
[2022-02-13] MEDS: furosemide 20 MG/2 ML vial IV SCH (08:00)
[2022-02-13] MEDS: K and/or MAG REPLACEMENT MC SCH ×2 (08:00→19:32)
[2022-02-13] MEDS: PATIROMER CALCIUM SORBITEX 8.4 GM POWD.PACK PO SCH (08:00)
[2022-02-13 10:00] VITALS: BP 168/67
[2022-02-13] MEDS: azithromycin/NS 500mg/250ml 250 ML IV SCH (11:46)
[2022-02-13 18:00] VITALS: BP 161/62
--- NOTE | 2022-02-13 18:45 | NUR ---
Problems reprioritized. Patient report given, questions answered & plan of care reviewed with GOPI NGUYỄN RN.
[2022-02-13 22:00] VITALS: BP 144/68
[2022-02-14 02:00] VITALS: BP 128/61
--- NOTE | 2022-02-14 06:51 | NUR ---
Patient in room ORTHO 4018. I have received report from Clifton HARE and had the opportunity to ask questions and assume patient care.
[2022-02-14 07:02] LABS: BASOPHILS % (AUTO) 0.1 % (0-1); EOSINOPHILS % (AUTO) 0 % (0-6); HEMATOCRIT 28.4 % (35.0-45.0); HEMOGLOBIN 9.5 g/dl (12.0-16.0); LYMPHOCYTES # (AUTO) 0.2 X10'3 (1.1-4.8); LYMPHOCYTES % (AUTO) 6.5 % (21-51); MEAN CORPUSCULAR HEMOGLOBIN 33.4 PG (27.0-31.0); MEAN CORPUSCULAR HGB CONC 33.6 g/dL (33.0-36.5); MEAN CORPUSCULAR VOLUME 99.4 FL (78-98); MEAN PLATELET VOLUME 8.7 FL (7.4-10.4); MONOCYTES # (AUTO) 0.1 X10'3 (0-0.9); MONOCYTES % (AUTO) 2.6 % (2-12); NEUTROPHILS # (AUTO) 2.5 X10'3 (1.8-7.7); NEUTROPHILS % (AUTO) 90.8 % (42-75); RED BLOOD COUNT 2.86 X10'6 (4.20-5.60); RED CELL DISTRIBUTION WIDTH 17.6 % (11.5-14.5); WHITE BLOOD COUNT 2.8 X10'3 (4.5-11.0)
[2022-02-14 07:05] LABS: PLATELET COUNT 27 X10'3 (140-440)
--- NOTE | 2022-02-14 07:12 | NUR ---
PAGER ID: [phone] MESSAGE: Patient Bonnie Martinez has platelets of 27 today. Kaitlyn [phone]
[2022-02-14 07:17] LABS: ALBUMIN 2.9 G/DL (3.4-5.0); ALBUMIN/GLOBULIN RATIO 0.9 (1.1-1.5); ANION GAP 13 (8-16); ASPARTATE AMINO TRANSFERASE 44 U/L (10-37); BILIRUBIN,TOTAL 1.1 MG/DL (0.1-1.0); BLOOD UREA NITROGEN 94 MG/DL (7-18); BUN/CREATININE RATIO 24.5 (6.6-38.0); CALCIUM 8.3 MG/DL (8.5-10.1); CHLORIDE 108 MMOL/L (99-107); CREATININE 3.84 MG/DL (0.40-0.90); GLUCOSE 119 MG/DL (70-104); POTASSIUM 4.7 MMOL/L (3.5-5.1); SODIUM 140 MMOL/L (135-145); TOTAL CARBON DIOXIDE 19.3 MMOL/L (24-32); eGFR 11 ML/MIN
[2022-02-14 07:18] LABS: ALANINE AMINOTRANSFERASE 36 U/L (12-78); ALKALINE PHOSPHATASE 129 IU/L (46-116)
[2022-02-14 07:52] LABS: TOTAL CELLS COUNTED 100
[2022-02-14 07:53] LABS: ACANTHOCYTES 1+; ANISOCYTOSIS 1+; ELLIPTOCYTES FEW; PLATELET ESTIMATE DECREASED; SCHISTOCYTES FEW
[2022-02-14] MEDS: K and/or MAG REPLACEMENT MC SCH ×2 (08:00→20:00)
[2022-02-14] MEDS: azithromycin 250mg tablet PO SCH (08:32)
[2022-02-14] MEDS: docusate sod 100mg capsule PO SCH ×2 (08:32→20:00)
[2022-02-14] MEDS: furosemide 20 MG/2 ML vial IV SCH (08:32)
[2022-02-14] MEDS: predniSONE 20 mg tablet PO SCH (08:32)
[2022-02-14 10:00] VITALS: BP 139/62
--- NOTE | 2022-02-14 11:16 | NUR ---
No 0600 vitals written on form today. Supposedly they were written on window of room and the erased.
[2022-02-14] MEDS ORDERED: benzonatate 100mg capsule PO PRN (13:20)
[2022-02-14 14:00] VITALS: BP 122/60
[2022-02-14 17:08] LABS: A/G RATIO 1.1 (0.7-1.7); ALBUMIN 3.2 g/dL (2.9-4.4); BETA GLOBULIN 1.1 g/dL (0.7-1.3); GAMMA GLOBULIN 0.9 g/dL (0.4-1.8); GLOBULIN, TOTAL 2.8 g/dL (2.2-3.9); M-SPIKE Not Observed g/dL (Not Observed)
[2022-02-14 18:00] VITALS: BP 99/73
--- NOTE | 2022-02-14 18:30 | NUR ---
Patient in room ORTHO 4018. I have received report from frannie Sahni and had the opportunity to ask questions and assume patient care.
--- NOTE | 2022-02-14 18:30 | NUR ---
Patient report given to Shyann HARE
[2022-02-14 19:52] LABS: TOTAL PROTEIN,URINE RANDOM 16.9 MG/DL
[2022-02-14 19:58] LABS: SODIUM,URINE RANDOM < 15 MEQ/L
[2022-02-14 22:00] VITALS: BP 128/62
[2022-02-15 01:44] VITALS: BP 169/71
[2022-02-15 06:20] LABS: BASOPHILS % (AUTO) 0.2 % (0-1); EOSINOPHILS % (AUTO) 0.2 % (0-6); HEMATOCRIT 28.5 % (35.0-45.0); HEMOGLOBIN 9.5 g/dl (12.0-16.0); LYMPHOCYTES # (AUTO) 0.2 X10'3 (1.1-4.8); MEAN CORPUSCULAR HEMOGLOBIN 33.1 PG (27.0-31.0); MEAN CORPUSCULAR HGB CONC 33.2 g/dL (33.0-36.5); MEAN CORPUSCULAR VOLUME 99.5 FL (78-98); MEAN PLATELET VOLUME 7.9 FL (7.4-10.4); MONOCYTES # (AUTO) 0.2 X10'3 (0-0.9); MONOCYTES % (AUTO) 6.3 % (2-12); NEUTROPHILS # (AUTO) 2.7 X10'3 (1.8-7.7); NEUTROPHILS % (AUTO) 86.3 % (42-75); RED BLOOD COUNT 2.87 X10'6 (4.20-5.60); RED CELL DISTRIBUTION WIDTH 17.4 % (11.5-14.5); WHITE BLOOD COUNT 3.1 X10'3 (4.5-11.0)
[2022-02-15 06:33] LABS: PLATELET COUNT 29 X10'3 (140-440)
--- NOTE | 2022-02-15 06:35 | NUR ---
DR BAEZ NOTIFIED OF CRITICAL LAB. PLT 29. NO ORDER RECEIVED.
[2022-02-15 06:45] LABS: ALANINE AMINOTRANSFERASE 37 U/L (12-78); ALBUMIN 2.8 G/DL (3.4-5.0); ALBUMIN/GLOBULIN RATIO 0.9 (1.1-1.5); ALKALINE PHOSPHATASE 122 IU/L (46-116); ANION GAP 12 (8-16); ASPARTATE AMINO TRANSFERASE 42 U/L (10-37); BILIRUBIN,TOTAL 1.3 MG/DL (0.1-1.0); BLOOD UREA NITROGEN 105 MG/DL (7-18); BUN/CREATININE RATIO 29.5 (6.6-38.0); CALCIUM 8.1 MG/DL (8.5-10.1); CHLORIDE 108 MMOL/L (99-107); CREATININE 3.56 MG/DL (0.40-0.90); GLUCOSE 104 MG/DL (70-104); SODIUM 138 MMOL/L (135-145); TOTAL CARBON DIOXIDE 18.3 MMOL/L (24-32); TOTAL PROTEIN 5.9 G/DL (6.4-8.2); eGFR 12 ML/MIN
[2022-02-15 06:49] LABS: LACTATE DEHYDROGENASE 249 U/L (81-234); POTASSIUM 4.7 MMOL/L (3.5-5.1)
--- NOTE | 2022-02-15 07:04 | NUR ---
Patient in room ORTHO 4018. I have received report from MILLICENT HARE and had the opportunity to ask questions and assume patient care.
--- NOTE | 2022-02-15 07:55 | NUR ---
Initial: Pt admitted w/ CAREN/CKD, hyperkalemia, and Covid per EMR. Currently on Renal diet w/ avg intake 50% x 11 meals partially meeting needs. Pt could benefit from Nepro TID to assist w/ meeting needs. LBM 7/5 w/ routine colace though pt has been refusing and has been noted to be having diarrhea. Will continue to monitor. Recs: 1. Continue Renal diet as tolerated 2. Nepro TID; pending MD verification 3. Bowel care per rx 4. Weekly wts Addendum: 02/15/22 at [address] Amended: Links added.
[2022-02-15] MEDS: K and/or MAG REPLACEMENT MC SCH ×2 (08:00→20:00)
[2022-02-15] MEDS: NUT.TX.IMP.RENAL FXN,LAC-REDUC (Nepro) 237 ML VANILLA PO SCH ×3 (08:00→17:46)
[2022-02-15] MEDS: furosemide 20 MG/2 ML vial IV SCH (08:37)
[2022-02-15] MEDS: azithromycin 250mg tablet PO SCH (08:37)
[2022-02-15] MEDS: predniSONE 20 mg tablet PO SCH (08:37)
[2022-02-15] MEDS: docusate sod 100mg capsule PO SCH ×2 (08:37→21:28)
[2022-02-15 09:09] VITALS: BP 132/68
[2022-02-15 10:00] VITALS: BP 156/75
[2022-02-15 14:00] VITALS: BP 159/57
[2022-02-15] MEDS: sodium bicarbonate (8.4%) inj. 100 MEQ in dextrose 5%-water 1,000 ML IV SCH (14:34)
[2022-02-15 17:39] LABS: CLARITY,URINE CLEAR (Clear); COLOR,URINE YELLOW (Yellow); GLUCOSE, URINE NEGATIVE (Neg); KETONES,URINE NEGATIVE (Neg); LEUKOCYTE ESTERASE ,URINE SMALL (Neg); NITRITES, URINE NEGATIVE (Neg); OCCULT BLOOD,URINE TRACE-INTACT (Neg); PH,URINE 5.5 (4.8-8.0); PROTEIN,URINE NEGATIVE (Neg); UROBILINOGEN,URINE 0.2 E.U/dL (0.2-1.0)
[2022-02-15 17:46] LABS: UA COLLECTION TYPE NON-SPECIFIED
[2022-02-15 17:47] LABS: SQUAMOUS EPITHELIAL CELL,UR MODERATE /LPF (FEW)
[2022-02-15 17:48] LABS: BACTERIA,URINE 1+ /HPF (Neg); RBC,URINE 0-2 /HPF (0-2); RENAL CELLS, URINE FEW /HPF; TRANSITIONAL EPI CELLS,URINE FEW /HPF
[2022-02-15 18:00] VITALS: BP 156/64
[2022-02-15 18:05] LABS: SODIUM,URINE RANDOM < 15 MEQ/L; TOTAL PROTEIN,URINE RANDOM 13.8 MG/DL
[2022-02-15 18:07] LABS: OSMOLALITY UA 400 MOSM/K (50-1400)
--- NOTE | 2022-02-15 18:17 | NUR ---
REPORT GIVEN TO GOPI NGUYỄN RN. REPORTED NEED TO START 24 HR URINE COLLECTION, COLLECTION CONTAINER IN ANTE ROOM.
[2022-02-15 18:29] LABS: PROTEIN,TOTAL,URINE 13.3 mg/dL (Not Estab.)
--- NOTE | 2022-02-15 18:30 | NUR ---
Patient in room ORTHO 4018. I have received report from JANINE HARE and had the opportunity to ask questions and assume patient care.
[2022-02-15 22:00] VITALS: BP 154/68
[2022-02-16] VITALS (7 sets, daily range): BP systolic 131–151; BP diastolic 58–76
[2022-02-16] MEDS: sodium bicarbonate (8.4%) inj. 100 MEQ in dextrose 5%-water 1,000 ML IV SCH ×2 (01:54→14:44)
--- NOTE | 2022-02-16 06:30 | NUR ---
Problems reprioritized. Patient report given, questions answered & plan of care reviewed with RHONDA HARE.
--- NOTE | 2022-02-16 06:42 | NUR ---
Patient in room ORTHO 4018. I have received report from Vane Cifuentes RN and had the opportunity to ask questions and assume patient care.
[2022-02-16] MEDS: docusate sod 100mg capsule PO SCH ×2 (08:00→19:16)
[2022-02-16] MEDS: K and/or MAG REPLACEMENT MC SCH ×2 (08:00→19:15)
[2022-02-16] MEDS: azithromycin 250mg tablet PO SCH (09:03)
[2022-02-16] MEDS: predniSONE 20 mg tablet PO SCH (09:03)
[2022-02-16] MEDS: furosemide 20 MG/2 ML vial IV SCH (09:03)
[2022-02-16 10:30] LABS: ALBUMIN 2.8 G/DL (3.4-5.0); ANION GAP 11 (8-16); BILIRUBIN,TOTAL 1.4 MG/DL (0.1-1.0); BLOOD UREA NITROGEN 102 MG/DL (7-18); CALCIUM 8.1 MG/DL (8.5-10.1); CHLORIDE 105 MMOL/L (99-107); CREATININE 3.29 MG/DL (0.40-0.90); GLUCOSE 158 MG/DL (70-104); POTASSIUM 3.7 MMOL/L (3.5-5.1); SODIUM 140 MMOL/L (135-145); TOTAL CARBON DIOXIDE 24.3 MMOL/L (24-32); TOTAL PROTEIN 5.8 G/DL (6.4-8.2); eGFR 13 ML/MIN
[2022-02-16 10:31] LABS: ALANINE AMINOTRANSFERASE 52 U/L (12-78); ALBUMIN/GLOBULIN RATIO 0.9 (1.1-1.5); ALKALINE PHOSPHATASE 131 IU/L (46-116); ASPARTATE AMINO TRANSFERASE 51 U/L (10-37)
[2022-02-16] MEDS: NUT.TX.IMP.RENAL FXN,LAC-REDUC (Nepro) 237 ML VANILLA PO SCH ×2 (13:38→17:49)
--- NOTE | 2022-02-16 18:11 | NUR ---
Problems reprioritized. Patient report given, questions answered & plan of care reviewed with Mitzy HARE.
--- NOTE | 2022-02-16 18:38 | NUR ---
Patient in room ORTHO 4018. I have received report from Kaila HARE and had the opportunity to ask questions and assume patient care.
[2022-02-16] MEDS: acetaminophen 325mg tablet PO PRN (23:24)
[2022-02-17] MEDS: sodium bicarbonate (8.4%) inj. 100 MEQ in dextrose 5%-water 1,000 ML IV SCH (01:29)
--- NOTE | 2022-02-17 01:50 | NUR ---
Patients IV infiltrated and patients left arm is swollen, red and painful. Warm compress applied and elevated arm. Pain medication given.
[2022-02-17 06:00] VITALS: BP 145/68
--- NOTE | 2022-02-17 06:35 | NUR ---
Problems reprioritized. Patient report given, questions answered & plan of care reviewed with Kaila HARE.
--- NOTE | 2022-02-17 06:37 | NUR ---
Patient in room ORTHO 4018. I have received report from Mitzy HARE and had the opportunity to ask questions and assume patient care.
[2022-02-17 07:28] LABS: ALANINE AMINOTRANSFERASE 62 U/L (12-78); ALBUMIN 2.9 G/DL (3.4-5.0); ALKALINE PHOSPHATASE 132 IU/L (46-116); ANION GAP 11 (8-16); ASPARTATE AMINO TRANSFERASE 58 U/L (10-37); BLOOD UREA NITROGEN 98 MG/DL (7-18); BUN/CREATININE RATIO 34.5 (6.6-38.0); CALCIUM 8.4 MG/DL (8.5-10.1); CHLORIDE 104 MMOL/L (99-107); CREATININE 2.84 MG/DL (0.40-0.90); GLUCOSE 123 MG/DL (70-104); POTASSIUM 3.6 MMOL/L (3.5-5.1); SODIUM 141 MMOL/L (135-145); TOTAL CARBON DIOXIDE 26.3 MMOL/L (24-32); TOTAL PROTEIN 5.9 G/DL (6.4-8.2); eGFR 16 ML/MIN
[2022-02-17] MEDS: docusate sod 100mg capsule PO SCH ×2 (08:00→19:06)
[2022-02-17] MEDS: NUT.TX.IMP.RENAL FXN,LAC-REDUC (Nepro) 237 ML VANILLA PO SCH ×3 (08:00→17:43)
[2022-02-17] MEDS: predniSONE 20 mg tablet PO SCH (08:30)
[2022-02-17] MEDS: HYDROcodone/acetaminophen 5mg/325mg tablet PO PRN ×2 (08:43→16:12)
[2022-02-17 10:00] VITALS: BP 136/44
[2022-02-17] MEDS ORDERED: albuterol 2.5 MG/3 ML nebule NEB PRN (10:50)
--- NOTE | 2022-02-17 11:57 | NUR ---
Message: Kaila [phone] re Leatha Martinez in 4017. Pt's iv infiltrated last night with bicarb ivf and it is very edematous and red which is growing and going past the marked line.
[2022-02-17 14:00] VITALS: BP 106/37
[2022-02-17] MEDS: gabapentin 100mg capsule PO SCH ×2 (14:00→16:12)
[2022-02-17] MEDS: atorvastatin 10mg tablet PO SCH (16:11)
[2022-02-17] MEDS: aspirin 81mg, enteric-coated 1 TAB TABLET.DR PO SCH (16:11)
[2022-02-17] MEDS: levoTHYROXINE 25mcg tablet PO SCH (16:11)
[2022-02-17] MEDS: pantoprazole 40mg Tablet.DR PO SCH (16:12)
--- NOTE | 2022-02-17 16:24 | NUR ---
Message: Kaila [phone] re Leatha Martinez in 4017. Pt's doppler negative for DVT and procalcitonin was 0.10. Arm is extremely painful and getting more red and edematous.
[2022-02-17 18:00] VITALS: BP 108/51
--- NOTE | 2022-02-17 18:21 | NUR ---
Problems reprioritized. Patient report given, questions answered & plan of care reviewed with Mitzy HARE.
[2022-02-17] MEDS: piperacillin/tazo 3.375gm/50ml 50 ML IV SCH (19:05)
[2022-02-17] MEDS: linezolid 600mg/300ml PREMIX 300 ML IV SCH (19:05)
[2022-02-17] MEDS: lactobacillus rhamnosus 10,000 MMU CELLS/CAPSULE PO SCH (19:05)
[2022-02-17] MEDS ORDERED: linezolid 600mg tablet PO SCH (20:00)
[2022-02-17] MEDS ORDERED: gabapentin 300mg capsule PO SCH (21:00)
[2022-02-17 22:00] VITALS: BP 102/53
[2022-02-18] VITALS (11 sets, daily range): BP systolic 89–130; BP diastolic 27–48
[2022-02-18] MEDS: piperacillin/tazo 3.375gm/50ml 50 ML IV SCH ×3 (00:11→22:11)
--- NOTE | 2022-02-18 02:40 | NUR ---
Patients left arm from infiltrated IV is swollen and red/purple, severe pitting edema and draining serous fluid. Pulse palpable. Elevating on pillows and applying warm compresses. Patients right arm increased bruising and pitting edema from previous night. Called ICU charge for recommendations for care. MD called and orders received for labs. Attempted multiple times but unable to obtain blood at this time for labs. Lab aware and will come when first available. Will continue to monitor swelling and bruising.
[2022-02-18 06:04] LABS: BASOPHILS % (AUTO) 0.2 % (0-1); EOSINOPHILS % (AUTO) 0.1 % (0-6); HEMATOCRIT 26.6 % (35.0-45.0); HEMOGLOBIN 9.1 g/dl (12.0-16.0); LYMPHOCYTES # (AUTO) 0.3 X10'3 (1.1-4.8); LYMPHOCYTES % (AUTO) 5.6 % (21-51); MEAN CORPUSCULAR HEMOGLOBIN 33.8 PG (27.0-31.0); MEAN CORPUSCULAR HGB CONC 34.2 g/dL (33.0-36.5); MEAN CORPUSCULAR VOLUME 98.8 FL (78-98); MEAN PLATELET VOLUME 8.8 FL (7.4-10.4); MONOCYTES # (AUTO) 0.2 X10'3 (0-0.9); MONOCYTES % (AUTO) 3.9 % (2-12); NEUTROPHILS # (AUTO) 4.9 X10'3 (1.8-7.7); NEUTROPHILS % (AUTO) 90.2 % (42-75); RED BLOOD COUNT 2.69 X10'6 (4.20-5.60); RED CELL DISTRIBUTION WIDTH 17.2 % (11.5-14.5); WHITE BLOOD COUNT 5.4 X10'3 (4.5-11.0)
[2022-02-18 06:18] LABS: D-DIMER 8.93 MG/L FEU (0-0.50)
[2022-02-18 06:19] LABS: PLATELET COUNT 17 X10'3 (140-440)
[2022-02-18 06:24] LABS: ALANINE AMINOTRANSFERASE 48 U/L (12-78); ALBUMIN 2.2 G/DL (3.4-5.0); ALBUMIN/GLOBULIN RATIO 0.8 (1.1-1.5); ALKALINE PHOSPHATASE 86 IU/L (46-116); ANION GAP 14 (8-16); ASPARTATE AMINO TRANSFERASE 47 U/L (10-37); BILIRUBIN,TOTAL 2.1 MG/DL (0.1-1.0); BLOOD UREA NITROGEN 115 MG/DL (7-18); BUN/CREATININE RATIO 33.1 (6.6-38.0); C-REACTIVE PROTEIN 9.16 MG/DL (0.0-0.5); CALCIUM 8.1 MG/DL (8.5-10.1); CHLORIDE 102 MMOL/L (99-107); CREATININE 3.47 MG/DL (0.40-0.90); GLUCOSE 91 MG/DL (70-104); LACTATE DEHYDROGENASE 203 U/L (81-234); MAGNESIUM 2.3 MG/DL (1.5-2.4); PHOSPHORUS 4.6 MG/DL (2.3-4.5); POTASSIUM 4.3 MMOL/L (3.5-5.1); SODIUM 140 MMOL/L (135-145); TOTAL CARBON DIOXIDE 24.2 MMOL/L (24-32); TOTAL PROTEIN 4.8 G/DL (6.4-8.2); eGFR 13 ML/MIN
--- NOTE | 2022-02-18 06:45 | NUR ---
Patient in room ORTHO 4018. I have received report from [facility] and had the opportunity to ask questions and assume patient care.
[2022-02-18 06:53] LABS: TOTAL CELLS COUNTED 100
[2022-02-18 06:54] LABS: ANISOCYTOSIS 1+; ELLIPTOCYTES FEW; PLATELET ESTIMATE DECREASED; POIKILOCYTOSIS 1+
--- NOTE | 2022-02-18 06:57 | NUR ---
Bedside report given with Yesi HARE.
--- NOTE | 2022-02-18 07:45 | NUR ---
Dr. Donna Martinez in 4017 critical platelets of 17, CRP 9.6, both arms swollen and discolored Yesi, ortho [phone]
[2022-02-18] MEDS: docusate sod 100mg capsule PO SCH ×2 (08:00→21:05)
[2022-02-18] MEDS: NUT.TX.IMP.RENAL FXN,LAC-REDUC (Nepro) 237 ML VANILLA PO SCH ×3 (08:00→18:00)
[2022-02-18] MEDS: atorvastatin 10mg tablet PO SCH (10:17)
[2022-02-18] MEDS: lactobacillus rhamnosus 10,000 MMU CELLS/CAPSULE PO SCH ×2 (10:17→22:11)
[2022-02-18] MEDS: aspirin 81mg, enteric-coated 1 TAB TABLET.DR PO SCH (10:17)
[2022-02-18] MEDS: gabapentin 100mg capsule PO SCH ×2 (10:17→22:12)
[2022-02-18] MEDS: levoTHYROXINE 25mcg tablet PO SCH (10:18)
[2022-02-18] MEDS: predniSONE 20 mg tablet PO SCH (10:18)
--- NOTE | 2022-02-18 10:57 | NUR ---
Dr. Thompson for Mrs. Martinez in 9157, blood bank would like to know if irradiated platelets should be used per past hx of cancer, will need to get from [facility]. Please advise Yesi [phone] Addendum: 02/18/22 at 1058 by Yesi Dior RN Call back from Dr. Thompson, regular platelets are okay
--- NOTE | 2022-02-18 11:13 | NUR ---
Reassessment: PO intake seems to have declined, previously with roughly 50% PO intake however down to 0-25% PO intake since dinner 02/16. Pending documentation of meal intake for today. Pt now receiving a Nepro TID of which pt has been mostly refusing, however did consume 100% of ONS this morning per EMR. Noted pt receiving routine Linezolid. Pt remains in airborne precautions, low tyramine nutrition therapy education deferred at this time. LBM 02/16, with routine bowel care available though not given d/t not being needed per EMR. Will continue to follow closely. Recommendations: 1. Continue renal diet 2. Nepro TIDWM 3. Bowel care per rx 4. Weekly scaled wts Addendum: 02/18/22 at [address] Amended: Links added.
[2022-02-18] MEDS: pantoprazole 40mg Tablet.DR PO SCH (12:06)
[2022-02-18] MEDS: linezolid 600mg/300ml PREMIX 300 ML IV SCH ×2 (12:06→22:11)
[2022-02-18] MEDS ORDERED: normal saline 1000ml 100 ML IV PRN (13:20)
[2022-02-18] MEDS ORDERED: mannitol 12.5gm/50mL VIAL IV ONE (13:20)
[2022-02-18] MEDS ORDERED: heparin 1,000 units/ml 10ml inj HE ONE ×2 (13:25→14:05)
[2022-02-18] MEDS ORDERED: heparin, porcine 5000 units/ml vial SQ ONE (13:30)
--- NOTE | 2022-02-18 18:45 | NUR ---
Patient in room ORTHO 4018. I have received report from ANANYA Key and had the opportunity to ask questions and assume patient care.
--- NOTE | 2022-02-18 19:00 | NUR ---
Problems reprioritized. Patient report given, questions answered & plan of care reviewed with Debbi.
[2022-02-18] MEDS: acetaminophen 325mg tablet PO PRN (22:12)
[2022-02-19] VITALS (9 sets, daily range): BP systolic 94–105; BP diastolic 28–52
[2022-02-19 03:20] LABS: OCCULT BLOOD STOOL POSITIVE (Neg)
--- NOTE | 2022-02-19 06:13 | NUR ---
Problems reprioritized. Patient report given, questions answered & plan of care reviewed with ANANYA Noble.
--- NOTE | 2022-02-19 06:15 | NUR ---
Patient in room ORTHO 4018. I have received report from liza kathleen and had the opportunity to ask questions and assume patient care.
[2022-02-19 06:55] LABS: BASOPHILS % (AUTO) 0.1 % (0-1); EOSINOPHILS % (AUTO) 0 % (0-6); HEMATOCRIT 22.5 % (35.0-45.0); HEMOGLOBIN 7.6 g/dl (12.0-16.0); LYMPHOCYTES # (AUTO) 0.3 X10'3 (1.1-4.8); LYMPHOCYTES % (AUTO) 5.4 % (21-51); MEAN CORPUSCULAR HEMOGLOBIN 33.3 PG (27.0-31.0); MEAN CORPUSCULAR HGB CONC 33.7 g/dL (33.0-36.5); MEAN CORPUSCULAR VOLUME 98.8 FL (78-98); MEAN PLATELET VOLUME 9.4 FL (7.4-10.4); MONOCYTES # (AUTO) 0.2 X10'3 (0-0.9); MONOCYTES % (AUTO) 3.9 % (2-12); NEUTROPHILS % (AUTO) 90.6 % (42-75); RED BLOOD COUNT 2.28 X10'6 (4.20-5.60); RED CELL DISTRIBUTION WIDTH 17.1 % (11.5-14.5); WHITE BLOOD COUNT 5.5 X10'3 (4.5-11.0)
[2022-02-19 07:01] LABS: D-DIMER 5.87 MG/L FEU (0-0.50)
[2022-02-19 07:11] LABS: ALANINE AMINOTRANSFERASE 81 U/L (12-78); ALBUMIN 2.2 G/DL (3.4-5.0); ALBUMIN/GLOBULIN RATIO 0.8 (1.1-1.5); ALKALINE PHOSPHATASE 106 IU/L (46-116); ANION GAP 11 (8-16); ASPARTATE AMINO TRANSFERASE 72 U/L (10-37); BILIRUBIN,TOTAL 2.6 MG/DL (0.1-1.0); BLOOD UREA NITROGEN 64 MG/DL (7-18); BUN/CREATININE RATIO 25.5 (6.6-38.0); C-REACTIVE PROTEIN 12.92 MG/DL (0.0-0.5); CHLORIDE 102 MMOL/L (99-107); CREATININE 2.51 MG/DL (0.40-0.90); GLUCOSE 93 MG/DL (70-104); LACTATE DEHYDROGENASE 217 U/L (81-234); PHOSPHORUS 3.7 MG/DL (2.3-4.5); POTASSIUM 3.8 MMOL/L (3.5-5.1); SODIUM 140 MMOL/L (135-145); TOTAL CARBON DIOXIDE 27.1 MMOL/L (24-32); TOTAL PROTEIN 4.9 G/DL (6.4-8.2); eGFR 18 ML/MIN
[2022-02-19 07:19] LABS: PLATELET COUNT 46 X10'3 (140-440)
[2022-02-19] MEDS: docusate sod 100mg capsule PO SCH ×2 (08:00→19:11)
[2022-02-19] MEDS: linezolid 600mg/300ml PREMIX 300 ML IV SCH ×3 (08:00→13:27)
[2022-02-19] MEDS ORDERED: EPOETIN ALFA-EPBX 20,000 UNIT/ML 1 ML MDV IV ONE (08:00)
[2022-02-19] MEDS ORDERED: normal saline 1000ml 100 ML IV PRN (08:00)
[2022-02-19] MEDS ORDERED: mannitol 12.5gm/50mL VIAL IV PRN (08:00)
[2022-02-19] MEDS ORDERED: heparin 1,000 units/ml 10ml inj HE ONE ×2 (08:00)
[2022-02-19] MEDS ORDERED: normal saline 1000ml 250 ML IV PRN (08:00)
[2022-02-19] MEDS: aspirin 81mg, enteric-coated 1 TAB TABLET.DR PO SCH (08:50)
[2022-02-19] MEDS: pantoprazole 40mg Tablet.DR PO SCH (08:50)
[2022-02-19] MEDS: lactobacillus rhamnosus 10,000 MMU CELLS/CAPSULE PO SCH ×2 (08:50→19:13)
[2022-02-19] MEDS: levoTHYROXINE 25mcg tablet PO SCH (08:50)
[2022-02-19] MEDS: piperacillin/tazo 3.375gm/50ml 50 ML IV SCH ×2 (08:50→19:12)
[2022-02-19] MEDS: NUT.TX.IMP.RENAL FXN,LAC-REDUC (Nepro) 237 ML VANILLA PO SCH ×3 (08:50→18:00)
[2022-02-19] MEDS: predniSONE 20 mg tablet PO SCH (08:50)
[2022-02-19] MEDS: atorvastatin 10mg tablet PO SCH (08:50)
--- NOTE | 2022-02-19 09:40 | NUR ---
CALLED AND SPOKE TO NEIL IN PHARMACY REQUESTING ZYVOX DOSE THAT WAS DUE AT 0800. (PAGE HAD ALREADY BEEN SENT @ 0845 REQUESTING MED) NEIL STATED IT IS READY HOWEVER SHE DOES NOT HAVE SOMEONE TO BRING IT. I STATED WE ARE UNDERSTAFFED AND OUT OF RATION COMPLIANCE, I CAN NOT LEAVE THE FLOOR TO RETRIEVE.
[2022-02-19] MEDS ORDERED: albumin (human) 25% 100ml IV 200 ML IV PRN (12:20)
--- NOTE | 2022-02-19 15:38 | NUR ---
Message: DYLAN GRAJEDA 6438. CURRENT BP POST DIALYSIS IS 89/30 HR 60. SHE IS ASYMPTOMATIC. PLEASE ADVISE IF YOU WOULD LIKE TO TREAT THE BP. THANK YOU, JANINE HARE
[2022-02-19] MEDS ORDERED: linezolid 600mg/300ml PREMIX 300 ML IV ONE ×2 (16:00→22:00)
[2022-02-19] MEDS: gabapentin 100mg capsule PO SCH (19:11)
[2022-02-19] MEDS: HYDROcodone/acetaminophen 5mg/325mg tablet PO PRN (22:18)
--- NOTE | 2022-02-20 06:32 | NUR ---
Patient in room ORTHO 4018. I have received report from MILLICENT HARE and had the opportunity to ask questions and assume patient care.
--- NOTE | 2022-02-20 06:38 | NUR ---
Problems reprioritized. Patient report given, questions answered & plan of care reviewed with ANANYA MEHTA.
--- NOTE | 2022-02-20 07:00 | NUR ---
Problems reprioritized. Patient report given, questions answered & plan of care reviewed with CARLOS HARE. NO CARE PROVIDED PRIOR TO HANDOFF
--- NOTE | 2022-02-20 07:53 | NUR ---
Patient in room ORTHO 4018. I have received report from rebecca kathleen and had the opportunity to ask questions and assume patient care.
[2022-02-20] MEDS: docusate sod 100mg capsule PO SCH ×2 (08:00→20:00)
[2022-02-20] MEDS: lactobacillus rhamnosus 10,000 MMU CELLS/CAPSULE PO SCH ×2 (08:54→19:49)
[2022-02-20] MEDS: NUT.TX.IMP.RENAL FXN,LAC-REDUC (Nepro) 237 ML VANILLA PO SCH ×3 (08:55→18:04)
[2022-02-20] MEDS: pantoprazole 40mg Tablet.DR PO SCH (08:55)
[2022-02-20] MEDS: prednisone 10mg tablet PO SCH (08:55)
[2022-02-20] MEDS: levoTHYROXINE 25mcg tablet PO SCH (08:55)
[2022-02-20] MEDS: atorvastatin 10mg tablet PO SCH (08:55)
[2022-02-20] MEDS: piperacillin/tazo 3.375gm/50ml 50 ML IV SCH ×2 (09:02→19:48)
[2022-02-20 10:00] VITALS: BP 93/39
[2022-02-20 11:34] LABS: BASOPHILS % (AUTO) 0.2 % (0-1); EOSINOPHILS % (AUTO) 0.2 % (0-6); HEMOGLOBIN 8.8 g/dl (12.0-16.0); LYMPHOCYTES # (AUTO) 0.2 X10'3 (1.1-4.8); LYMPHOCYTES % (AUTO) 2.9 % (21-51); MEAN CORPUSCULAR HEMOGLOBIN 32.7 PG (27.0-31.0); MEAN CORPUSCULAR HGB CONC 33.9 g/dL (33.0-36.5); MEAN CORPUSCULAR VOLUME 96.5 FL (78-98); MEAN PLATELET VOLUME 9.5 FL (7.4-10.4); MONOCYTES # (AUTO) 0.1 X10'3 (0-0.9); MONOCYTES % (AUTO) 1.5 % (2-12); NEUTROPHILS # (AUTO) 6.5 X10'3 (1.8-7.7); NEUTROPHILS % (AUTO) 95.2 % (42-75); RED CELL DISTRIBUTION WIDTH 18.1 % (11.5-14.5); WHITE BLOOD COUNT 6.8 X10'3 (4.5-11.0)
[2022-02-20 11:43] LABS: PLATELET COUNT 40 X10'3 (140-440)
[2022-02-20 11:50] LABS: ALANINE AMINOTRANSFERASE 73 U/L (12-78); ALBUMIN 2.1 G/DL (3.4-5.0); ALBUMIN/GLOBULIN RATIO 0.7 (1.1-1.5); ALKALINE PHOSPHATASE 112 IU/L (46-116); ANION GAP 10 (8-16); ASPARTATE AMINO TRANSFERASE 54 U/L (10-37); BILIRUBIN,TOTAL 2.7 MG/DL (0.1-1.0); BLOOD UREA NITROGEN 45 MG/DL (7-18); BUN/CREATININE RATIO 19.7 (6.6-38.0); C-REACTIVE PROTEIN 12.74 MG/DL (0.0-0.5); CALCIUM 7.9 MG/DL (8.5-10.1); CHLORIDE 99 MMOL/L (99-107); CREATININE 2.29 MG/DL (0.40-0.90); GLUCOSE 157 MG/DL (70-104); LACTATE DEHYDROGENASE 206 U/L (81-234); PHOSPHORUS 2.8 MG/DL (2.3-4.5); POTASSIUM 3.4 MMOL/L (3.5-5.1); SODIUM 134 MMOL/L (135-145); TOTAL CARBON DIOXIDE 24.8 MMOL/L (24-32); TOTAL PROTEIN 5.2 G/DL (6.4-8.2); eGFR 20 ML/MIN
[2022-02-20 11:55] LABS: D-DIMER 4.49 MG/L FEU (0-0.50)
--- NOTE | 2022-02-20 12:05 | NUR ---
Page Accepted Message: [phone] Juan, pt PLT are 40 and K 3.4. do you want me to replace K per protocol? dhiraj [phone]
--- NOTE | 2022-02-20 12:13 | NUR ---
talked to wound care nurse, they stated that letting the leg and arm drain to a chucks is fine instead of having it wrapped. will change roel frequently and keep it clean.
--- NOTE | 2022-02-20 13:12 | NUR ---
talked to Dr. Saldana about pts K, dialysis nurse will regulate this.
--- NOTE | 2022-02-20 13:15 | NUR ---
talked to dialysis nurse for today. that dr muniz wants pt t have a 4 potassium bathe, she said she would pass that on to the dialysis nurse marcin.
--- NOTE | 2022-02-20 14:04 | NUR ---
Page Accepted Message: [phone] iman spence said that pt can come off of isolation as of now. dhiraj [phone]
--- NOTE | 2022-02-20 14:14 | NUR ---
Page Accepted Message: [phone] jordy, correction by iman, pt is actually ready tonight at midnight to be off isolation.
[2022-02-20 18:00] VITALS: BP 108/43
[2022-02-20] MEDS: gabapentin 100mg capsule PO SCH (19:48)
[2022-02-20 22:00] VITALS: BP 115/40
[2022-02-21] MEDS: linezolid 600mg/300ml PREMIX 300 ML IV SCH ×2 (00:05→15:23)
--- NOTE | 2022-02-21 02:51 | NUR ---
DR. BAEZ NOTIFIED OF POSITIVE BLOOD CULTURE. G POS COCCI AND CLUSTERS IN AEROBIC BOTTLE. NO NEW ORDER RECEIVED.
[2022-02-21 05:56] LABS: BASOPHILS % (AUTO) 0.1 % (0-1); EOSINOPHILS # (AUTO) 0.1 X10'3 (0-0.9); EOSINOPHILS % (AUTO) 1.4 % (0-6); LYMPHOCYTES # (AUTO) 0.3 X10'3 (1.1-4.8); LYMPHOCYTES % (AUTO) 4.5 % (21-51); MEAN CORPUSCULAR HEMOGLOBIN 33.6 PG (27.0-31.0); MEAN CORPUSCULAR HGB CONC 34.7 g/dL (33.0-36.5); MEAN CORPUSCULAR VOLUME 96.8 FL (78-98); MONOCYTES # (AUTO) 0.2 X10'3 (0-0.9); MONOCYTES % (AUTO) 4.2 % (2-12); NEUTROPHILS % (AUTO) 89.8 % (42-75); RED BLOOD COUNT 2.68 X10'6 (4.20-5.60); RED CELL DISTRIBUTION WIDTH 17.5 % (11.5-14.5); WHITE BLOOD COUNT 5.6 X10'3 (4.5-11.0)
[2022-02-21 06:00] VITALS: BP 99/35
--- NOTE | 2022-02-21 06:15 | NUR ---
Patient in room ORTHO 4018. I have received report from Shyann and had the opportunity to ask questions and assume patient care.
[2022-02-21 06:59] LABS: ALANINE AMINOTRANSFERASE 81 U/L (12-78); ALBUMIN 2.2 G/DL (3.4-5.0); ALBUMIN/GLOBULIN RATIO 0.7 (1.1-1.5); ALKALINE PHOSPHATASE 171 IU/L (46-116); ANION GAP 8 (8-16); ASPARTATE AMINO TRANSFERASE 60 U/L (10-37); BILIRUBIN,TOTAL 2.1 MG/DL (0.1-1.0); BLOOD UREA NITROGEN 58 MG/DL (7-18); BUN/CREATININE RATIO 20.4 (6.6-38.0); C-REACTIVE PROTEIN 11.69 MG/DL (0.0-0.5); CHLORIDE 98 MMOL/L (99-107); CREATININE 2.85 MG/DL (0.40-0.90); D-DIMER 3.67 MG/L FEU (0-0.50); GLUCOSE 99 MG/DL (70-104); LACTATE DEHYDROGENASE 216 U/L (81-234); MAGNESIUM 2.2 MG/DL (1.5-2.4); POTASSIUM 3.4 MMOL/L (3.5-5.1); SODIUM 133 MMOL/L (135-145); TOTAL PROTEIN 5.4 G/DL (6.4-8.2); eGFR 16 ML/MIN
[2022-02-21 07:04] LABS: PLATELET COUNT 37 X10'3 (140-440)
--- NOTE | 2022-02-21 07:42 | NUR ---
Reassessment: Pt continues on Renal diet w/ low PO intake, mostly 25% of meals, is also consuming ~55% of ONS; still only partially meeting est nutrient needs. Given inadequate intake for ~5 days and severe edema, pt meets minimum criteria for malnutrition. Pt continues on HD, last treatment 02/19 w/ 1L out per documentation. Fluid is hard to take off despite the edema per Nephrology note. LBM 02/20. Consider supplemental TF if PO does not improve. Will continue to monitor. Recommendations: 1. Continue renal diet 2. Nepro TIDWM 3. Bowel care per rx 4. Scaled wts w/ HD 5. Consider supplemental TF if PO does not improve and within POC Addendum: 02/21/22 at [address] Amended: Links added.
[2022-02-21] MEDS ORDERED: EPOETIN ALFA-EPBX 20,000 UNIT/ML 1 ML MDV IV ONE (08:00)
[2022-02-21] MEDS ORDERED: albumin (human) 25% 100ml IV 100 ML IV PRN (08:00)
[2022-02-21] MEDS ORDERED: normal saline 1000ml 100 ML IV PRN (08:00)
[2022-02-21] MEDS: docusate sod 100mg capsule PO SCH ×2 (08:00→20:00)
[2022-02-21] MEDS: piperacillin/tazo 3.375gm/50ml 50 ML IV SCH ×2 (08:41→20:09)
[2022-02-21] MEDS: NUT.TX.IMP.RENAL FXN,LAC-REDUC (Nepro) 237 ML VANILLA PO SCH ×3 (08:42→18:03)
[2022-02-21] MEDS: lactobacillus rhamnosus 10,000 MMU CELLS/CAPSULE PO SCH ×2 (08:42→20:07)
[2022-02-21] MEDS: atorvastatin 10mg tablet PO SCH (08:42)
[2022-02-21] MEDS: pantoprazole 40mg Tablet.DR PO SCH (08:43)
[2022-02-21] MEDS: prednisone 10mg tablet PO SCH (08:43)
[2022-02-21] MEDS: levoTHYROXINE 25mcg tablet PO SCH (08:43)
[2022-02-21 10:00] VITALS: BP 102/39
[2022-02-21 10:14] LABS: HBSAG SCREEN Negative (Negative)
[2022-02-21 14:00] VITALS: BP 98/43
[2022-02-21 18:00] VITALS: BP 107/37
--- NOTE | 2022-02-21 18:26 | NUR ---
Problems reprioritized. Patient report given, questions answered & plan of care reviewed with
[2022-02-21] MEDS: gabapentin 100mg capsule PO SCH (20:08)
[2022-02-21 22:00] VITALS: BP 127/48
[2022-02-22] VITALS (12 sets, daily range): BP systolic 92–125; BP diastolic 34–61
[2022-02-22] MEDS: HYDROcodone/acetaminophen 5mg/325mg tablet PO PRN (00:37)
[2022-02-22] MEDS: linezolid 600mg/300ml PREMIX 300 ML IV SCH (00:38)
--- NOTE | 2022-02-22 06:25 | NUR ---
Patient in room ORTHO 4016. I have received report from Shyann and had the opportunity to ask questions and assume patient care.
[2022-02-22 06:27] LABS: BASOPHILS % (AUTO) 0.3 % (0-1); EOSINOPHILS # (AUTO) 0.1 X10'3 (0-0.9); EOSINOPHILS % (AUTO) 1.9 % (0-6); HEMATOCRIT 24.5 % (35.0-45.0); HEMOGLOBIN 8.5 g/dl (12.0-16.0); LYMPHOCYTES # (AUTO) 0.3 X10'3 (1.1-4.8); MEAN CORPUSCULAR HEMOGLOBIN 33.3 PG (27.0-31.0); MEAN CORPUSCULAR HGB CONC 34.6 g/dL (33.0-36.5); MEAN CORPUSCULAR VOLUME 96.2 FL (78-98); MEAN PLATELET VOLUME 8.8 FL (7.4-10.4); MONOCYTES # (AUTO) 0.2 X10'3 (0-0.9); MONOCYTES % (AUTO) 5.5 % (2-12); NEUTROPHILS # (AUTO) 2.3 X10'3 (1.8-7.7); NEUTROPHILS % (AUTO) 83.3 % (42-75); RED BLOOD COUNT 2.55 X10'6 (4.20-5.60); RED CELL DISTRIBUTION WIDTH 17.5 % (11.5-14.5); WHITE BLOOD COUNT 2.8 X10'3 (4.5-11.0)
[2022-02-22 06:32] LABS: PLATELET COUNT 30 X10'3 (140-440)
--- NOTE | 2022-02-22 06:39 | NUR ---
Problems reprioritized. Patient report given, questions answered & plan of care reviewed with ANANYA FRANKLIN.
[2022-02-22 06:44] LABS: ALANINE AMINOTRANSFERASE 78 U/L (12-78); ALBUMIN 2.5 G/DL (3.4-5.0); ALBUMIN/GLOBULIN RATIO 0.8 (1.1-1.5); ALKALINE PHOSPHATASE 172 IU/L (46-116); ANION GAP 6 (8-16); ASPARTATE AMINO TRANSFERASE 62 U/L (10-37); BILIRUBIN,TOTAL 2.9 MG/DL (0.1-1.0); BLOOD UREA NITROGEN 40 MG/DL (7-18); BUN/CREATININE RATIO 16.3 (6.6-38.0); C-REACTIVE PROTEIN 8.68 MG/DL (0.0-0.5); CALCIUM 7.9 MG/DL (8.5-10.1); CHLORIDE 99 MMOL/L (99-107); CREATININE 2.45 MG/DL (0.40-0.90); GLUCOSE 94 MG/DL (70-104); LACTATE DEHYDROGENASE 212 U/L (81-234); MAGNESIUM 1.8 MG/DL (1.5-2.4); PHOSPHORUS 2.7 MG/DL (2.3-4.5); POTASSIUM 3.5 MMOL/L (3.5-5.1); SODIUM 134 MMOL/L (135-145); TOTAL CARBON DIOXIDE 28.6 MMOL/L (24-32); TOTAL PROTEIN 5.6 G/DL (6.4-8.2); eGFR 19 ML/MIN
[2022-02-22 06:46] LABS: D-DIMER 4.55 MG/L FEU (0-0.50)
[2022-02-22 07:14] LABS: PLATELET ESTIMATE DECREASED; TOTAL CELLS COUNTED 100
[2022-02-22 07:15] LABS: ANISOCYTOSIS 1+; POIKILOCYTOSIS 1+
[2022-02-22] MEDS: docusate sod 100mg capsule PO SCH ×2 (08:00→20:00)
[2022-02-22] MEDS: atorvastatin 10mg tablet PO SCH (08:00)
[2022-02-22] MEDS: NUT.TX.IMP.RENAL FXN,LAC-REDUC (Nepro) 237 ML VANILLA PO SCH ×3 (08:00→18:06)
--- NOTE | 2022-02-22 08:06 | NUR ---
Message: Dr. Thompson, Mrs. Martinez in 4015 has platelet count of 30. Just FYI, down from 37 yesterday. Yesi on ortho [phone]
[2022-02-22] MEDS: piperacillin/tazo 3.375gm/50ml 50 ML IV SCH (08:24)
[2022-02-22] MEDS: lactobacillus rhamnosus 10,000 MMU CELLS/CAPSULE PO SCH ×2 (10:37→21:14)
[2022-02-22] MEDS: pantoprazole 40mg Tablet.DR PO SCH (10:38)
[2022-02-22] MEDS: levoTHYROXINE 25mcg tablet PO SCH (10:38)
[2022-02-22] MEDS: prednisone 10mg tablet PO SCH (10:38)
[2022-02-22] MEDS ORDERED: MIDAZolam 1 MG/ML 5ML VIAL ONE (11:13)
[2022-02-22] MEDS ORDERED: LIDOcaine Viscous 15ml cup ONE (11:13)
[2022-02-22] MEDS ORDERED: fentaNYL/PF 50MCG/1 ML 2ML syringe ONE (11:13)
[2022-02-22 16:57] LABS: HBSAG SCREEN Negative (Negative); HEP B CORE AB, TOT Negative (Negative)
--- NOTE | 2022-02-22 18:05 | NUR ---
Problems reprioritized. Patient report given, questions answered & plan of care reviewed with
[2022-02-22] MEDS: linezolid 600mg tablet PO SCH (21:13)
[2022-02-22] MEDS: gabapentin 100mg capsule PO SCH (21:15)
[2022-02-23] VITALS (10 sets, daily range): BP systolic 97–131; BP diastolic 35–55
[2022-02-23 06:09] LABS: BASOPHILS % (AUTO) 0.4 % (0-1); EOSINOPHILS # (AUTO) 0.1 X10'3 (0-0.9); EOSINOPHILS % (AUTO) 3.2 % (0-6); HEMATOCRIT 25.3 % (35.0-45.0); HEMOGLOBIN 8.6 g/dl (12.0-16.0); LYMPHOCYTES # (AUTO) 0.2 X10'3 (1.1-4.8); LYMPHOCYTES % (AUTO) 8.4 % (21-51); MEAN CORPUSCULAR HEMOGLOBIN 33.4 PG (27.0-31.0); MEAN CORPUSCULAR VOLUME 98.2 FL (78-98); MONOCYTES # (AUTO) 0.1 X10'3 (0-0.9); MONOCYTES % (AUTO) 4.9 % (2-12); NEUTROPHILS % (AUTO) 83.1 % (42-75); RED BLOOD COUNT 2.57 X10'6 (4.20-5.60); RED CELL DISTRIBUTION WIDTH 17.2 % (11.5-14.5); WHITE BLOOD COUNT 2.5 X10'3 (4.5-11.0)
[2022-02-23 06:14] LABS: ALANINE AMINOTRANSFERASE 81 U/L (12-78); ALBUMIN 2.4 G/DL (3.4-5.0); ALBUMIN/GLOBULIN RATIO 0.8 (1.1-1.5); ALKALINE PHOSPHATASE 189 IU/L (46-116); ANION GAP 9 (8-16); ASPARTATE AMINO TRANSFERASE 55 U/L (10-37); BILIRUBIN,TOTAL 2.3 MG/DL (0.1-1.0); BLOOD UREA NITROGEN 60 MG/DL (7-18); BUN/CREATININE RATIO 20.7 (6.6-38.0); CALCIUM 8.1 MG/DL (8.5-10.1); CHLORIDE 98 MMOL/L (99-107); GLUCOSE 103 MG/DL (70-104); MAGNESIUM 2.2 MG/DL (1.5-2.4); PHOSPHORUS 4.2 MG/DL (2.3-4.5); POTASSIUM 3.8 MMOL/L (3.5-5.1); SODIUM 135 MMOL/L (135-145); TOTAL CARBON DIOXIDE 27.7 MMOL/L (24-32); TOTAL PROTEIN 5.4 G/DL (6.4-8.2); eGFR 15 ML/MIN
[2022-02-23 06:22] LABS: PLATELET COUNT 29 X10'3 (140-440)
--- NOTE | 2022-02-23 06:42 | NUR ---
Problems reprioritized. Patient report given, questions answered & plan of care reviewed with ANANYA TALLEY.
--- NOTE | 2022-02-23 06:47 | NUR ---
RECEIVED REPORT FROM ANANYA RICKS
--- NOTE | 2022-02-23 07:06 | NUR ---
Message: [phone] Juan, platelets today critical at 29. Ellyn [phone]
[2022-02-23] MEDS: docusate sod 100mg capsule PO SCH ×2 (07:30→20:00)
[2022-02-23] MEDS: NUT.TX.IMP.RENAL FXN,LAC-REDUC (Nepro) 237 ML VANILLA PO SCH ×3 (07:33→18:04)
[2022-02-23] MEDS: pantoprazole 40mg Tablet.DR PO SCH (07:34)
[2022-02-23] MEDS: levoTHYROXINE 25mcg tablet PO SCH (07:34)
[2022-02-23] MEDS: lactobacillus rhamnosus 10,000 MMU CELLS/CAPSULE PO SCH ×2 (07:34→21:24)
[2022-02-23] MEDS: linezolid 600mg tablet PO SCH ×2 (07:34→21:24)
[2022-02-23] MEDS: atorvastatin 10mg tablet PO SCH (07:34)
--- NOTE | 2022-02-23 07:45 | NUR ---
Call placed to angio, patient okay to not be npo for TDC placement.
[2022-02-23] MEDS ORDERED: normal saline 1000ml 100 ML IV PRN (08:00)
[2022-02-23 08:06] LABS: ANISOCYTOSIS 1+; ELLIPTOCYTES FEW; PLATELET ESTIMATE DECREASED; POIKILOCYTOSIS 1+; TOTAL CELLS COUNTED 100
[2022-02-23 08:07] LABS: ACANTHOCYTES FEW; BURR CELLS FEW
--- NOTE | 2022-02-23 08:45 | NUR ---
patient to received 2 units of platelets
--- NOTE | 2022-02-23 09:13 | NUR ---
picc RN paged for iv access patient is a hard stick, very edematous and bruised. this RN tried x2 with no success
--- NOTE | 2022-02-23 09:14 | NUR ---
Received call from lab regarding blood culture that was positive and drawn from dialysis catheter. Growth plate and gram stain both reviewed and blood cultures did not grow anything on either. Addendum to be made on micro specimen.
--- NOTE | 2022-02-23 09:24 | NUR ---
spoke to md muniz about using jonnie cath; he is okay with us using it for meds and blood draws; patient placed on line list for this. also spoke to him regarding ammended positive blood culture from dialysis site, and NATHAN both aware of this. Addendum: 02/23/22 at 0925 by Ellyn Lowry RN blood culture never grew anything on growth plate or gram stain.
[2022-02-23] MEDS ORDERED: citrate dextrose 1000ml IV sol 1,000 ML IV ONE (09:55)
--- NOTE | 2022-02-23 09:59 | NUR ---
To coordinate platelet transfusion and TDC placement with angio.
--- NOTE | 2022-02-23 10:58 | NUR ---
Hospitalist discussed code status with patient, to be made DNR per her wishes.
--- NOTE | 2022-02-23 12:16 | NUR ---
angio here to slat pickler patient.
--- NOTE | 2022-02-23 13:19 | NUR ---
PATIENT BACK FROM TDC PLACEMENT, PLACED CALL TO [facility] TO GET DIALYZED TODAY
--- NOTE | 2022-02-23 13:24 | NUR ---
CITRATE GIVEN IN ANGIO
--- NOTE | 2022-02-23 14:36 | NUR ---
Message: [phone] Brown daughter and are here present at bedside. they are requesting to speak with you regarding her as she is not very forth coming with how serious her illness is. if you could come, or talk to them on the phone? cristhian [phone]
[2022-02-23] MEDS ORDERED: heparin 1,000 units/ml 10ml inj HE ONE ×2 (15:00)
--- NOTE | 2022-02-23 17:30 | NUR ---
Kavin cath removed per Dr. Yuan orders. Cannula intact, pressure was held at groin for approximately 20 minutes as patients platelets were critically low and she continued to bleed. Vaseline gauze dressing applied to groin and sealed with tegaderm.
--- NOTE | 2022-02-23 17:58 | NUR ---
message: Juan Elizondo code status was never changed can you please change. thanks! cristhian [phone]
--- NOTE | 2022-02-23 18:32 | NUR ---
Report given to Sherry RN
--- NOTE | 2022-02-23 19:30 | NUR ---
states she usually urinates very little, once a day Addendum: 02/24/22 at 0657 by Ana Henderson RN Amended: Links added.
[2022-02-23] MEDS: gabapentin 100mg capsule PO SCH (21:24)
[2022-02-24 06:41] LABS: BASOPHILS % (AUTO) 0.4 % (0-1); EOSINOPHILS # (AUTO) 0.1 X10'3 (0-0.9); EOSINOPHILS % (AUTO) 4.7 % (0-6); HEMATOCRIT 23.1 % (35.0-45.0); HEMOGLOBIN 7.9 g/dl (12.0-16.0); LYMPHOCYTES # (AUTO) 0.2 X10'3 (1.1-4.8); LYMPHOCYTES % (AUTO) 8.7 % (21-51); MEAN CORPUSCULAR HEMOGLOBIN 33.2 PG (27.0-31.0); MEAN CORPUSCULAR HGB CONC 34.1 g/dL (33.0-36.5); MEAN CORPUSCULAR VOLUME 97.3 FL (78-98); MEAN PLATELET VOLUME 7.8 FL (7.4-10.4); MONOCYTES # (AUTO) 0.1 X10'3 (0-0.9); MONOCYTES % (AUTO) 6.1 % (2-12); NEUTROPHILS # (AUTO) 1.8 X10'3 (1.8-7.7); NEUTROPHILS % (AUTO) 80.1 % (42-75); RED BLOOD COUNT 2.37 X10'6 (4.20-5.60); WHITE BLOOD COUNT 2.3 X10'3 (4.5-11.0)
[2022-02-24 06:54] LABS: PLATELET COUNT 41 X10'3 (140-440)
--- NOTE | 2022-02-24 06:56 | NUR ---
Patient in room ORTHO 4016. I have received report from Sherry RN and had the opportunity to ask questions and assume patient care.
[2022-02-24 07:00] VITALS: BP 119/43
[2022-02-24 07:05] LABS: ALANINE AMINOTRANSFERASE 65 U/L (12-78); ALBUMIN 2.4 G/DL (3.4-5.0); ALBUMIN/GLOBULIN RATIO 0.8 (1.1-1.5); ALKALINE PHOSPHATASE 180 IU/L (46-116); ANION GAP 10 (8-16); ASPARTATE AMINO TRANSFERASE 44 U/L (10-37); BILIRUBIN,TOTAL 2.6 MG/DL (0.1-1.0); BLOOD UREA NITROGEN 72 MG/DL (7-18); BUN/CREATININE RATIO 21.4 (6.6-38.0); CALCIUM 8.3 MG/DL (8.5-10.1); CHLORIDE 100 MMOL/L (99-107); CREATININE 3.37 MG/DL (0.40-0.90); GLUCOSE 89 MG/DL (70-104); MAGNESIUM 2.3 MG/DL (1.5-2.4); PHOSPHORUS 4.1 MG/DL (2.3-4.5); POTASSIUM 3.7 MMOL/L (3.5-5.1); SODIUM 135 MMOL/L (135-145); TOTAL CARBON DIOXIDE 25.1 MMOL/L (24-32); TOTAL PROTEIN 5.4 G/DL (6.4-8.2); eGFR 13 ML/MIN
[2022-02-24] MEDS: pantoprazole 40mg Tablet.DR PO SCH (07:48)
[2022-02-24] MEDS: linezolid 600mg tablet PO SCH ×2 (07:48→20:50)
[2022-02-24] MEDS: levoTHYROXINE 25mcg tablet PO SCH (07:48)
[2022-02-24] MEDS: lactobacillus rhamnosus 10,000 MMU CELLS/CAPSULE PO SCH ×2 (07:48→20:50)
[2022-02-24] MEDS: atorvastatin 10mg tablet PO SCH (07:48)
[2022-02-24] MEDS: docusate sod 100mg capsule PO SCH ×2 (07:49→20:00)
[2022-02-24] MEDS: NUT.TX.IMP.RENAL FXN,LAC-REDUC (Nepro) 237 ML VANILLA PO SCH ×3 (07:49→18:55)
[2022-02-24] MEDS ORDERED: heparin 1,000 units/ml 10ml inj HE ONE ×2 (10:00)
[2022-02-24 11:00] VITALS: BP 147/49
[2022-02-24 15:00] VITALS: BP 93/35
--- NOTE | 2022-02-24 15:55 | NUR ---
F/u 02/24: Pt PO meals/ONS continues to fluctuate though mostly ~25% avg meals w/ increase in ONS ~70% past 3.5 days partially meeting estimated needs. Two BM's today refusing routine colace and receiving routine probiotic w/ no GI symptoms at this time per EMR. JOSE DANIEL d/w RN regarding if to continue probiotic given WBC 2.3 per physician discretion. Will continue to monitor for PO trends and further nutrition intervention needs this admit. Recommendations: 1. Liberalize to regular diet given persistent poor PO intake meals 2. Nepro TIDWM 3. Encourage PO meals/ONS 4. Bowel care per rx 5. Scaled wts w/ HD Addendum: 02/24/22 at [address] Amended: Links added.
[2022-02-24 17:00] VITALS: BP 105/40
--- NOTE | 2022-02-24 18:30 | NUR ---
Patient in room ORTHO 4016. I have received report from Caty HARE and had the opportunity to ask questions and assume patient care.
--- NOTE | 2022-02-24 18:50 | NUR ---
patient had dialysis this am. 200mls off per report. all cares given. No c/o pain. report given to Sue HARE
[2022-02-24] MEDS: gabapentin 100mg capsule PO SCH (20:50)
[2022-02-24] MEDS: HYDROcodone/acetaminophen 5mg/325mg tablet PO PRN (21:53)
[2022-02-24 22:00] VITALS: BP 98/24
[2022-02-24 22:15] VITALS: BP 100/31
[2022-02-25 06:00] VITALS: BP 99/34
--- NOTE | 2022-02-25 06:23 | NUR ---
Problems reprioritized. Patient report given, questions answered & plan of care reviewed with Kalen HARE.
--- NOTE | 2022-02-25 06:30 | NUR ---
Patient in room ORTHO 4016. I have received report from LYDIA HARE and had the opportunity to ask questions and assume patient care.
[2022-02-25 06:34] LABS: BASOPHILS % (AUTO) 0.4 % (0-1); EOSINOPHILS # (AUTO) 0.1 X10'3 (0-0.9); EOSINOPHILS % (AUTO) 2.9 % (0-6); HEMATOCRIT 23.3 % (35.0-45.0); HEMOGLOBIN 7.9 g/dl (12.0-16.0); LYMPHOCYTES # (AUTO) 0.3 X10'3 (1.1-4.8); LYMPHOCYTES % (AUTO) 13.1 % (21-51); MEAN CORPUSCULAR HEMOGLOBIN 33.4 PG (27.0-31.0); MEAN CORPUSCULAR HGB CONC 34.1 g/dL (33.0-36.5); MEAN CORPUSCULAR VOLUME 97.7 FL (78-98); MEAN PLATELET VOLUME 8.6 FL (7.4-10.4); MONOCYTES # (AUTO) 0.1 X10'3 (0-0.9); MONOCYTES % (AUTO) 4.3 % (2-12); NEUTROPHILS % (AUTO) 79.3 % (42-75); RED BLOOD COUNT 2.38 X10'6 (4.20-5.60); RED CELL DISTRIBUTION WIDTH 16.8 % (11.5-14.5); WHITE BLOOD COUNT 2.5 X10'3 (4.5-11.0)
[2022-02-25 06:51] LABS: PLATELET COUNT 33 X10'3 (140-440)
[2022-02-25 06:56] LABS: ALANINE AMINOTRANSFERASE 70 U/L (12-78); ALBUMIN 2.3 G/DL (3.4-5.0); ALBUMIN/GLOBULIN RATIO 0.7 (1.1-1.5); ALKALINE PHOSPHATASE 177 IU/L (46-116); ANION GAP 10 (8-16); ASPARTATE AMINO TRANSFERASE 44 U/L (10-37); BILIRUBIN,TOTAL 2.8 MG/DL (0.1-1.0); BLOOD UREA NITROGEN 41 MG/DL (7-18); BUN/CREATININE RATIO 16.8 (6.6-38.0); CHLORIDE 100 MMOL/L (99-107); CREATININE 2.44 MG/DL (0.40-0.90); GLUCOSE 75 MG/DL (70-104); PHOSPHORUS 3.2 MG/DL (2.3-4.5); POTASSIUM 4.1 MMOL/L (3.5-5.1); SODIUM 137 MMOL/L (135-145); TOTAL CARBON DIOXIDE 26.7 MMOL/L (24-32); TOTAL PROTEIN 5.4 G/DL (6.4-8.2); eGFR 19 ML/MIN
[2022-02-25 07:17] LABS: ANISOCYTOSIS 1+; PLATELET ESTIMATE DECREASED; POIKILOCYTOSIS FEW
[2022-02-25] MEDS: linezolid 600mg tablet PO SCH ×2 (08:54→21:14)
[2022-02-25] MEDS: levoTHYROXINE 25mcg tablet PO SCH (08:54)
[2022-02-25] MEDS: docusate sod 100mg capsule PO SCH ×2 (08:54→20:00)
[2022-02-25] MEDS: lactobacillus rhamnosus 10,000 MMU CELLS/CAPSULE PO SCH ×2 (08:54→21:14)
[2022-02-25] MEDS: atorvastatin 10mg tablet PO SCH (08:54)
[2022-02-25] MEDS: pantoprazole 40mg Tablet.DR PO SCH (08:54)
[2022-02-25] MEDS: NUT.TX.IMP.RENAL FXN,LAC-REDUC (Nepro) 237 ML VANILLA PO SCH ×3 (09:02→20:00)
[2022-02-25 10:00] VITALS: BP 98/38
[2022-02-25 14:00] VITALS: BP 129/42
--- NOTE | 2022-02-25 17:30 | NUR ---
CALLED DR. CARRERA AND WAS INFORMED THAT PLATELETT TODAY IS 33 AND SAID THERES NOTHING THAT CAN BE DONE IT HAS BEEN LOW EVERYDAY.
[2022-02-25 18:30] VITALS: BP 146/44
--- NOTE | 2022-02-25 18:30 | NUR ---
Problems reprioritized. Patient report given, questions answered & plan of care reviewed with PAT RN.
[2022-02-25] MEDS: gabapentin 100mg capsule PO SCH (21:15)
[2022-02-25 22:00] VITALS: BP 126/37
[2022-02-25] MEDS: HYDROcodone/acetaminophen 5mg/325mg tablet PO PRN (23:19)
[2022-02-26 06:00] VITALS: BP 118/47
[2022-02-26 07:11] LABS: BASOPHILS % (AUTO) 0.5 % (0-1); EOSINOPHILS # (AUTO) 0.1 X10'3 (0-0.9); EOSINOPHILS % (AUTO) 2.8 % (0-6); HEMATOCRIT 23.3 % (35.0-45.0); HEMOGLOBIN 7.9 g/dl (12.0-16.0); LYMPHOCYTES # (AUTO) 0.4 X10'3 (1.1-4.8); LYMPHOCYTES % (AUTO) 11.7 % (21-51); MEAN CORPUSCULAR HEMOGLOBIN 33.4 PG (27.0-31.0); MEAN CORPUSCULAR VOLUME 98.5 FL (78-98); MEAN PLATELET VOLUME 8.5 FL (7.4-10.4); MONOCYTES # (AUTO) 0.1 X10'3 (0-0.9); MONOCYTES % (AUTO) 2.6 % (2-12); NEUTROPHILS # (AUTO) 2.8 X10'3 (1.8-7.7); NEUTROPHILS % (AUTO) 82.4 % (42-75); RED BLOOD COUNT 2.37 X10'6 (4.20-5.60); RED CELL DISTRIBUTION WIDTH 16.4 % (11.5-14.5); WHITE BLOOD COUNT 3.4 X10'3 (4.5-11.0)
[2022-02-26 07:37] LABS: ALANINE AMINOTRANSFERASE 56 U/L (12-78); ALBUMIN 2.4 G/DL (3.4-5.0); ALBUMIN/GLOBULIN RATIO 0.8 (1.1-1.5); ALKALINE PHOSPHATASE 164 IU/L (46-116); ANION GAP 12 (8-16); ASPARTATE AMINO TRANSFERASE 39 U/L (10-37); BILIRUBIN,TOTAL 2.5 MG/DL (0.1-1.0); BLOOD UREA NITROGEN 53 MG/DL (7-18); BUN/CREATININE RATIO 16.9 (6.6-38.0); CALCIUM 8.3 MG/DL (8.5-10.1); CHLORIDE 98 MMOL/L (99-107); CREATININE 3.13 MG/DL (0.40-0.90); GLUCOSE 78 MG/DL (70-104); MAGNESIUM 1.9 MG/DL (1.5-2.4); POTASSIUM 4.1 MMOL/L (3.5-5.1); SODIUM 135 MMOL/L (135-145); TOTAL CARBON DIOXIDE 24.7 MMOL/L (24-32); TOTAL PROTEIN 5.3 G/DL (6.4-8.2); eGFR 14 ML/MIN
[2022-02-26] MEDS: docusate sod 100mg capsule PO SCH ×2 (08:00→20:00)
[2022-02-26] MEDS: NUT.TX.IMP.RENAL FXN,LAC-REDUC (Nepro) 237 ML VANILLA PO SCH ×3 (08:00→18:00)
[2022-02-26 08:52] LABS: PLATELET COUNT 27 X10'3 (140-440)
[2022-02-26] MEDS: lactobacillus rhamnosus 10,000 MMU CELLS/CAPSULE PO SCH ×2 (09:00→20:00)
[2022-02-26] MEDS: levoTHYROXINE 25mcg tablet PO SCH (09:00)
[2022-02-26] MEDS: pantoprazole 40mg Tablet.DR PO SCH (09:00)
[2022-02-26] MEDS: linezolid 600mg tablet PO SCH ×2 (09:00→20:00)
[2022-02-26] MEDS: atorvastatin 10mg tablet PO SCH (09:00)
[2022-02-26 10:00] VITALS: BP 104/43
[2022-02-26 18:00] VITALS: BP 132/44
[2022-02-26] MEDS: gabapentin 100mg capsule PO SCH (20:00)
[2022-02-26 22:00] VITALS: BP 119/44
[2022-02-27] MEDS: HYDROcodone/acetaminophen 5mg/325mg tablet PO PRN ×2 (00:31→20:55)
[2022-02-27 04:49] LABS: BASOPHILS % (AUTO) 0.5 % (0-1); EOSINOPHILS # (AUTO) 0.1 X10'3 (0-0.9); EOSINOPHILS % (AUTO) 2.7 % (0-6); HEMATOCRIT 24.3 % (35.0-45.0); HEMOGLOBIN 8.2 g/dl (12.0-16.0); LYMPHOCYTES # (AUTO) 0.4 X10'3 (1.1-4.8); MEAN CORPUSCULAR HEMOGLOBIN 33.4 PG (27.0-31.0); MEAN CORPUSCULAR HGB CONC 33.7 g/dL (33.0-36.5); MEAN CORPUSCULAR VOLUME 99.3 FL (78-98); MONOCYTES # (AUTO) 0.1 X10'3 (0-0.9); MONOCYTES % (AUTO) 2.6 % (2-12); NEUTROPHILS # (AUTO) 3.7 X10'3 (1.8-7.7); NEUTROPHILS % (AUTO) 85.2 % (42-75); RED BLOOD COUNT 2.44 X10'6 (4.20-5.60); RED CELL DISTRIBUTION WIDTH 16.2 % (11.5-14.5); WHITE BLOOD COUNT 4.3 X10'3 (4.5-11.0)
[2022-02-27 05:15] LABS: ALANINE AMINOTRANSFERASE 60 U/L (12-78); ALBUMIN 2.4 G/DL (3.4-5.0); ALBUMIN/GLOBULIN RATIO 0.9 (1.1-1.5); ALKALINE PHOSPHATASE 226 IU/L (46-116); ANION GAP 12 (8-16); ASPARTATE AMINO TRANSFERASE 43 U/L (10-37); BILIRUBIN,TOTAL 1.7 MG/DL (0.1-1.0); BLOOD UREA NITROGEN 63 MG/DL (7-18); BUN/CREATININE RATIO 16.7 (6.6-38.0); CALCIUM 8.4 MG/DL (8.5-10.1); CHLORIDE 98 MMOL/L (99-107); CREATININE 3.78 MG/DL (0.40-0.90); GLUCOSE 90 MG/DL (70-104); MAGNESIUM 1.9 MG/DL (1.5-2.4); PHOSPHORUS 4.2 MG/DL (2.3-4.5); POTASSIUM 4.1 MMOL/L (3.5-5.1); SODIUM 134 MMOL/L (135-145); TOTAL CARBON DIOXIDE 24.3 MMOL/L (24-32); TOTAL PROTEIN 5.2 G/DL (6.4-8.2); eGFR 11 ML/MIN
[2022-02-27 06:10] VITALS: BP 127/40
--- NOTE | 2022-02-27 07:04 | NUR ---
Patient in room ORTHO 4016. I have received report from Larissa HARE and had the opportunity to ask questions and assume patient care.
[2022-02-27] MEDS: NUT.TX.IMP.RENAL FXN,LAC-REDUC (Nepro) 237 ML VANILLA PO SCH ×3 (08:00→18:20)
--- NOTE | 2022-02-27 08:41 | NUR ---
RECEIVED REPORT FROM ANANYA HAQUE
[2022-02-27] MEDS: levoTHYROXINE 25mcg tablet PO SCH (09:04)
[2022-02-27] MEDS: atorvastatin 10mg tablet PO SCH (09:04)
[2022-02-27] MEDS: lactobacillus rhamnosus 10,000 MMU CELLS/CAPSULE PO SCH ×2 (09:04→20:55)
[2022-02-27] MEDS: pantoprazole 40mg Tablet.DR PO SCH (09:04)
[2022-02-27] MEDS: docusate sod 100mg capsule PO SCH (09:04)
[2022-02-27] MEDS: linezolid 600mg tablet PO SCH (09:05)
--- NOTE | 2022-02-27 09:07 | NUR ---
Problems reprioritized. Patient report given, questions answered & plan of care reviewed with Ellyn HARE.
[2022-02-27 09:49] LABS: PLATELET COUNT 23 X10'3 (140-440)
[2022-02-27] MEDS ORDERED: normal saline 1000ml 100 ML IV PRN (09:55)
[2022-02-27] MEDS ORDERED: heparin 1,000 units/ml 10ml inj HE ONE ×2 (10:00)
[2022-02-27 11:27] VITALS: BP 106/37
[2022-02-27 18:00] VITALS: BP 108/37
--- NOTE | 2022-02-27 18:14 | NUR ---
Report given to ANANYA Dias
[2022-02-27] MEDS: gabapentin 100mg capsule PO SCH (20:55)
[2022-02-27 22:00] VITALS: BP 107/39
[2022-02-28 06:00] VITALS: BP 116/72
--- NOTE | 2022-02-28 06:17 | NUR ---
RECEIVED REPORT FROM ANANYA WHITING
[2022-02-28 07:14] LABS: BASOPHILS % (AUTO) 0.9 % (0-1); EOSINOPHILS # (AUTO) 0.1 X10'3 (0-0.9); EOSINOPHILS % (AUTO) 1.9 % (0-6); LYMPHOCYTES # (AUTO) 0.4 X10'3 (1.1-4.8); LYMPHOCYTES % (AUTO) 7.7 % (21-51); MEAN CORPUSCULAR HEMOGLOBIN 33.1 PG (27.0-31.0); MEAN CORPUSCULAR HGB CONC 33.5 g/dL (33.0-36.5); MEAN PLATELET VOLUME 8.5 FL (7.4-10.4); MONOCYTES # (AUTO) 0.1 X10'3 (0-0.9); MONOCYTES % (AUTO) 1.8 % (2-12); NEUTROPHILS % (AUTO) 87.7 % (42-75); RED BLOOD COUNT 2.43 X10'6 (4.20-5.60); RED CELL DISTRIBUTION WIDTH 16.3 % (11.5-14.5); WHITE BLOOD COUNT 4.6 X10'3 (4.5-11.0)
[2022-02-28 07:18] LABS: PLATELET COUNT 21 X10'3 (140-440)
--- NOTE | 2022-02-28 07:19 | NUR ---
PAGER ID: [phone] MESSAGE: Venkat Martinez platelets critical today at 21, been chronically low all admission. thanks cristhian [phone]
[2022-02-28 07:35] LABS: ALANINE AMINOTRANSFERASE 64 U/L (12-78); ALBUMIN 2.4 G/DL (3.4-5.0); ALBUMIN/GLOBULIN RATIO 0.8 (1.1-1.5); ALKALINE PHOSPHATASE 200 IU/L (46-116); ANION GAP 12 (8-16); ASPARTATE AMINO TRANSFERASE 41 U/L (10-37); BILIRUBIN,TOTAL 2.8 MG/DL (0.1-1.0); BLOOD UREA NITROGEN 41 MG/DL (7-18); BUN/CREATININE RATIO 14.1 (6.6-38.0); CALCIUM 8.5 MG/DL (8.5-10.1); CHLORIDE 101 MMOL/L (99-107); CREATININE 2.91 MG/DL (0.40-0.90); GLUCOSE 71 MG/DL (70-104); POTASSIUM 4.4 MMOL/L (3.5-5.1); SODIUM 139 MMOL/L (135-145); TOTAL CARBON DIOXIDE 25.7 MMOL/L (24-32); TOTAL PROTEIN 5.6 G/DL (6.4-8.2); eGFR 15 ML/MIN
[2022-02-28] MEDS: NUT.TX.IMP.RENAL FXN,LAC-REDUC (Nepro) 237 ML VANILLA PO SCH ×3 (08:17→18:00)
[2022-02-28] MEDS: lactobacillus rhamnosus 10,000 MMU CELLS/CAPSULE PO SCH ×2 (08:36→20:05)
[2022-02-28] MEDS: pantoprazole 40mg Tablet.DR PO SCH (08:36)
[2022-02-28] MEDS: levoTHYROXINE 25mcg tablet PO SCH (08:36)
[2022-02-28] MEDS: atorvastatin 10mg tablet PO SCH (08:36)
--- NOTE | 2022-02-28 08:45 | NUR ---
Reassessment: Pt PO meals/ONS continues to fluctuate though mostly ~25% avg meals w/ ~50% past 3.5 days partially meeting estimated needs. Given malnutrition status and prolonged poor PO this admit, pt may benefit from supplemental TF at this time if within POC. Pt continues on HD last treatment 02/27 w/ 2L out per documentation. LBM 02/27. Will continue to monitor. Recommendations: 1. Liberalize to regular diet given persistent poor PO intake meals 2. Nepro TIDWM 3. Encourage PO meals/ONS 4. Bowel care per rx 5. Scaled wts w/ HD 6. Consider supplemental TF given prolonged poor PO if within POC Addendum: 02/28/22 at [address] Amended: Links added.
[2022-02-28 10:21] VITALS: BP 105/38
--- NOTE | 2022-02-28 12:10 | NUR ---
PRESSURE ULCER EDUCATION: DEFINITION: A pressure ulcer is an area of skin that breaks down when you stay in one position too long. The constant pressure against the skin reduces the blood flow to that area and the affected tissue dies. CAUSES: "Being bedridden or in a wheelchair "Fragile skin "Having a chronic condition, such as diabetes or vascular disease "Inability to move certain parts of your body without assistance "Older age "Incontinence of urine or stool SYMPTOMS: "A reddened area that DOES NOT turn white when pressed on - this can be the beginning of a pressure ulcer "A blister, deep sore or a crater - these can be advanced pressure ulcers FIRST AID: "Relieve the pressure on this area "Keep the area clean and dry "Call your primary doctor if you see any of the above symptoms "DO NOT massage the area "DO NOT use a donut shaped or ring shaped pillow- these actually interfere with the blood flow and cause complications PREVENTION: "Check for pressure ulcers everyday "Change position at least every two hours to relieve pressure "Use items that help relieve pressure- pillows, sheepskin, foam padding, and powders. "Keep skin clean and dry "Eat healthy well balanced meals "Exercise daily IF YOU SEE ANY OF THESE SYMPTOMS WHILE IN THE HOSPITAL - TELL YOUR NURSE IMMEDIATELY. IF YOU SEE ANY OF THESE SYMPTOMS WHILE AT HOME OR HAVE ANY QUESTIONS OR CONCERNS ABOUT PRESSURE ULCERS - CALL YOUR PRIMARY DOCTOR IMMEDIATELY. Addendum: 02/28/22 at 1210 by Evelyne Chiu LVN Amended: Links added.
--- NOTE | 2022-02-28 18:21 | NUR ---
Report given to ANANYA Dias
[2022-02-28 18:39] VITALS: BP 103/32
[2022-02-28] MEDS: gabapentin 100mg capsule PO SCH (20:05)
[2022-02-28 22:00] VITALS: BP 117/45
[2022-02-28] MEDS: HYDROcodone/acetaminophen 5mg/325mg tablet PO PRN (22:40)
[2022-03-01 06:00] VITALS: BP 114/44
--- NOTE | 2022-03-01 06:41 | NUR ---
Patient in room ORTHO 4016. I have received report from Larissa HARE and had the opportunity to ask questions and assume patient care.
[2022-03-01] MEDS ORDERED: EPOETIN ALFA-EPBX 20,000 UNIT/ML 1 ML MDV IV ONE (08:00)
[2022-03-01] MEDS ORDERED: heparin 1,000 units/ml 10ml inj HE ONE ×2 (08:00)
[2022-03-01] MEDS ORDERED: albumin (human) 25% 100ml IV 100 ML IV PRN (08:00)
[2022-03-01] MEDS: NUT.TX.IMP.RENAL FXN,LAC-REDUC (Nepro) 237 ML VANILLA PO SCH ×2 (08:00→13:00)
[2022-03-01] MEDS: lactobacillus rhamnosus 10,000 MMU CELLS/CAPSULE PO SCH (09:03)
[2022-03-01] MEDS: levoTHYROXINE 25mcg tablet PO SCH (09:04)
[2022-03-01] MEDS: pantoprazole 40mg Tablet.DR PO SCH (09:04)
[2022-03-01] MEDS: atorvastatin 10mg tablet PO SCH (09:04)
[2022-03-01 10:00] VITALS: BP 112/43
--- NOTE | 2022-03-01 17:56 | NUR ---
Patient discharge home with family. Discharge information was reviewed with patient and spouse and was informed patient needs to call [facility] for appointment, [facility] phone number was provided to patient. Patient spouse and patient verbalize understanding of discharge information and to call for an appointment for dialysis. Staff assist resident with all belongings to personal vehicle.
--- NOTE | 2022-03-01 19:06 | NUR ---
LABORATORY CLERK documentation: I have reviewed and agree with all interventions, assessments performed and documented by Cielo dodd , I cpmpleted the physical assessment on this one.
== END 2022-03-01 17:50 | disposition home health service (06) | DRG 673 ==
LOC: ER 23:22 → ED HOLD 02-10 02:10 → ORTHO 4S 02-10 11:30
PROVIDERS: ADMIT Internal Medicine; ATTEND Internal Medicine
PROC: 30233R1 Transfusion of Nonautologous Platelets into Peripheral Vein, Percutaneous Approach (ICD-10-PCS; principal; 2022-02-18)
PROC: 5A1D70Z Performance of Urinary Filtration, Intermittent, Less than 6 Hours Per Day (ICD-10-PCS; 2022-02-18)
PROC: 30233N1 Transfusion of Nonautologous Red Blood Cells into Peripheral Vein, Percutaneous Approach (ICD-10-PCS; 2022-02-19)
PROC: 5A1D70Z Performance of Urinary Filtration, Intermittent, Less than 6 Hours Per Day (ICD-10-PCS; 2022-02-19)
PROC: 5A1D70Z Performance of Urinary Filtration, Intermittent, Less than 6 Hours Per Day (ICD-10-PCS; 2022-02-21)
PROC: 0DJ08ZZ Inspection of Upper Intestinal Tract, Via Natural or Artificial Opening Endoscopic (ICD-10-PCS; 2022-02-22)
PROC: 0JH63XZ Insertion of Tunneled Vascular Access Device into Chest Subcutaneous Tissue and Fascia, Percutaneous Approach (ICD-10-PCS; 2022-02-23)
PROC: 02HV33Z Insertion of Infusion Device into Superior Vena Cava, Percutaneous Approach (ICD-10-PCS; 2022-02-23)
PROC: B548ZZA Ultrasonography of Superior Vena Cava, Guidance (ICD-10-PCS; 2022-02-23)
PROC: B5181ZA Fluoroscopy of Superior Vena Cava using Low Osmolar Contrast, Guidance (ICD-10-PCS; 2022-02-23)
PROC: 5A1D70Z Performance of Urinary Filtration, Intermittent, Less than 6 Hours Per Day (ICD-10-PCS; 2022-02-24)
PROC: 5A1D70Z Performance of Urinary Filtration, Intermittent, Less than 6 Hours Per Day (ICD-10-PCS; 2022-02-27)
PROC: 5A1D70Z Performance of Urinary Filtration, Intermittent, Less than 6 Hours Per Day (ICD-10-PCS; 2022-03-01)
DX: N17.9 Acute kidney failure, unspecified (principal); U07.1 COVID-19; D61.818 Other pancytopenia; I50.30 Unspecified diastolic (congestive) heart failure; K76.6 Portal hypertension; D68.9 Coagulation defect, unspecified; I13.2 Hypertensive heart and chronic kidney disease with heart failure and with stage 5 chronic kidney disease, or end stage renal disease; L03.114 Cellulitis of left upper limb; K92.1 Melena; N18.6 End stage renal disease; E87.6 Hypokalemia; F10.20 Alcohol dependence, uncomplicated; E87.5 Hyperkalemia; I48.91 Unspecified atrial fibrillation; J44.9 Chronic obstructive pulmonary disease, unspecified; K74.60 Unspecified cirrhosis of liver; E03.9 Hypothyroidism, unspecified; E78.5 Hyperlipidemia, unspecified; D50.0 Iron deficiency anemia secondary to blood loss (chronic); I25.10 Atherosclerotic heart disease of native coronary artery without angina pectoris; K31.89 Other diseases of stomach and duodenum; Z66 Do not resuscitate; R16.1 Splenomegaly, not elsewhere classified; R19.7 Diarrhea, unspecified; Z78.9 Other specified health status; Z85.038 Personal history of other malignant neoplasm of large intestine; Z95.0 Presence of cardiac pacemaker; Z95.2 Presence of prosthetic heart valve; Z99.2 Dependence on renal dialysis; Z91.012 Allergy to eggs; Z91.018 Allergy to other foods; Z81.1 Family history of alcohol abuse and dependence; Z82.49 Family history of ischemic heart disease and other diseases of the circulatory system; Z80.1 Family history of malignant neoplasm of trachea, bronchus and lung; Z79.899 Other long term (current) drug therapy; Z79.82 Long term (current) use of aspirin; Z95.1 Presence of aortocoronary bypass graft
CPT/HCPCS: 36415; 36430; 36558; 43235; 71045; 73200; 76700; 76770; 76937; 77001; 80048; 80053; 81001; 81003; 82272; 82570; 82948; 83605; 83615; 83690; 83735; 83935; 84100; 84132; 84133; 84145; 84155; 84156; 84165; 84166; 84300; 84560; 85007; 85008; 85025; 85379; 85610; 86022; 86140; 86704; 86705; 86885; 86900; 86901; 86920; 87040; 87081; 87340; 87635; 90935; 93005; 93971; 96374; 96375; 97110; 97116; 97161; 97530; 99152; 99285; A4565; A4620; A6209; A6212; A6213; A6222; A6223; A6250; A6253; A6258; A6402; A6446; A6449; A9270; C1750; C1752; C1769; C1894; G0257; G0378; J0456; J1644; J1815; J1940; J2020; J2150; J2250; J2543; J2930; J3010; J3490; J7030; J7040; J7050; J7070; J7512; P9016; P9035; P9047; Q4081